=== PATIENT | male | born 1960 | race Caucasian/White ===

== ENCOUNTER → 2018-02-27 11:18 | Outpatient (CLI) | payer OTHER, MEDICAID, SELFPAY ==
--- NOTE | 2018-02-27 | DI.MRI.S_ITS ---
PROCEDURE: MR HEAD/BRAIN WO CON INDICATIONS: MEMORY LOSS/WEAKNESS TECHNIQUE: Noncontrast axial T1 spin echo, axial T2 fast spin echo, sagittal and axial FLAIR, coronal T2 fast spin echo, axial gradient echo, axial diffusion and ADC through the brain. COMPARISON: None. FINDINGS: Image quality: Excellent. CSF Spaces: Basal cisterns are patent. No extra-axial fluid collections. Ventricles are normal in size and shape. Brain: No intracranial masses or hemorrhage. Fernandez/white matter interface is normal. Brainstem appears normal. Diffusion-weighted images demonstrate no acute ischemic insult. No chronic ischemic insults. Normal intravascular flow voids are present. Skull and face: Calvarium has normal marrow signal. Orbits appear normal. Sinuses: Sinuses and mastoids are clear. IMPRESSION: Normal for age, source of current symptoms is not seen. Dictated by: Pepe Espana M.D. on 02/27/2018 at 12:36 Approved by: Pepe Espana M.D. on 02/27/2018 at 12:37
== END ==
PROVIDERS: Family Provider Family Medicine; Visit Provider Specialist
DX: R41.3 Other amnesia (principal); R53.1 Weakness
CPT/HCPCS: 70551

== ENCOUNTER → 2018-08-24 10:35 | Outpatient (CLI) | payer OTHER, MEDICAID, SELFPAY ==
--- NOTE | 2018-08-24 | DI.RAD.S_ITS ---
PROCEDURE: XR LUMBAR SPINE MIN 4V INDICATIONS: BACK PAIN TECHNIQUE: 5 views of the lumbar spine acquired. COMPARISON: None. FINDINGS: Bones: 5 nonrib-bearing vertebrae are present. Trace multilevel retrolisthesis. Trace spondylolisthesis L4-L5. Multilevel disc degeneration, severe L5-S1. Moderate L4-L5 and L5-S1 facet joint arthropathy. No vertebral body compression fractures. No suspicious bony lesions. Soft tissues: Overlying bowel gas pattern is normal. No suspicious soft tissue calcifications. Flexion/extension: There is limited range of motion, with preserved normal alignment. IMPRESSION: 1. Limited range of motion and multilevel degenerative changes. Dictated by: Hi Penaloza [facility] Interpreted: Jennifer Stahl MD on 08/24/2018 at 11:18 Approved by: Jennifer Stahl M.D. on 08/24/2018 at 12:22
== END ==
PROVIDERS: Family Provider Family Medicine; Visit Provider Family Medicine
DX: M51.37 Other intervertebral disc degeneration, lumbosacral region (principal); M47.26 Other spondylosis with radiculopathy, lumbar region; M47.27 Other spondylosis with radiculopathy, lumbosacral region
CPT/HCPCS: 72110

== ENCOUNTER → 2021-07-30 08:22 | Outpatient (CLI) | payer MEDICARE, OTHER, MEDICAID, SELFPAY ==
[2021-07-30 19:39] LABS: Add Manual Diff / Slide Review NO; Basophils Absolute Auto 100 /uL (0-100); Basophils Percent Auto 0.6 % (0-2); Eosinophils Absolute Auto 100 /uL (0-450); Eosinophils Percent Auto 1.4 % (2-4); Hematocrit 51.4 % (41-53); Hemoglobin 17.6 g/dL (13.5-17.5); Lymphocytes Absolute Auto 3400 /uL (1100-4500); Lymphocytes Percent Auto 34.5 % (25-40); Mean Corpuscular HGB Conc 34.2 % (30-36); Mean Corpuscular Hemoglobin 32.5 PG (26-34); Mean Corpuscular Volume 94.9 fL (80-100); Monocytes Absolute Auto 1000 /uL (0-900); Monocytes Percent Auto 10.2 % (3-14); Neutrophils Absolute Auto 5300 /uL (1500-7000); Neutrophils Percent Auto 53.3 % (50-75); Platelet Count 247 X10^3/uL (150-400); Red Blood Cell Count 5.41 X10^6/uL (4.5-5.9); Red Cell Distribution Width 13.5 % (11.6-14.8)
[2021-07-30 20:00] LABS: Alanine Aminotransferase 60 IU/L (<50); Albumin Globulin Ratio 1.5 (1.0-2.8); Alkaline Phosphatase 97 U/L (38-126); Aspartate Aminotransferase 34 IU/L (17-59); BUN Creatinine Ratio 13.8 (6-22); Bilirubin Total 1.4 mg/dL (0.2-1.3); Blood Urea Nitrogen 15 mg/dL (9-20); Calcium 9.5 mg/dL (8.4-10.2); Carbon Dioxide 29 mmol/L (22-32); Chloride 103 mmol/L (98-107); Cholesterol 148 mg/dL (140-199); Estimated Glomerular Filt Rate > 60.0 mL/min (>60); Globulin 2.7 g/dL (1.7-4.1); Glucose 114 mg/dL (80-110); HDL Cholesterol 27 mg/dL (40-60); HEMOLYSIS < 15 (0-50); LDL Cholesterol Calculated 76 mg/dL (<100); Potassium 4.6 mmol/L (3.4-5.1); Sodium 138 mmol/L (137-145); Total Protein 6.7 g/dL (6.3-8.2); Triglycerides 223 mg/dL (35-150)
== END ==
PROVIDERS: Family Provider Family Medicine; PCP Physician Assistant; Visit Provider Physician Assistant
DX: R06.83 Snoring (principal); E78.5 Hyperlipidemia, unspecified; I10 Essential (primary) hypertension
CPT/HCPCS: 80053; 80061; 85025

== ENCOUNTER → 2021-10-16 09:57 | Outpatient (CLI) | payer MEDICARE, MEDICAID, SELFPAY ==
--- NOTE | 2021-10-16 09:58 | DI.MRI.S_ITS ---
PROCEDURE: MR LUMBAR SPINE WO CON INDICATIONS: Chronic progressive low back pain TECHNIQUE: Noncontrast sagittal T1 spin echo and T2 fast echo, sagittal STIR, axial T1 and T2 fast spin echo through the lumbar spine. In cases with scoliosis, additional coronal T2 fast spin echo may be performed. COMPARISON: None. FINDINGS: Image quality: Excellent. Alignment and Curvature: There is normal bony alignment. Bone Marrow: Marrow is of normal overall signal. No acute vertebral body compression fractures. Spinal Cord: Conus medullaris terminates at the L1 level. Visualized cord demonstrates normal signal and size. Paraspinous Soft Tissues: No paravertebral masses. T12-L1: Normal appearance. L1-L2: Normal appearance. L2-L3: Disc space narrowing with circumferential disc bulge present. There is a superimposed left subarticular protrusion extrusion and subligamentous inferior migration disc fragment to the level of the mid L3. There is effacement of the left lateral recess well as moderate left foraminal stenosis present. Minimal central and no right foraminal stenosis. L3-L4: Disc space narrowing and vacuum disc phenomena present. There is a circumferential disc bulge with mild central stenosis present. Arthropathy results in moderate right and left foraminal stenosis. L4-L5: Disc height is preserved. Moderate facet arthropathy present. No central stenosis. Moderate bilateral foraminal stenosis noted. L5-S1: Normal appearance. IMPRESSION: 1. Focal left subarticular disc protrusion at L2-3 fills the left lateral recess and results in moderate left foraminal stenosis. 2. Multilevel degenerative disc disease and arthropathy also results in varying degrees central and foraminal stenosis including moderate foraminal stenosis L3-4 and L4-5 Approved by: Hesham Murray M.D. on 10/17/2021 at 9:51
== END ==
PROVIDERS: Family Provider Family Medicine; PCP Physician Assistant; Referring Provider Physical Medicine & Rehabilitation; Visit Provider Physical Medicine & Rehabilitation
DX: M51.26 Other intervertebral disc displacement, lumbar region (principal); M51.36 Other intervertebral disc degeneration, lumbar region; M47.816 Spondylosis without myelopathy or radiculopathy, lumbar region; M48.061 Spinal stenosis, lumbar region without neurogenic claudication; G89.29 Other chronic pain
CPT/HCPCS: 72148

== ENCOUNTER → 2021-11-16 08:57 | Outpatient (CLI) | payer MEDICARE, MEDICAID, SELFPAY ==
[2021-11-16 20:51] LABS: Alanine Aminotransferase 37 IU/L (<50); Albumin 4.2 g/dL (3.5-5.0); Albumin Globulin Ratio 1.5 (1.0-2.8); Alkaline Phosphatase 88 U/L (38-126); Aspartate Aminotransferase 31 IU/L (17-59); BUN Creatinine Ratio 14.1 (6-22); Bilirubin Total 1.3 mg/dL (0.2-1.3); Blood Urea Nitrogen 14 mg/dL (9-20); Calcium 9.2 mg/dL (8.4-10.2); Carbon Dioxide 31 mmol/L (22-32); Chloride 104 mmol/L (98-107); Cholesterol 132 mg/dL (140-199); Estimated Glomerular Filt Rate > 60.0 mL/min (>60); Globulin 2.8 g/dL (1.7-4.1); Glucose 98 mg/dL (80-110); HDL Cholesterol 29 mg/dL (40-60); HEMOLYSIS 15 (0-50); LDL Cholesterol Calculated 64 mg/dL (<100); Potassium 4.4 mmol/L (3.4-5.1); Sodium 138 mmol/L (137-145); Triglycerides 193 mg/dL (35-150)
== END ==
PROVIDERS: Family Provider Family Medicine; PCP Physician Assistant; Visit Provider Physician Assistant
DX: E78.5 Hyperlipidemia, unspecified (principal); R73.9 Hyperglycemia, unspecified; R74.8 Abnormal levels of other serum enzymes
CPT/HCPCS: 80053; 80061

== ENCOUNTER → 2022-01-31 07:04 | Outpatient (CLI) | payer MEDICARE, MEDICAID, SELFPAY ==
[2022-01-31 20:57] LABS: COVID19 - ORCAS (NP or Nasal) Negative (Negative)
== END ==
PROVIDERS: Family Provider Family Medicine; PCP Physician Assistant; Visit Provider Family Medicine
DX: Z20.822 Contact with and (suspected) exposure to COVID-19 (principal); Z01.812 Encounter for preprocedural laboratory examination
CPT/HCPCS: C9803; U0003

== ENCOUNTER 2022-02-01 15:19 | Outpatient (CLI) | payer MEDICARE, MEDICAID, SELFPAY ==
[2022-02-01] VITALS (8 sets, daily range): BP systolic 125–160; BP diastolic 74–101; PULSE 76–83; RESP 12–20; O2SAT 94–98
--- NOTE | 2022-02-01 15:21 | DI.RAD.S_ITS ---
PROCEDURE: PAIN L/S TRANSFORAMINAL INJECT INDICATIONS: SPONDYLOSIS COMPARISON: None. FINDINGS: Fluoroscopic spot filming was performed to verify placement of spinal needles at the left L2-L3 neural foraminal level(s), as labeled on the films. Appropriate location(s) of the needle tip(s) was confirmed by injection of iodinated contrast. IMPRESSION: Access needle at the left L2-L3 neural foramen for transforaminal epidural steroid injection. Dictated by: Anusha Hensley MD, PhD on 02/01/2022 at 16:47 Approved by: Anusha Hensley MD, PhD on 02/01/2022 at 16:47
[2022-02-01] MEDS: MIDAZOLAM 2 MG/2 ML VIAL IV (15:58)
[2022-02-01] MEDS: BUPIVACAINE 0.25% (PF) VIAL 2 ML INJ (16:02)
[2022-02-01] MEDS: IOPAMIDOL 15 ML VIAL 3 ML INJ (16:02)
[2022-02-01] MEDS: DEXAMETHASONE 10 MG/ML VIAL 20 MG INJ (16:03)
[2022-02-01] MEDS: MIDAZOLAM 2 MG/2 ML VIAL (16:04)
[2022-02-01] MEDS: BETAMETHASONE 30 MG/5 ML MDV 6 MG INJ (16:05)
--- NOTE | 2022-02-01 16:15 | PM.PROC.IR.1 ---
Date/Time/Diagnoses Date of procedure: 02/01/22 Time of procedure: 16:15 Pre-procedure diagnosis: 1. FORAMINAL STENOSIS WITH LE SYMPTOMS Post-procedure diagnosis: same Procedure Notes Procedure: 1. FLUOROSCOPICALLY GUIDED CONTRAST CONTROLLED TRANSFORAMINAL EPIDURAL STEROID INJECTION - LEFT L2/3 TFESI Indications: Leroy is referred by PAC Ruperto for treatment of Foraminal Stenosis with left LE Symptoms Physician: Tod Samuels Total Fluoroscopy time (seconds): 8 Total sedation minutes: 12 Complications: none Procedure in detail & Post-procedure care: FINDINGS Foraminal Nerve Root Compression secondary to disc disease and facet hypertrophy DESCRIPTION OF PROCEDURE Following review of allergy and review of potential side effects and complications, including, but not necessarily limited to, infection, allergic reaction, local tissue breakdown, stroke, temporary or permanent nerve injury, paralysis, and possible , the patient indicated that the patient understood and agreed to proceed. An informed consent document was signed by the patient, witnessed by a nurse, and placed in the patient's chart. Additionally, other treatment options including medications, modalities, and physical therapy were reviewed with the patient. After review of previous anaesthesic history and IV conscious sedation the patient was deemed safe to proceed with today?s procedure with IV conscious sedation as ASA class II designation. Safety time-out was performed to confirm patient ID, procedure to be performed and site of procedure. IV sedation was accomplished with a combination of 4mg of Versed was administered by the RN after DO order, titrated to patient comfort during the course of the procedure while the patient remained responsive to all verbal commands In the prone position following sterile prep and drape of the lumbar region, the left L2/3 posterior neuroforamen was identified fluoroscopically. The skin was anesthetized via a 25-gauge 1.5-inch needle with 1% lidocaine solution. At this point, a 22-gauge 5-inch spinal needle was atraumatically introduced and advanced under fluoroscopic guidance through the posterior left L2/3 neuroforamen to approximately the anterior aspect of the canal. Depth was confirmed on lateral view. Following negative aspiration, injection of approximately 1.5 cc of Isovue 200 under live fluoroscopy in the AP view confirmed excellent flow along the nerve root, into the epidural space without vascular or intrathecal uptake observed Radiological data, including multiple fluoroscopic views of the lumbosacral spine, reveal a spinal needle at the left L2/3 posterior neuroforamen. Subsequent views show flow of contrast material flowing superiorly and inferiorly along the nerve root confirming epidural flow. Subsequently, a test dose of 1.5cc of 1% lidocaine solution was administered and patient was observed for two minutes for signs or symptoms of complications, including abdominal pain, shortness of breath, bilateral upper or lower extremity weakness, nausea and vomiting, prior to steroid injection. At this point, a total of 3cc or 20mg of dexamethasone and 6mg betamethasone was injected without incident. The patient tolerated the procedure well without signs or symptoms of complications prior to transfer to the recovery area continued monitoring without incident. The patient was then transferred to the recovery area where they were observed for an appropriate time after the injection. The patient reported a VAS score of 7 prior to the procedure and a post-procedure VAS of 0. POST OP INSTRUCTIONS The patient was provided a Pain Log to continue to record their response to the target-specific procedure prior to follow-up visit with their referring physician. Additionally, specific post-injection care instructions and a contact number to our office were provided if concerns arise regarding possible complications associated with the procedure are suspected.
== END 2022-02-01 16:40 | disposition home or self-care (01) ==
LOC: RAD 15:19
PROVIDERS: Family Provider Family Medicine; PCP Physician Assistant; Referring Provider Physical Medicine & Rehabilitation; Visit Provider Physical Medicine & Rehabilitation
DX: M48.061 Spinal stenosis, lumbar region without neurogenic claudication (principal); M51.16 Intervertebral disc disorders with radiculopathy, lumbar region
CPT/HCPCS: 64483; 99152; J0702; J1100; J2250

== ENCOUNTER → 2022-06-09 09:13 | Outpatient (CLI) | payer MEDICARE, MEDICAID, SELFPAY ==
[2022-06-10 03:00] LABS: Add Manual Diff / Slide Review NO; Basophils Absolute Auto 100 /uL (0-100); Basophils Percent Auto 0.7 % (0-2); Eosinophils Absolute Auto 100 /uL (0-450); Hematocrit 50.8 % (41-53); Hemoglobin 17.5 g/dL (13.5-17.5); Lymphocytes Absolute Auto 3200 /uL (1100-4500); Lymphocytes Percent Auto 35.8 % (25-40); Mean Corpuscular HGB Conc 34.5 % (30-36); Mean Corpuscular Hemoglobin 32.2 PG (26-34); Mean Corpuscular Volume 93.1 fL (80-100); Monocytes Absolute Auto 900 /uL (0-900); Monocytes Percent Auto 10.5 % (3-14); Neutrophils Absolute Auto 4600 /uL (1500-7000); Platelet Count 247 X10^3/uL (150-400); Red Blood Cell Count 5.46 X10^6/uL (4.5-5.9); Red Cell Distribution Width 13.1 % (11.6-14.8); White Blood Cell Count 8.9 X10^3/uL (4.5-11.0)
[2022-06-10 04:34] LABS: Alanine Aminotransferase 34 IU/L (<50); Albumin 4.1 g/dL (3.5-5.0); Albumin Globulin Ratio 1.5 (1.0-2.8); Alkaline Phosphatase 108 U/L (38-126); Aspartate Aminotransferase 26 IU/L (17-59); BUN Creatinine Ratio 13.7 (6-22); Bilirubin Total 1.4 mg/dL (0.2-1.3); Blood Urea Nitrogen 14 mg/dL (9-20); Calcium 9.1 mg/dL (8.4-10.2); Carbon Dioxide 29 mmol/L (22-32); Chloride 98 mmol/L (98-107); Cholesterol 142 mg/dL (140-199); Estimated Glomerular Filt Rate > 60 mL/min (>60); Globulin 2.8 g/dL (1.7-4.1); Glucose 109 mg/dL (80-110); HDL Cholesterol 30 mg/dL (40-60); HEMOLYSIS < 15 (0-50); LDL Cholesterol Calculated 68 mg/dL (<100); Potassium 4.7 mmol/L (3.4-5.1); Sodium 138 mmol/L (137-145); Total Protein 6.9 g/dL (6.3-8.2); Triglycerides 221 mg/dL (35-150)
[2022-06-10 05:07] LABS: Prostate Specific Antigen Scrn 0.249 ng/mL (0.1-4.0)
[2022-06-10 05:31] LABS: Hep C Virus Ab w/Reflex Quant NEGATIVE s/c (NEGATIVE)
== END ==
PROVIDERS: Family Provider Family Medicine; PCP Physician Assistant; Visit Provider Physician Assistant Medical
DX: E78.5 Hyperlipidemia, unspecified (principal); I10 Essential (primary) hypertension; Z11.59 Encounter for screening for other viral diseases; Z12.11 Encounter for screening for malignant neoplasm of colon; Z12.5 Encounter for screening for malignant neoplasm of prostate; Z79.899 Other long term (current) drug therapy
CPT/HCPCS: 80053; 80061; 85025; 86803; G0103

== ENCOUNTER → 2022-09-05 09:30 | Outpatient (CLI) | payer MEDICARE, MEDICAID, SELFPAY ==
[2022-09-05 20:25] LABS: Alanine Aminotransferase 45 IU/L (<50); Albumin 4.2 g/dL (3.5-5.0); Albumin Globulin Ratio 1.4 (1.0-2.8); Alkaline Phosphatase 112 U/L (38-126); Aspartate Aminotransferase 35 IU/L (17-59); BUN Creatinine Ratio 15.4 (6-22); Bilirubin Total 1.7 mg/dL (0.2-1.3); Blood Urea Nitrogen 14 mg/dL (9-20); Calcium 9.2 mg/dL (8.4-10.2); Carbon Dioxide 24 mmol/L (22-32); Chloride 101 mmol/L (98-107); Cholesterol 150 mg/dL (140-199); Estimated Glomerular Filt Rate > 60 mL/min (>60); Globulin 2.9 g/dL (1.7-4.1); Glucose 106 mg/dL (80-110); HDL Cholesterol 33 mg/dL (40-60); HEMOLYSIS 47 (0-50); LDL Cholesterol Calculated 70 mg/dL (<100); Potassium 4.7 mmol/L (3.4-5.1); Sodium 136 mmol/L (137-145); Total Protein 7.1 g/dL (6.3-8.2); Triglycerides 233 mg/dL (35-150)
== END ==
PROVIDERS: Family Provider Family Medicine; PCP Physician Assistant; Visit Provider Physician Assistant
DX: E78.1 Pure hyperglyceridemia (principal)
CPT/HCPCS: 80053; 80061

== ENCOUNTER → 2022-10-18 11:43 | Outpatient (CLI) | payer MEDICARE, MEDICAID, SELFPAY ==
[2022-10-18 19:00] LABS: Add Manual Diff / Slide Review NO; Basophils Absolute Auto 100 /uL (0-100); Basophils Percent Auto 0.9 % (0-2); Eosinophils Absolute Auto 100 /uL (0-450); Eosinophils Percent Auto 0.6 % (2-4); Hematocrit 48.3 % (41-53); Lymphocytes Absolute Auto 2900 /uL (1100-4500); Mean Corpuscular HGB Conc 35.1 % (30-36); Mean Corpuscular Hemoglobin 32.2 PG (26-34); Mean Corpuscular Volume 91.7 fL (80-100); Monocytes Absolute Auto 800 /uL (0-900); Monocytes Percent Auto 8.3 % (3-14); Neutrophils Absolute Auto 5600 /uL (1500-7000); Neutrophils Percent Auto 59.2 % (50-75); Platelet Count 203 X10^3/uL (150-400); Red Blood Cell Count 5.27 X10^6/uL (4.5-5.9); Red Cell Distribution Width 12.8 % (11.6-14.8); White Blood Cell Count 9.4 X10^3/uL (4.5-11.0)
[2022-10-18 19:16] LABS: Alanine Aminotransferase 61 IU/L (<50); Albumin 4.3 g/dL (3.5-5.0); Albumin Globulin Ratio 1.5 (1.0-2.8); Alkaline Phosphatase 101 U/L (38-126); Aspartate Aminotransferase 35 IU/L (17-59); BUN Creatinine Ratio 16.8 (6-22); Bilirubin Total 0.8 mg/dL (0.2-1.3); Blood Urea Nitrogen 17 mg/dL (9-20); Calcium 9.3 mg/dL (8.4-10.2); Carbon Dioxide 24 mmol/L (22-32); Chloride 101 mmol/L (98-107); Estimated Glomerular Filt Rate > 60 mL/min (>60); Globulin 2.9 g/dL (1.7-4.1); Glucose 109 mg/dL (80-110); HEMOLYSIS < 15 (0-50); Potassium 4.5 mmol/L (3.4-5.1); Sodium 138 mmol/L (137-145); Total Protein 7.2 g/dL (6.3-8.2)
[2022-10-18 19:19] LABS: NT-proBNP (BNP-Adult 18+) 31 pg/mL (<125)
[2022-10-18 19:54] LABS: TSH w/ Reflex to FT4 2.14 uIU/mL (0.47-4.68)
== END ==
PROVIDERS: Family Provider Family Medicine; PCP Physician Assistant; Visit Provider Family Medicine
DX: I10 Essential (primary) hypertension (principal); R53.83 Other fatigue; R60.9 Edema, unspecified; R42 Dizziness and giddiness
CPT/HCPCS: 80053; 83880; 84443; 85025

== ENCOUNTER → 2022-11-30 14:27 | Outpatient (CLI) | payer MEDICARE, MEDICAID, SELFPAY ==
[2022-11-30 19:07] LABS: Add Manual Diff / Slide Review NO; Basophils Absolute Auto 100 /uL (0-100); Basophils Percent Auto 0.6 % (0-2); Eosinophils Absolute Auto 100 /uL (0-450); Eosinophils Percent Auto 0.7 % (2-4); Hematocrit 48.8 % (41-53); Lymphocytes Absolute Auto 3300 /uL (1100-4500); Lymphocytes Percent Auto 36.6 % (25-40); Mean Corpuscular HGB Conc 34.8 % (30-36); Mean Corpuscular Hemoglobin 32.1 PG (26-34); Mean Corpuscular Volume 92.2 fL (80-100); Monocytes Absolute Auto 800 /uL (0-900); Monocytes Percent Auto 9.2 % (3-14); Neutrophils Absolute Auto 4800 /uL (1500-7000); Neutrophils Percent Auto 52.9 % (50-75); Platelet Count 246 X10^3/uL (150-400); Red Blood Cell Count 5.29 X10^6/uL (4.5-5.9); Red Cell Distribution Width 13.6 % (11.6-14.8); White Blood Cell Count 9.1 X10^3/uL (4.5-11.0)
[2022-11-30 19:29] LABS: Alanine Aminotransferase 53 IU/L (<50); Albumin 4.1 g/dL (3.5-5.0); Albumin Globulin Ratio 1.3 (1.0-2.8); Alkaline Phosphatase 102 U/L (38-126); Aspartate Aminotransferase 41 IU/L (17-59); BUN Creatinine Ratio 19.4 (6-22); Bilirubin Total 1.2 mg/dL (0.2-1.3); Blood Urea Nitrogen 18 mg/dL (9-20); Calcium 8.9 mg/dL (8.4-10.2); Carbon Dioxide 25 mmol/L (22-32); Chloride 102 mmol/L (98-107); Estimated Glomerular Filt Rate > 60 mL/min (>60); Globulin 3.1 g/dL (1.7-4.1); Glucose 111 mg/dL (80-110); HEMOLYSIS < 15 (0-50); Potassium 4.7 mmol/L (3.4-5.1); Sodium 136 mmol/L (137-145); Total Protein 7.2 g/dL (6.3-8.2)
[2022-12-02 02:29] LABS: HBsAg Screen Negative (Negative); Hepatitis A Antibody IgM Negative (Negative); Hepatitis B Core Antibody IgM Negative (Negative); Hepatitis C Antibody Non Reactive (Non Reactive)
== END ==
PROVIDERS: Family Provider Family Medicine; PCP Physician Assistant; Visit Provider Family Medicine
DX: I10 Essential (primary) hypertension (principal); R10.9 Unspecified abdominal pain; R74.01 Elevation of levels of liver transaminase levels
CPT/HCPCS: 80053; 80074; 85025

== ENCOUNTER → 2022-12-02 08:44 | Outpatient (CLI) | payer MEDICARE, MEDICAID, SELFPAY ==
--- NOTE | 2022-12-02 08:49 | DI.CT.S_ITS ---
PROCEDURE: CT ABDOMEN PELVIS W CON INDICATIONS: LLQ pain, and epigastric pain TECHNIQUE: After the administration of oral and intravenous contrast, axial sections were acquired from the lung bases to the pubic symphysis. Coronal and sagittal reformats were performed. For radiation dose reduction, the following was used: automated exposure control, adjustment of mA and/or kV according to patient size. COMPARISON:None. FINDINGS: Image quality: Excellent. Lung bases: Unremarkable. Heart: No significant findings. ABDOMEN: Liver: Low-attenuation, presumably steatosis. Gallbladder: Absent. Biliary ducts: Unremarkable. Pancreas: Unremarkable. Spleen: Unremarkable. Adrenal Glands: Unremarkable. Kidneys and Ureters: Unremarkable. Stomach and Bowel: Small segment of sigmoid wall thickening in the presence of diverticula. No adjacent abscess or free air. Peritoneum: No abnormal intraperitoneal fluid. No free air. Ventral Wall: No hernia. Abdominal Nodes: No retroperitoneal or mesenteric adenopathy by size criteria. Vessels: Aorta and inferior vena cava are normal in size. PELVIS: Pelvic Organs: Unremarkable. Bladder: Unremarkable. Pelvic Nodes: No enlarged lymph nodes. Miscellaneous: No inguinal hernias are seen. Bones: Unremarkable. IMPRESSION: Uncomplicated sigmoid diverticulitis. No abscess or perforation. Dictated by: Suraj Dean M.D. on 12/02/2022 at 10:59 Approved by: Suraj Dean M.D. on 12/02/2022 at 11:01
== END ==
PROVIDERS: Family Provider Family Medicine; PCP Physician Assistant; Referring Provider Family Medicine; Visit Provider Family Medicine
DX: R10.9 Unspecified abdominal pain (principal); R74.01 Elevation of levels of liver transaminase levels; K57.92 Diverticulitis of intestine, part unspecified, without perforation or abscess without bleeding
CPT/HCPCS: 74177

== ENCOUNTER 2022-12-26 19:05 | Emergency (ER) | payer MEDICARE, SELFPAY ==
[2022-12-26 19:15] VITALS: BP 135/100; PULSE 89; RESP 18; TEMP 36.9; O2SAT 94; BMI 41.8
[2022-12-26 20:22] VITALS: BP 146/76; PULSE 81; O2SAT 92
--- NOTE | 2022-12-26 20:36 | ED_ITS ---
HPI - Back Pain/Injury General Chief Complaint: Back Pain/Injury Stated Complaint: Back Pain Time Seen by Provider: 12/26/22 20:01 Source: patient and EMS Mode of arrival: EMS Limitations: no limitations History of Present Illness HPI Narrative: Patient is a 62-year-old male who arrives the emergency department for left- sided back discomfort. Symptoms started approximately 3 days ago after waking up. There was not 1 specific incident where he had the symptoms. He is not having any urinary symptoms nor change in bowel habits. No radiation down into his legs. He did receive pain medication by EMS prior to arrival. States that it is not significantly worse by touching the area. No fevers. Skin changes over the area. Related Data Previous Rx's Medication Instructions Recorded celecoxib 200 mg capsule (Celebrex) 200 mg PO DAILY #90 caps 01/10/22 omeprazole 20 mg capsule,delayed See Rx Instructions .Route 08/22/22 release .COMPLEX #90 caps fenofibrate nanocrystallized 48 mg See Rx Instructions .Route 10/20/22 tablet .COMPLEX #30 tabs spironolactone 25 mg tablet 25 mg PO QAM #30 tabs 10/21/22 atorvastatin 10 mg tablet See Rx Instructions .Route 10/24/22 .COMPLEX #100 tabs amoxicillin 875 mg-potassium 1 tab PO BID #42 tabs 12/19/22 clavulanate 125 mg tablet cyclobenzaprine 10 mg tablet 10 mg PO TID PRN muscle spasm #21 12/26/22 tabs hydrocodone 5 mg-acetaminophen 325 1 tab PO Q8H PRN pain #10 tabs 12/26/22 mg tablet prednisone 20 mg tablet 20 mg PO DAILY 7 days #7 tabs 12/26/22 Allergies Allergy/AdvReac Type Severity Reaction Status Date / Time tree and shrub pollen Allergy Mild Verified 12/26/22 19:28 duloxetine [From Cymbalta] Allergy Unknown Verified 12/26/22 19:28 hydrochlorothiazide Allergy Unknown Verified 12/26/22 19:28 MOLDS Allergy Unknown Uncoded 12/26/22 19:28 Review of Systems Constitutional Constitutional: Reports system reviewed and no additional complaints, except as documented Gastrointestinal Gastrointestinal: Reports system reviewed and no additional complaints, except as documented Genitourinary Genitourinary: Reports system reviewed and no additional complaints, except as documented Musculoskeletal Musculoskeletal: Reports system reviewed and no additional complaints, except as documented Integumentary/Breasts Skin/Breast: Reports system reviewed and no additional complaints, except as documented Neurologic Neurologic: Reports system reviewed and no additional complaints, except as documented Patient History Medical History Elevated liver enzymes Encounter for removal of sutures Encounter for screening for other viral diseases Encounter for screening for respiratory tuberculosis Facet arthropathy, lumbar Herniated nucleus pulposus, L2-3 left HTN (hypertension), benign Lumbar foraminal stenosis Morbid obesity Nocturnal hypoxemia Obstructive sleep apnea of adult Primary insomnia Snoring Surgical History History of cholecystectomy History of testicular surgery Family History Father Diabetes mellitus Social History Smoking Status: Former smoker Smoking Status: Former smoker alcohol intake frequency: holidays/special occasions only Substance Use Type: marijuana Exam Initial Vital Signs Initial Vital Signs: Vital Signs Temperature 98.5 F 12/26/22 19:15 Pulse Rate 89 12/26/22 19:15 Respiratory Rate 18 12/26/22 19:15 Blood Pressure 135/100 H 12/26/22 19:15 Pulse Oximetry 94 12/26/22 19:15 Oxygen Delivery Method Room Air 12/26/22 19:15 HENMT Head: normal to inspection and normocephalic Back/Spine/Pelvis Back: No CVA tenderness Thoracic/Lumbar Spine: paraspinal tenderness, No thoracic spinal tenderness and No lumbar spinal tenderness Skin General: no rashes or lesions noted Neuro General: patient alert, patient awake and moves all extremities Extrem General: normal to inspection Course Orders Ordered: Discontinued Medications Hydrocodone Bitart/Acetaminophen (Hydrocodone/Acet 5/325 Prepack) 1 bottle MISC SEEINSTR ONE Stop: 12/26/22 20:38 Last Admin: 12/26/22 20:51 Dose: 1 bottle Documented By: LACIE Cyclobenzaprine HCl (Cyclobenzaprine 10 Mg Tablet) 10 mg PO NOW ONE Stop: 12/26/22 20:38 Last Admin: 12/26/22 20:51 Dose: 10 mg Documented By: LACIE Cyclobenzaprine HCl (Cyclobenzaprine 10 Mg Prepack) 1 bottle MISC SEEINSTR ONE Stop: 12/26/22 20:38 Last Admin: 12/26/22 20:51 Dose: 1 bottle Documented By: LACIE Prednisone (Prednisone 20 Mg Tablet) 20 mg PO NOW ONE Stop: 12/26/22 20:38 Last Admin: 12/26/22 20:51 Dose: 20 mg Documented By: LACIE Vital Signs Vital signs: Vital Signs - 8 hr 12/26/22 19:15 12/26/22 20:22 Temperature 98.5 F Pulse Rate 89 81 Respiratory Rate 18 Blood Pressure 135/100 H 146/76 H Pulse Oximetry 94 92 Oxygen Delivery Method Room Air Room Air MDM - Back Pain/Injury MDM Narrative Medical decision making narrative: Patient has history and physical exam that is consistent with a muscular etiology. He is no radicular symptoms. I have low suspicion for cauda equina, fracture, hematoma, abscess. No skin changes over the area. No indication for radiologic studies today. Was sent home with medications to try to control the symptoms however he will need to follow-up with his primary doctor to discuss potential further workup were advanced imaging. Patient was given return precautions. Discharge Plan Departure Patient Disposition: Home Clinical Impression: Lower back pain Instructions: DI for Low Back Pain, DI for Back Spasm Activity Restrictions/Additional Instructions: I recommend that you use the muscle relaxers in the pain medication as needed however take the steroids as directed. You can also use heat/ice and massage. Tried to stay as active as possible. Contact your primary doctor for follow-up. Prescriptions: New cyclobenzaprine 10 mg tablet 10 mg PO TID PRN (Reason: muscle spasm) Qty: 21 0RF hydrocodone-acetaminophen 5-325 mg tablet 1 tab PO Q8H PRN (Reason: pain) Qty: 10 0RF prednisone 20 mg tablet 20 mg PO DAILY 7 Days Qty: 7 0RF No Action omeprazole 20 mg capsule,delayed release(DR/EC) See Rx Instructions .ROUTE .COMPLEX Qty: 90 1RF Dose Instruction: TAKE ONE CAPSULE BY MOUTH EVERY DAY Rx Instructions: TAKE ONE CAPSULE BY MOUTH EVERY DAY fenofibrate nanocrystallized 48 mg tablet See Rx Instructions .ROUTE .COMPLEX Qty: 30 3RF Dose Instruction: TAKE ONE TABLET BY MOUTH EVERY DAY Rx Instructions: TAKE ONE TABLET BY MOUTH EVERY DAY atorvastatin 10 mg tablet See Rx Instructions .ROUTE .COMPLEX Qty: 100 2RF Dose Instruction: TAKE ONE TABLET BY MOUTH EVERY DAY AT BEDTIME Rx Instructions: TAKE ONE TABLET BY MOUTH EVERY DAY AT BEDTIME amoxicillin-pot clavulanate 875-125 mg tablet 1 tab PO BID Qty: 42 0RF spironolactone 25 mg tablet 25 mg PO QAM Qty: 30 5RF celecoxib [Celebrex] 200 mg capsule 200 mg PO DAILY Qty: 90 3RF Referrals: Sunshine Saravia MD [Primary Care Provider] - Stand Alone Forms: Patient Portal/API
[2022-12-26] MEDS: CYCLOBENZAPRINE 10 MG TABLET PO (20:51)
[2022-12-26] MEDS: predniSONE 20 MG TABLET PO (20:51)
[2022-12-26] MEDS: HYDROCODONE/ACET 5/325 PREPACK 1 BOTTLE MISC (20:51)
[2022-12-26] MEDS: CYCLOBENZAPRINE 10 MG PREPACK 1 BOTTLE MISC (20:51)
== END 2022-12-26 21:30 | disposition home or self-care (01) ==
PROVIDERS: Emergency Provider Emergency Medicine; Family Provider Family Medicine; PCP Family Medicine
DX: M54.50 Low back pain, unspecified (principal)
CPT/HCPCS: 99283

== ENCOUNTER 2022-12-27 16:11 | Observation (INO) | payer MEDICARE, MEDICAID, SELFPAY ==
[2022-12-27] VITALS (10 sets, daily range): BP systolic 124–138; BP diastolic 71–86; PULSE 66–76; RESP 12–18; TEMP 36.2–36.6; O2SAT 92–100; BMI 41.8
--- NOTE | 2022-12-27 16:18 | DI.CT.S_ITS ---
PROCEDURE: CT ABDOMEN PELVIS W CON INDICATIONS: severe abdominal pain, guarding TECHNIQUE: After the administration of intravenous contrast, axial sections acquired from the lung bases to the pubic symphysis. Coronal and sagittal reformats were performed. For radiation dose reduction, the following was used: automated exposure control, adjustment of mA and/or kV according to patient size. COMPARISON: [facility], CT, CT ABDOMEN PELVIS W CON, 12/02/2022, 10:25. FINDINGS: Image quality: Excellent. Lung bases: Unremarkable. Heart: No significant findings. ABDOMEN: Liver: There is diffuse hypoattenuation of the liver parenchyma relative to the spleen compatible with hepatic steatosis. Gallbladder: Status post cholecystectomy. Biliary ducts: Unremarkable. Pancreas: Unremarkable. Spleen: Unremarkable. Adrenal Glands: Unremarkable. Kidneys and Ureters: Kidneys are symmetric in size and enhancement, and there is no obstructive uropathy. No perinephric inflammatory changes. Ureters are normal in course and caliber. Stomach and Bowel: Stomach and small bowel loops appear unremarkable. Normal appearance of the appendix. Scattered colonic diverticulosis with persistent acute inflammatory changes involving the sigmoid colon. Degree of inflammatory changes appear to have progressed compared to the prior study. Findings appear to be most pronounced in the mid sigmoid colon. No evidence for perforation or abscess formation. Peritoneum: No abnormal intraperitoneal fluid. No free air. Ventral Wall: There is a fat-containing umbilical hernia without acute inflammation. Abdominal Nodes: No retroperitoneal or mesenteric adenopathy by size criteria. Vessels: Scattered atherosclerotic calcifications of the abdominal aorta and iliac vessels without aneurysmal dilatation. The inferior vena cava appears patent. PELVIS: Pelvic Organs: Unremarkable. Bladder: Unremarkable. Pelvic Nodes: No enlarged lymph nodes. Miscellaneous: No inguinal hernias are seen. Bones: No acute vertebral body compression fractures. Multilevel spondylitic changes throughout the imaged spine. No suspicious osseous lesions. IMPRESSION: 1. Persistent acute sigmoid diverticulitis which appears to have progressed compared to the prior study. No evidence for perforation or abscess formation. 2. Hepatic steatosis. 3. Status post cholecystectomy. 4. Normal appearance of the appendix. 5. Atherosclerosis. Other chronic findings as above. Dictated by: Regan Rocha M.D. on 12/27/2022 at 17:11 Approved by: Regan Rocha M.D. on 12/27/2022 at 17:17
[2022-12-27] MEDS: ONDANSETRON 4 MG/2 ML INJ IV (16:31)
[2022-12-27 16:36] LABS: Add Manual Diff / Slide Review NO; Basophils Absolute Auto 200 /uL (0-100); Basophils Percent Auto 1.1 % (0-2); Eosinophils Absolute Auto 0 /uL (0-450); Eosinophils Percent Auto 0.3 % (2-4); Hematocrit 48.3 % (41-53); Hemoglobin 16.8 g/dL (13.5-17.5); Lymphocytes Absolute Auto 5100 /uL (1100-4500); Lymphocytes Percent Auto 35.6 % (25-40); Mean Corpuscular HGB Conc 34.8 % (30-36); Mean Corpuscular Hemoglobin 31.6 PG (26-34); Mean Corpuscular Volume 90.9 fL (80-100); Monocytes Absolute Auto 1700 /uL (0-900); Monocytes Percent Auto 11.7 % (3-14); Neutrophils Absolute Auto 7300 /uL (1500-7000); Neutrophils Percent Auto 51.3 % (50-75); Platelet Count 369 X10^3/uL (150-400); Red Blood Cell Count 5.31 X10^6/uL (4.5-5.9); Red Cell Distribution Width 13.2 % (11.6-14.8); White Blood Cell Count 14.2 X10^3/uL (4.5-11.0)
[2022-12-27] MEDS: HYDROMORPHONE 0.5 MG INJ IV ×2 (16:38→19:31)
[2022-12-27 16:48] LABS: COVID19 -Nasal RAPID Negative (Negative)
[2022-12-27 16:51] LABS: Alanine Aminotransferase 43 IU/L (<50); Albumin 4.2 g/dL (3.5-5.0); Albumin Globulin Ratio 1.1 (1.0-2.8); Alkaline Phosphatase 96 U/L (38-126); Aspartate Aminotransferase 26 IU/L (17-59); BUN Creatinine Ratio 15.9 (6-22); Bilirubin Total 0.8 mg/dL (0.2-1.3); Blood Urea Nitrogen 17 mg/dL (9-20); Calcium 9.4 mg/dL (8.4-10.2); Carbon Dioxide 27 mmol/L (22-32); Chloride 99 mmol/L (98-107); Estimated Glomerular Filt Rate > 60 mL/min (>60); Glucose 76 mg/dL (80-110); HEMOLYSIS < 15 (0-50); Lipase 125 U/L (23-300); Potassium 3.9 mmol/L (3.4-5.1); Sodium 135 mmol/L (137-145); Total Protein 8.2 g/dL (6.3-8.2)
[2022-12-27 16:52] LABS: Lactate (Lactic Acid) 1.4 mmol/L (0.7-2.1)
--- NOTE | 2022-12-27 17:00 | ED_ITS ---
HPI - Back Pain/Injury General Chief Complaint: Back Pain/Injury Stated Complaint: abd/back pain Time Seen by Provider: 12/27/22 16:17 Source: patient and EMS History of Present Illness HPI Narrative: 62-year-old male former smoker with history complex diverticulitis, recently on Augmentin, back problems, hypertension presents by air medical transport for the 2nd time in his many days for evaluation of severe abdominal pain with radiation to his back. He denies dizziness, weakness or lightheadedness but does admit to nausea. He has no chest pain or shortness of breath but does admit to significant abdominal pain that seems to be worse in both the right and left lower quadrants. He denies any urinary complaints or change in bowel habits. He had been seen and evaluated last night in clinical picture was more consistent with back pain, however over the course of the day his belly pain has become more present and he was sent back for further evaluation. He states his pain is significantly worse when he moves and improves with rest. He denies any radiation of the pain other than to his back as noted. Related Data Previous Rx's Medication Instructions Recorded celecoxib 200 mg capsule (Celebrex) 200 mg PO DAILY #90 caps 01/10/22 omeprazole 20 mg capsule,delayed See Rx Instructions .Route 08/22/22 release .COMPLEX #90 caps fenofibrate nanocrystallized 48 mg See Rx Instructions .Route 10/20/22 tablet .COMPLEX #30 tabs spironolactone 25 mg tablet 25 mg PO QAM #30 tabs 10/21/22 atorvastatin 10 mg tablet See Rx Instructions .Route 10/24/22 .COMPLEX #100 tabs amoxicillin 875 mg-potassium 1 tab PO BID #42 tabs 12/19/22 clavulanate 125 mg tablet cyclobenzaprine 10 mg tablet 10 mg PO TID PRN muscle spasm #21 12/26/22 tabs hydrocodone 5 mg-acetaminophen 325 1 tab PO Q8H PRN pain #10 tabs 12/26/22 mg tablet prednisone 20 mg tablet 20 mg PO DAILY 7 days #7 tabs 12/26/22 Allergies Allergy/AdvReac Type Severity Reaction Status Date / Time tree and shrub pollen Allergy Mild Verified 12/27/22 13:53 duloxetine [From Cymbalta] Allergy Unknown Verified 12/27/22 13:53 hydrochlorothiazide Allergy Unknown Verified 12/27/22 13:53 Review of Systems Review of Systems Narrative: GENERAL: Denies chills, fatigue, malaise, fever, sweats. HEENT: Denies sinus pain, ear pain, sore throat, difficulty swallowing, dizzine ss. RESPIRATORY: Denies dyspnea, cough, wheezing, hemoptysis, sputum. CARDIOVASCULAR: Denies chest pain, palpitations, orthopnea, edema, GASTROINTESTINAL: See HPI : Denies dysuria, frequency, incontinence, hematuria, urinary retention. MUSCULOSKELETAL: denies weakness, joint pain, or bony pain SKIN: Denies rash, skin lesions, or other NEUROLOGIC: Denies weakness, headache, numbness, change in speech, confusion, seizures, incoordination. PSYCHIATRIC: No concerning psychosocial issues. 12 point review of systems is negative except for those stated above Patient History Medical History Elevated liver enzymes Encounter for removal of sutures Encounter for screening for other viral diseases Encounter for screening for respiratory tuberculosis Facet arthropathy, lumbar Herniated nucleus pulposus, L2-3 left HTN (hypertension), benign Lumbar foraminal stenosis Morbid obesity Nocturnal hypoxemia Obstructive sleep apnea of adult Primary insomnia Snoring Surgical History History of cholecystectomy History of testicular surgery Family History Father Diabetes mellitus Social History Smoking Status: Former smoker Smoking Status: Former smoker alcohol intake frequency: holidays/special occasions only Substance Use Type: marijuana Exam Narrative Exam Narrative: GENERAL: [62] year old patient appears stated age. Well-developed patient, in mild distress. HEAD: Atraumatic. Normocephalic. EYES: Pupils equal round and reactive. Extraocular motions intact. No scleral icterus. No injection or drainage. ENT: Nose without bleeding, purulent drainage. Throat without erythema, to nsillar hypertrophy or exudate. Airway patent. NECK: Trachea midline. Non tender CARDIOVASCULAR: Regular rate and rhythm without murmurs, gallops, or rubs. RESPIRATORY: Clear to auscultation. Breath sounds equal bilaterally. No wheezes, rales, or rhonchi. GASTROINTESTINAL: Abdomen soft, non-tender, nondistended. EXTREMITIES: No edema or joint tenderness. BACK: Nontender without deformity or crepitance. No flank tenderness. NEURO: AOx3. SKIN: No rash or erythema of visible areas Initial Vital Signs Initial Vital Signs: Vital Signs Temperature 97.8 F 12/27/22 16:17 Pulse Rate 74 12/27/22 16:17 Respiratory Rate 14 12/27/22 16:17 Blood Pressure 135/86 12/27/22 16:17 Pulse Oximetry 94 12/27/22 16:17 Oxygen Delivery Method Room Air 12/27/22 16:17 Course Orders Ordered: ED Orders 12/27/22 16:17 EKG-12 Lead Stat 12/27/22 16:18 CT abdomen pelvis w con Stat 12/27/22 16:20 Complete Blood Count AUTO DIFF Stat Comprehensive Metabolic Panel Stat Lactate (Lactic Acid) Stat Lipase Stat 12/27/22 16:23 COVID19 -Nasal RAPID Stat Metronidazole (Flagyl) 500 mg in 100 mls @ 100 mls/hr IV NOW ONE Stop: 12/27/22 18:43 Ciprofloxacin (Cipro) 400 mg in 200 mls @ 200 mls/hr IV NOW ONE Stop: 12/27/22 18:43 Ondansetron HCl (Ondansetron 4 Mg Odt) 4 mg PO NOW PRN PRN Reason: Nausea And Vomiting Ondansetron HCl (Ondansetron 4 Mg/2 Ml Inj) 4 mg IV NOW PRN PRN Reason: Nausea And Vomiting Discontinued Medications Hydromorphone HCl (Hydromorphone 0.5 Mg Inj) 0.5 mg IV NOW ONE Stop: 12/27/22 16:19 Last Admin: 12/27/22 16:38 Dose: 0.5 mg Documented By: ARON Ondansetron HCl (Ondansetron 4 Mg/2 Ml Inj) 4 mg IV NOW ONE Stop: 12/27/22 16:19 Last Admin: 12/27/22 16:31 Dose: 4 mg Documented By: SPF Vital Signs Vital signs: Vital Signs - 8 hr 12/27/22 16:17 12/27/22 16:20 12/27/22 16:30 Temperature 97.8 F Pulse Rate 74 76 Respiratory Rate 14 16 Blood Pressure 135/86 132/83 Pulse Oximetry 94 95 Oxygen Delivery Method Room Air 12/27/22 16:30 12/27/22 17:00 12/27/22 17:01 Temperature Pulse Rate 74 68 68 Respiratory Rate 12 12 Blood Pressure Pulse Oximetry 95 100 95 Oxygen Delivery Method Room Air Room Air 12/27/22 17:01 Temperature Pulse Rate Respiratory Rate Blood Pressure 127/71 Pulse Oximetry Oxygen Delivery Method MDM - Back Pain/Injury Lab Data 12/27/22 16:20 12/27/22 16:20 Labs: Lab Results 12/27/22 12/27/22 12/27/22 Range/Units 16:20 16:20 16:20 WBC 14.2 H (4.5-11.0) X10^3/uL RBC 5.31 (4.5-5.9) X10^6/uL Hgb 16.8 (13.5-17.5) g/dL Hct 48.3 (41-53) % MCV 90.9 (80-100) fL MCH 31.6 (26-34) PG MCHC 34.8 (30-36) % RDW 13.2 (11.6-14.8) % Plt Count 369 (150-400) X10^3/uL Neut % (Auto) 51.3 (50-75) % Lymph % (Auto) 35.6 (25-40) % [place] % (Auto) 11.7 (3-14) % Eos % (Auto) 0.3 L (2-4) % Baso % (Auto) 1.1 (0-2) % Neut # (Auto) 7300 H (9204-9494) /uL Lymph # (Auto) 5100 H (1131-7615) /uL [place] # (Auto) 1700 H (0-900) /uL Eos # (Auto) 0 (0-450) /uL Baso # (Auto) 200 H (0-100) /uL Sodium 135 L (137-145) mmol/L Potassium 3.9 (3.4-5.1) mmol/L Chloride 99 (98-107) mmol/L Carbon Dioxide 27 (22-32) mmol/L BUN 17 (9-20) mg/dL Creatinine 1.07 (0.66-1.25) mg/dL Estimated GFR > 60 (>60) mL/min BUN/Creatinine Ratio 15.9 (6-22) Glucose 76 L (80-110) mg/dL Lactate 1.4 (0.7-2.1) mmol/L Calcium 9.4 (8.4-10.2) mg/dL Total Bilirubin 0.8 (0.2-1.3) mg/dL AST 26 (17-59) IU/L ALT 43 (<50) IU/L Alkaline Phosphatase 96 (38-126) U/L Total Protein 8.2 (6.3-8.2) g/dL Albumin 4.2 (3.5-5.0) g/dL Globulin 4.0 (1.7-4.1) g/dL Albumin/Globulin Ratio 1.1 (1.0-2.8) Lipase 125 (23-300) U/L SARS-CoV-2 (PCR) (Negative) 12/27/22 Range/Units 16:23 WBC (4.5-11.0) X10^3/uL RBC (4.5-5.9) X10^6/uL Hgb (13.5-17.5) g/dL Hct (41-53) % MCV (80-100) fL MCH (26-34) PG MCHC (30-36) % RDW (11.6-14.8) % Plt Count (150-400) X10^3/uL Neut % (Auto) (50-75) % Lymph % (Auto) (25-40) % [place] % (Auto) (3-14) % Eos % (Auto) (2-4) % Baso % (Auto) (0-2) % Neut # (Auto) (4459-4758) /uL Lymph # (Auto) (5344-8644) /uL [place] # (Auto) (0-900) /uL Eos # (Auto) (0-450) /uL Baso # (Auto) (0-100) /uL Sodium (137-145) mmol/L Potassium (3.4-5.1) mmol/L Chloride (98-107) mmol/L Carbon Dioxide (22-32) mmol/L BUN (9-20) mg/dL Creatinine (0.66-1.25) mg/dL Estimated GFR (>60) mL/min BUN/Creatinine Ratio (6-22) Glucose (80-110) mg/dL Lactate (0.7-2.1) mmol/L Calcium (8.4-10.2) mg/dL Total Bilirubin (0.2-1.3) mg/dL AST (17-59) IU/L ALT (<50) IU/L Alkaline Phosphatase (38-126) U/L Total Protein (6.3-8.2) g/dL Albumin (3.5-5.0) g/dL Globulin (1.7-4.1) g/dL Albumin/Globulin Ratio (1.0-2.8) Lipase (23-300) U/L SARS-CoV-2 (PCR) Negative (Negative) MDM Narrative Medical decision making narrative: [62] year old patient presents with worsening abdominal pain Multiple etiologies for patient's symptoms considered including, but not limited to: [Perforation, abscess versus other] Prior Charts reviewed in our EMR Primary Historian: patient Labs reviewed and interpreted by myself: Leukocytosis with mild left shift, otherwise no significant abnormal findings Imaging reviewed: CT of abdomen and pelvis demonstrates interval worsening of diverticulitis but no evidence of perforation or abscess Consultations: Discussed with on-call surgery, Dr. Roach, no indication for surgery at this time, recommends hospitalization and changing over to Cipro and Flagyl, clear liquids okay. Discussed with hospitalist Dr. Brooks, happy to a ccept in inpatient status Discharge Plan Departure Patient Disposition: Admitted As Inpatient Clinical Impression: Diverticulitis, Failure of outpatient treatment Prescriptions: No Action omeprazole 20 mg capsule,delayed release(DR/EC) See Rx Instructions .ROUTE .COMPLEX Qty: 90 1RF Dose Instruction: TAKE ONE CAPSULE BY MOUTH EVERY DAY Rx Instructions: TAKE ONE CAPSULE BY MOUTH EVERY DAY fenofibrate nanocrystallized 48 mg tablet See Rx Instructions .ROUTE .COMPLEX Qty: 30 3RF Dose Instruction: TAKE ONE TABLET BY MOUTH EVERY DAY Rx Instructions: TAKE ONE TABLET BY MOUTH EVERY DAY atorvastatin 10 mg tablet See Rx Instructions .ROUTE .COMPLEX Qty: 100 2RF Dose Instruction: TAKE ONE TABLET BY MOUTH EVERY DAY AT BEDTIME Rx Instructions: TAKE ONE TABLET BY MOUTH EVERY DAY AT BEDTIME cyclobenzaprine 10 mg tablet 10 mg PO TID PRN (Reason: muscle spasm) Qty: 21 0RF hydrocodone-acetaminophen 5-325 mg tablet 1 tab PO Q8H PRN (Reason: pain) Qty: 10 0RF prednisone 20 mg tablet 20 mg PO DAILY 7 Days Qty: 7 0RF amoxicillin-pot clavulanate 875-125 mg tablet 1 tab PO BID Qty: 42 0RF spironolactone 25 mg tablet 25 mg PO QAM Qty: 30 5RF celecoxib [Celebrex] 200 mg capsule 200 mg PO DAILY Qty: 90 3RF Referrals: Sunshine Saravia MD [Primary Care Provider] -
--- NOTE | 2022-12-27 18:10 | PM.HP.1 ---
History of Present Illness History of Present Illness Date Patient Seen: 12/27/22 Time Patient Seen: 19:04 Chief complaint: abd/back pain Narrative: This is a 62 year old male with PMH of HTN, obesity, FRANCOIS, HLD who presents to the emergency room today with worsening abdominal pain. He was diagnosed with diverticulitis, managed as an outpatient with augmentin from 11/24-12/05. He presented back to primary care on 12/19 with recurrence of symptoms and was started on augmentin again. He did feel improved in between. He initially did improve with augmentin and clear liquid diet, but diarrhea returned along with worsening abdominal pain when he advanced his diet. He came to the ER with back pain yesterday evening, and was sent home for presumed musculoskeletal cause but returned today with worsening abdominal pain that radiates to his back. He denies fever, chills. He has very little appetite recently. He lost 13 lbs initially with his first episode, and more this episode but unclear how much. He denies melena or hematochezia, nausea, vomiting. He has had intermittent diarrhea, primarily present when symptoms are worse. He has felt feverish but has not checked his temp at home. He denies chest pain or shortness of breath. No LE edema or rash. In the emergency room, patient was afebrile, with remainder of vitals being unremarkable. CT scan showed worsened diverticulitis compared to prior study done on 12/02 (1st episode) without perforation or abscess. General surgery was consulted, requested admission to hospitalist service. [facility] Medical History Elevated liver enzymes Encounter for removal of sutures Encounter for screening for other viral diseases Encounter for screening for respiratory tuberculosis Facet arthropathy, lumbar Herniated nucleus pulposus, L2-3 left HTN (hypertension), benign Lumbar foraminal stenosis Morbid obesity Nocturnal hypoxemia Obstructive sleep apnea of adult Primary insomnia Snoring Surgical History History of cholecystectomy History of testicular surgery Family History (Updated 12/27/22 @ 19:00 by Bao Brooks DO) Father Diabetes mellitus Cancer Mother No pertinent past surgical history Social History Smoking Status: Former smoker Meds Home Medications and Allergies Home Medications Medication Instructions Recorded Confirmed Type celecoxib 200 mg capsule (Celebrex) 200 mg PO DAILY #90 caps 01/10/22 12/27/22 Rx omeprazole 20 mg capsule,delayed See Rx Instructions .Route 08/22/22 12/27/22 Rx release .COMPLEX #90 caps fenofibrate nanocrystallized 48 mg See Rx Instructions .Route 10/20/22 12/27/22 Rx tablet .COMPLEX #30 tabs spironolactone 25 mg tablet 25 mg PO QAM #30 tabs 10/21/22 12/27/22 Rx atorvastatin 10 mg tablet See Rx Instructions .Route 10/24/22 12/27/22 Rx .COMPLEX #100 tabs amoxicillin 875 mg-potassium 1 tab PO BID #42 tabs 12/19/22 12/27/22 Rx clavulanate 125 mg tablet cyclobenzaprine 10 mg tablet 10 mg PO TID PRN muscle spasm #21 12/26/22 12/27/22 Rx tabs hydrocodone 5 mg-acetaminophen 325 1 tab PO Q8H PRN pain #10 tabs 12/26/22 12/27/22 Rx mg tablet prednisone 20 mg tablet 20 mg PO DAILY 7 days #7 tabs 12/26/22 12/27/22 Rx Allergies Allergy/AdvReac Type Severity Reaction Status Date / Time tree and shrub pollen Allergy Mild Verified 12/27/22 13:53 duloxetine [From Cymbalta] Allergy Unknown Verified 12/27/22 13:53 hydrochlorothiazide Allergy Unknown Verified 12/27/22 13:53 Review of Systems Review of Systems Narrative: All other systems reviewed with the patient and are negative unless otherwise stated. Exam Vital Signs (past 8 hours): - 12/27/22 16:17 12/27/22 16:20 12/27/22 16:30 Temperature 97.8 F Pulse Rate 74 76 Respiratory Rate 14 16 Blood Pressure 135/86 132/83 Pulse Oximetry 94 95 Oxygen Delivery Method Room Air 12/27/22 16:30 12/27/22 17:00 12/27/22 17:01 Temperature Pulse Rate 74 68 68 Respiratory Rate 12 12 Blood Pressure Pulse Oximetry 95 100 95 Oxygen Delivery Method Room Air Room Air 12/27/22 17:01 Temperature Pulse Rate Respiratory Rate Blood Pressure 127/71 Pulse Oximetry Oxygen Delivery Method Oxygen Delivery Method Room Air Narrative Exam Narrative: General:? Patient is well developed and well nourished, in no distress at this time. Obese with BMI 41.8 HEENT:? Normocephalic, atraumatic, extraocular muscles intact, oral pharynx is clear and mucous membranes are moist. Neck: supple and symmetric, trachea is midline, no cervical adenopathy. Chest:? Normal AP diameter and contour without kyphoscoliosis, no tachypnea, equal chest rise bilaterally. Lungs:? CTA b/l no wheezing rhonchi or rales. Cardio:?RRR no m/r/g. Abdomen: soft, non-tender, non-distended (after diluadid) Musculoskeletal:? Muscle strength and tone are equal within normal limits, no deformity. Extremities: No edema or joint effusions. No cyanosis or clubbing. Skin:? Pale,? Warm to touch,dry and intact without rashes, ulcerations or petechiae.? Neuro:? Alert and orientated x3,? sensation to touch intact in all extremities, no gross deficits noted of cranial nerves. Psych:? Patient has a well-kept appearance, appropriate affect, mental status attitude thought context and judgment are appropriate for age. Objective Labs 12/27/22 16:20 12/27/22 16:20 Labs: Laboratory Results - last 24 hr 12/27/22 12/27/22 12/27/22 16:20 16:20 16:20 WBC 14.2 H RBC 5.31 Hgb 16.8 Hct 48.3 MCV 90.9 MCH 31.6 MCHC 34.8 RDW 13.2 Plt Count 369 Neut % (Auto) 51.3 Lymph % (Auto) 35.6 [place] % (Auto) 11.7 Eos % (Auto) 0.3 L Baso % (Auto) 1.1 Neut # (Auto) 7300 H Lymph # (Auto) 5100 H [place] # (Auto) 1700 H Eos # (Auto) 0 Baso # (Auto) 200 H Sodium 135 L Potassium 3.9 Chloride 99 Carbon Dioxide 27 BUN 17 Creatinine 1.07 Estimated GFR > 60 BUN/Creatinine Ratio 15.9 Glucose 76 L Lactate 1.4 Calcium 9.4 Total Bilirubin 0.8 AST 26 ALT 43 Alkaline Phosphatase 96 Total Protein 8.2 Albumin 4.2 Globulin 4.0 Albumin/Globulin Ratio 1.1 Lipase 125 SARS-CoV-2 (PCR) 12/27/22 16:23 WBC RBC Hgb Hct MCV MCH MCHC RDW Plt Count Neut % (Auto) Lymph % (Auto) [place] % (Auto) Eos % (Auto) Baso % (Auto) Neut # (Auto) Lymph # (Auto) [place] # (Auto) Eos # (Auto) Baso # (Auto) Sodium Potassium Chloride Carbon Dioxide BUN Creatinine Estimated GFR BUN/Creatinine Ratio Glucose Lactate Calcium Total Bilirubin AST ALT Alkaline Phosphatase Total Protein Albumin Globulin Albumin/Globulin Ratio Lipase SARS-CoV-2 (PCR) Negative Assessment & Plan Assessment & Plan narrative: 1. Recurrent diverticulitis - continue cipro/flagyl IV after failure of outpatient therapy with augmentin. Has been dealing with symptoms since 11/24 according to review of outpatient records. This is his 3rd episode of diverticulitis. His first episode was approx 4 years ago. He thinks prior C- scope was a bit longer than 5 years ago but cannot recall, he thinks it was unremarkable. - general surgery consultation. - rule out C. diff 2. HTN - hold antihypertensives for now, in setting of possible sepsis and low BP noted at [facility]. 3. Obesity - BMI 42 - The patient is at much higher risk for medical and surgical complications because of his obesity. This increases the difficulty and complexity of medical and surgical interventions and increases the chances of poor outcomes such as morbidity and mortality 4. HLD - continue fenofibrate Code: Full, surrogate: Friend Thelma (see contacts) Dispo: admit inpatient, stay is expected to exceed two midnights. DVT: Lovenox daily I have utilized all available immediate resources to obtain, update, or review the patient's current medications. Discussed care with patient, bedside nurse and additional history obtained via ER provider and extensive review of outpatient documentation from primary care clinics.
[2022-12-27] MEDS: CIPROFLOXACIN 400 MG/200 ML PIGGYBACK 200 MG IV (18:34)
[2022-12-27] MEDS: metroNIDAZOLE 500 MG/100 ML PIGGYBACK 100 MG IV (20:21)
[2022-12-27] MEDS: ATORVASTATIN 20 MG TABLET 10 MG PO (20:22)
[2022-12-28] VITALS (7 sets, daily range): BP systolic 99–128; BP diastolic 62–79; PULSE 72–85; RESP 16–19; TEMP 35.9–36.6; O2SAT 95–96
[2022-12-28] MEDS: OXYCODONE IR 5 MG TABLET PO ×2 (02:51→18:53)
[2022-12-28] MEDS: HYDROMORPHONE 0.5 MG INJ IV (03:38)
[2022-12-28] MEDS: metroNIDAZOLE 500 MG/100 ML PIGGYBACK 100 MG IV ×3 (03:42→20:27)
[2022-12-28 04:45] LABS: Add Manual Diff / Slide Review NO; Basophils Absolute Auto 100 /uL (0-100); Basophils Percent Auto 1.1 % (0-2); Eosinophils Absolute Auto 0 /uL (0-450); Eosinophils Percent Auto 0.4 % (2-4); Hematocrit 47.1 % (41-53); Hemoglobin 16.2 g/dL (13.5-17.5); Lymphocytes Absolute Auto 3700 /uL (1100-4500); Lymphocytes Percent Auto 31.3 % (25-40); Mean Corpuscular HGB Conc 34.4 % (30-36); Mean Corpuscular Hemoglobin 31.1 PG (26-34); Mean Corpuscular Volume 90.2 fL (80-100); Monocytes Absolute Auto 1000 /uL (0-900); Monocytes Percent Auto 8.4 % (3-14); Neutrophils Absolute Auto 7100 /uL (1500-7000); Neutrophils Percent Auto 58.8 % (50-75); Platelet Count 343 X10^3/uL (150-400); Red Blood Cell Count 5.22 X10^6/uL (4.5-5.9); Red Cell Distribution Width 13.5 % (11.6-14.8)
[2022-12-28 05:05] LABS: BUN Creatinine Ratio 16.8 (6-22); Blood Urea Nitrogen 16 mg/dL (9-20); Calcium 8.6 mg/dL (8.4-10.2); Carbon Dioxide 22 mmol/L (22-32); Chloride 101 mmol/L (98-107); Estimated Glomerular Filt Rate > 60 mL/min (>60); Glucose 120 mg/dL (80-110); HEMOLYSIS < 15 (0-50); Potassium 3.5 mmol/L (3.4-5.1); Sodium 136 mmol/L (137-145)
[2022-12-28] MEDS: CIPROFLOXACIN 400 MG/200 ML PIGGYBACK 200 MG IV ×2 (05:25→18:41)
[2022-12-28] MEDS: ENOXAPARIN 40 MG/0.4 ML SYRINGE SUBCUT ×2 (09:09→20:30)
[2022-12-28] MEDS: POTASSIUM CHLORIDE 20 MEQ TAB 40 MEQ PO (11:49)
--- NOTE | 2022-12-28 12:58 | P.PN_ITS ---
Subjective Subjective Interval history: 62 M admitted with recurrent diverticulitis. He is improved today with less abdominal pain, diarrhea has improved and C. diff testing was not able to be run. He tolerated his breakfast this morning as well. Exam Vital Signs (past 8 hours): - 12/28/22 08:00 12/28/22 07:00 12/28/22 08:00 Temperature 97.8 F Pulse Rate 85 Respiratory Rate 17 Blood Pressure 125/62 Pulse Oximetry 95 95 Oxygen Delivery Method Room Air Room Air Oxygen Flow Rate 0 12/28/22 12:00 Temperature 97.7 F Pulse Rate 72 Respiratory Rate 16 Blood Pressure 114/71 Pulse Oximetry 95 Oxygen Delivery Method Oxygen Flow Rate 0 Oxygen Delivery Method Room Air Oxygen Flow Rate 0 Narrative Exam Narrative: General:? Patient is well developed and well nourished, in no distress at this time. Obese with BMI 41.8 HEENT:? Normocephalic, atraumatic, extraocular muscles intact, oral pharynx is clear and mucous membranes are moist. Neck: supple and symmetric, trachea is midline, no cervical adenopathy. Chest:? Normal AP diameter and contour without kyphoscoliosis, no tachypnea, equal chest rise bilaterally. Lungs:? CTA b/l no wheezing rhonchi or rales. Cardio:?RRR no m/r/g. Abdomen: soft, non-tender, non-distended (after diluadid) Musculoskeletal:? Muscle strength and tone are equal within normal limits, no deformity. Extremities: No edema or joint effusions. No cyanosis or clubbing. Skin:? Pale,? Warm to touch,dry and intact without rashes, ulcerations or petechiae.? Neuro:? Alert and orientated x3,? sensation to touch intact in all extremities, no gross deficits noted of cranial nerves. Psych:? Patient has a well-kept appearance, appropriate affect, mental status attitude thought context and judgment are appropriate for age. Objective Labs 12/28/22 04:21 12/28/22 04:21 Labs: Laboratory Results - last 24 hr 12/27/22 12/27/22 12/27/22 16:20 16:20 16:20 WBC 14.2 H RBC 5.31 Hgb 16.8 Hct 48.3 MCV 90.9 MCH 31.6 MCHC 34.8 RDW 13.2 Plt Count 369 Neut % (Auto) 51.3 Lymph % (Auto) 35.6 [place] % (Auto) 11.7 Eos % (Auto) 0.3 L Baso % (Auto) 1.1 Neut # (Auto) 7300 H Lymph # (Auto) 5100 H [place] # (Auto) 1700 H Eos # (Auto) 0 Baso # (Auto) 200 H Sodium 135 L Potassium 3.9 Chloride 99 Carbon Dioxide 27 BUN 17 Creatinine 1.07 Estimated GFR > 60 BUN/Creatinine Ratio 15.9 Glucose 76 L Lactate 1.4 Calcium 9.4 Magnesium Total Bilirubin 0.8 AST 26 ALT 43 Alkaline Phosphatase 96 Total Protein 8.2 Albumin 4.2 Globulin 4.0 Albumin/Globulin Ratio 1.1 Lipase 125 SARS-CoV-2 (PCR) 12/27/22 12/28/22 12/28/22 16:23 04:21 04:21 WBC 12.0 H RBC 5.22 Hgb 16.2 Hct 47.1 MCV 90.2 MCH 31.1 MCHC 34.4 RDW 13.5 Plt Count 343 Neut % (Auto) 58.8 Lymph % (Auto) 31.3 [place] % (Auto) 8.4 Eos % (Auto) 0.4 L Baso % (Auto) 1.1 Neut # (Auto) 7100 H Lymph # (Auto) 3700 [place] # (Auto) 1000 H Eos # (Auto) 0 Baso # (Auto) 100 Sodium 136 L Potassium 3.5 Chloride 101 Carbon Dioxide 22 BUN 16 Creatinine 0.95 Estimated GFR > 60 BUN/Creatinine Ratio 16.8 Glucose 120 H Lactate Calcium 8.6 Magnesium 2.0 Total Bilirubin AST ALT Alkaline Phosphatase Total Protein Albumin Globulin Albumin/Globulin Ratio Lipase SARS-CoV-2 (PCR) Negative [facility] Medical History Elevated liver enzymes Encounter for removal of sutures Encounter for screening for other viral diseases Encounter for screening for respiratory tuberculosis Facet arthropathy, lumbar Herniated nucleus pulposus, L2-3 left HTN (hypertension), benign Lumbar foraminal stenosis Morbid obesity Nocturnal hypoxemia Obstructive sleep apnea of adult Primary insomnia Snoring Surgical History History of cholecystectomy History of testicular surgery Family History (Updated 12/27/22 @ 19:00 by Bao Brooks DO) Father Diabetes mellitus Cancer Mother No pertinent past surgical history Social History household members: other Smoking Status: Former smoker alcohol intake: current Assessment & Plan Assessment & Plan narrative: 1. Recurrent diverticulitis - continue cipro/flagyl IV after failure of outpatient therapy with augmentin. Has been dealing with symptoms since 11/24 according to review of outpatient records. This is his 3rd episode of diverticulitis. His first episode was approx 4 years ago. He thinks prior C- scope was a bit longer than 5 years ago but cannot recall, he thinks it was unremarkable. - general surgery consultation not necessary at this time with improvement - C. diff testing if diarrhea recurs, however normal stool this AM. - Will continue to monitor on diet, if he continues to tolerate regular diet without recurrence of abdominal pain (which has happened twice) he can discharge home possibly as soon as tomorrow. 2. HTN - hold antihypertensives for now, in setting of possible sepsis and low BP noted [facility]. 3. Obesity - BMI 42 - The patient is at much higher risk for medical and surgical complications because of his obesity. This increases the difficulty and complexity of medical and surgical interventions and increases the chances of poor outcomes such as morbidity and mortality 4. HLD - continue fenofibrate Code: Full, surrogate: Friend Thelma (see contacts) Dispo: inpatient, possible discharge home as soon as tomorrow. DVT: Lovenox daily I have utilized all available immediate resources to obtain, update, or review the patient's current medications. Discussed plan of care with patient's care team and patient today. Additional history obtained from beside staff as well. Quality VTE Deep Vein Thrombosis/Pulmonary Embolism Present on Admission: No
--- NOTE | 2022-12-28 14:09 | CM.DANOTE ---
Initial DCP Assessment Note Pt is a 62 yo male, resident of [facility], presents with abd/back pain and admitted for management of recurrent diverticulitis- IV abx, monitor diet PCP: Sunshine Saravia Payer: [facility] Reviewed chart, pt discussed in multidisciplinary rounds this morning. Anticipate discharge home tomorrow if patient continues to feel better Met w/patient, introduced role. Patient lives with 4 house mates and explains there are two in particular that could assist with shopping, meal prep transport etc if patient ever needed this. Patient denies needs from this CM team No barriers identified at this time to patient's safe discharge home w/friends to assist as needed; close outpatient f/u recommended. NAVEEN Waters Discharge Planning/Care Management CM Discharge Assessment Start: 12/28/22 14:08 Freq: Status: Active Protocol: Document 12/28/22 14:08 VALDEZ (Rec: 12/28/22 14:09 VALDEZ [id number]) Discharge Planning Assessment Assigned Veterinary Surgeon NAVEEN Gallegos DPOA/Assigned Designee Name Thelma Leyva, friend Contact Information [phone] Advance Directives? No History Provided By Patient Prior Living Arrangements House Household Members other Type of transporation used prior to Drives own vehicle admit Independent with ADL's Yes Is patient alert and oriented? Yes Barriers to Discharge No Discharge Plan Home Transportation Arrangement Friend Referrals Initiated None needed
[2022-12-28] MEDS: OXYCODONE IR 10 MG TABLET PO (15:15)
[2022-12-28] MEDS: ATORVASTATIN 20 MG TABLET 10 MG PO (20:28)
[2022-12-29] VITALS: BP 130/77; PULSE 63; RESP 18; TEMP 36.2; O2SAT 98
[2022-12-29] MEDS: OXYCODONE IR 10 MG TABLET PO (01:05)
[2022-12-29 04:00] VITALS: BP 124/73; PULSE 68; RESP 17; TEMP 37.1; O2SAT 93; O2SAT 97
[2022-12-29] MEDS: metroNIDAZOLE 500 MG/100 ML PIGGYBACK 100 MG IV ×2 (04:29→12:30)
[2022-12-29 05:11] LABS: Add Manual Diff / Slide Review NO; Basophils Absolute Auto 100 /uL (0-100); Basophils Percent Auto 0.8 % (0-2); Eosinophils Absolute Auto 100 /uL (0-450); Eosinophils Percent Auto 0.7 % (2-4); Hematocrit 43.6 % (41-53); Hemoglobin 15.1 g/dL (13.5-17.5); Lymphocytes Absolute Auto 3700 /uL (1100-4500); Lymphocytes Percent Auto 47.4 % (25-40); Mean Corpuscular HGB Conc 34.7 % (30-36); Mean Corpuscular Hemoglobin 31.3 PG (26-34); Mean Corpuscular Volume 90.3 fL (80-100); Monocytes Absolute Auto 700 /uL (0-900); Monocytes Percent Auto 9.1 % (3-14); Neutrophils Absolute Auto 3200 /uL (1500-7000); Platelet Count 313 X10^3/uL (150-400); Red Blood Cell Count 4.83 X10^6/uL (4.5-5.9); Red Cell Distribution Width 13.1 % (11.6-14.8); White Blood Cell Count 7.7 X10^3/uL (4.5-11.0)
[2022-12-29 05:14] LABS: BUN Creatinine Ratio 13.5 (6-22); Blood Urea Nitrogen 12 mg/dL (9-20); Calcium 8.4 mg/dL (8.4-10.2); Carbon Dioxide 26 mmol/L (22-32); Chloride 100 mmol/L (98-107); Estimated Glomerular Filt Rate > 60 mL/min (>60); Glucose 103 mg/dL (80-110); HEMOLYSIS < 15 (0-50); Magnesium 1.9 mg/dL (1.6-2.3); Potassium 3.9 mmol/L (3.4-5.1); Sodium 134 mmol/L (137-145)
[2022-12-29] MEDS: CIPROFLOXACIN 400 MG/200 ML PIGGYBACK 200 MG IV (06:05)
[2022-12-29 08:00] VITALS: BP 120/77; PULSE 65; RESP 17; TEMP 36.1; O2SAT 98
[2022-12-29] MEDS: FENOFIBRATE, MICRONIZED 67 MG CAPSULE PO (09:51)
[2022-12-29] MEDS: ENOXAPARIN 40 MG/0.4 ML SYRINGE SUBCUT (09:51)
--- NOTE | 2022-12-29 10:59 | PC.NURSE ---
Assessing- Patient is comfortable in his room and denies pain. Bt are postive x4 but hypoactive.
[2022-12-29] MEDS: OXYCODONE IR 5 MG TABLET PO ×2 (13:37→17:11)
--- NOTE | 2022-12-29 14:23 | PM.PN.1 ---
Exam Vital Signs (past 8 hours): - 12/29/22 08:00 12/29/22 08:00 12/29/22 12:00 Temperature 96.9 F L Pulse Rate 65 Respiratory Rate 17 Blood Pressure 120/77 Pulse Oximetry 98 Oxygen Delivery Method Room Air Room Air Oxygen Flow Rate 0 Oxygen Delivery Method Room Air Oxygen Flow Rate 0 Narrative Exam Narrative: General:? Patient is well developed and well nourished, in no distress at this time. Obese with BMI 41.8 HEENT:? Normocephalic, atraumatic, extraocular muscles intact, oral pharynx is clear and mucous membranes are moist. Neck: supple and symmetric, trachea is midline, no cervical adenopathy. Chest:? Normal AP diameter and contour without kyphoscoliosis, no tachypnea, equal chest rise bilaterally. Lungs:? CTA b/l no wheezing rhonchi or rales. Cardio:?RRR no m/r/g. Abdomen: soft, non-tender, non-distended (after diluadid) Musculoskeletal:? Muscle strength and tone are equal within normal limits, no deformity. Extremities: No edema or joint effusions. No cyanosis or clubbing. Skin:? Pale,? Warm to touch,dry and intact without rashes, ulcerations or petechiae.? Neuro:? Alert and orientated x3,? sensation to touch intact in all extremities, no gross deficits noted of cranial nerves. Psych:? Patient has a well-kept appearance, appropriate affect, mental status attitude thought context and judgment are appropriate for age. Objective Labs 12/29/22 04:32 12/29/22 04:32 Labs: Laboratory Results - last 24 hr 12/29/22 12/29/22 04:32 04:32 WBC 7.7 RBC 4.83 Hgb 15.1 Hct 43.6 MCV 90.3 MCH 31.3 MCHC 34.7 RDW 13.1 Plt Count 313 Neut % (Auto) 42.0 L Lymph % (Auto) 47.4 H [place] % (Auto) 9.1 Eos % (Auto) 0.7 L Baso % (Auto) 0.8 Neut # (Auto) 3200 Lymph # (Auto) 3700 [place] # (Auto) 700 Eos # (Auto) 100 Baso # (Auto) 100 Sodium 134 L Potassium 3.9 Chloride 100 Carbon Dioxide 26 BUN 12 Creatinine 0.89 Estimated GFR > 60 BUN/Creatinine Ratio 13.5 Glucose 103 Calcium 8.4 Magnesium 1.9 PFSH Medical History Elevated liver enzymes Encounter for removal of sutures Encounter for screening for other viral diseases Encounter for screening for respiratory tuberculosis Facet arthropathy, lumbar Herniated nucleus pulposus, L2-3 left HTN (hypertension), benign Lumbar foraminal stenosis Morbid obesity Nocturnal hypoxemia Obstructive sleep apnea of adult Primary insomnia Snoring Surgical History History of cholecystectomy History of testicular surgery Family History (Updated 12/27/22 @ 19:00 by Bao Brooks DO) Father Diabetes mellitus Cancer Mother No pertinent past surgical history Social History household members: other Smoking Status: Former smoker alcohol intake: current Assessment & Plan Assessment & Plan narrative: 1. Recurrent diverticulitis - continue cipro/flagyl IV after failure of outpatient therapy with augmentin. Has been dealing with symptoms since 11/24 according to review of outpatient records. This is his 3rd episode of diverticulitis. His first episode was approx 4 years ago. He thinks prior C- scope was a bit longer than 5 years ago but cannot recall, he thinks it was unremarkable. - general surgery consultation not necessary at this time with improvement, but may warrant future outpatient referral if continues to have episodes - C. diff testing if diarrhea recurs, however normal stool this AM. - Will continue to monitor on diet, if he continues to tolerate regular diet without recurrence of abdominal pain (which has happened twice) he can discharge home possibly as soon as tomorrow. 2. HTN - hold antihypertensives for now, in setting of possible sepsis and low BP noted at [facility]. 3. Obesity - BMI 42 - The patient is at much higher risk for medical and surgical complications because of his obesity. This increases the difficulty and complexity of medical and surgical interventions and increases the chances of poor outcomes such as morbidity and mortality 4. HLD - continue fenofibrate Code: Full, surrogate: Friend Thelma (see contacts) DVT: Lovenox daily Dispo: Home on 12/30. Quality VTE Deep Vein Thrombosis/Pulmonary Embolism Present on Admission: No
[2022-12-29 15:00] VITALS: BP 122/70; PULSE 66; RESP 19; TEMP 36.1; O2SAT 97
== END 2022-12-29 17:15 | disposition home or self-care (01) ==
LOC: ED 17:56 → AC 18:11
PROVIDERS: Admitting Provider Internal Medicine; Emergency Provider Emergency Medicine; Family Provider Family Medicine; PCP Family Medicine; Referring Provider Emergency Medicine; Visit Provider Internal Medicine
DX: K57.92 Diverticulitis of intestine, part unspecified, without perforation or abscess without bleeding (principal); E66.9 Obesity, unspecified; Z68.41 Body mass index [BMI] 40.0-44.9, adult; I10 Essential (primary) hypertension; Z20.822 Contact with and (suspected) exposure to COVID-19; G47.33 Obstructive sleep apnea (adult) (pediatric); M54.50 Low back pain, unspecified
CPT/HCPCS: 36415; 74177; 80048; 80053; 83605; 83690; 83735; 85025; 87040; 87635; 93005; 96365; 96366; 96367; 96372; 96375; 96376; 99283; 99284; C9803; G0378; J0744; J1170; J1650; J2405; Q9967

== ENCOUNTER → 2023-01-16 11:35 | Outpatient (CLI) | payer MEDICARE, MEDICAID, SELFPAY ==
[2022-12-27 19:16] VITALS: BMI 41.8
--- NOTE | 2023-01-16 11:35 | DI.MRI.S_ITS ---
PROCEDURE: MR LUMBAR SPINE WO CON INDICATIONS: worsening pain, severe, interferring with ADLs, foot drop TECHNIQUE: Noncontrast sagittal T1 spin echo and T2 fast echo, sagittal STIR, and T2 fast spin echo through the lumbar spine. In cases with scoliosis, additional coronal T2 fast spin echo may be performed. COMPARISON: [facility], MR, MR LUMBAR SPINE WO CON, 10/16/2021, 10:14. FINDINGS: Image quality: Excellent. Alignment and Curvature: There is normal bony alignment. Bone Marrow: Marrow is of normal overall signal. No acute vertebral body compression fractures. Spinal Cord: Conus medullaris terminates at the L1 level. Visualized cord demonstrates normal signal and size. Paraspinous Soft Tissues: No paravertebral masses. T12-L1: Mild disc desiccation and height loss. No canal stenosis. No foraminal stenosis. L1-L2: Severe disc desiccation and height loss. Broad-based disc bulge. Mild facet ligamentum flavum hypertrophy. No canal stenosis. Mild bilateral neural foraminal stenosis. Findings are unchanged from the study dated October 16, 2021. L2-L3: Moderate disc desiccation and height loss. There is a left paracentral 1.1 x 1.0 x 2.3 cm disc protrusion or disc extrusion which is increased in size when compared with the study dated October 16, 2021. There is narrowing of the left lateral recess. Mild canal stenosis. Unchanged bilateral mild foraminal stenosis. L3-L4: Moderate disc desiccation and height loss. Moderate facet ligamentum flavum hypertrophy. No canal stenosis. Moderate bilateral foraminal stenosis. Findings are unchanged. L4-L5: Mild disc desiccation and height loss. Broad-based disc bulge. Moderate facet ligamentum flavum hypertrophy. No canal stenosis. Mild bilateral foraminal stenosis. Findings are unchanged. L5-S1: Severe disc desiccation and height loss. Broad-based disc bulge. No canal stenosis. No foraminal stenosis. Findings are unchanged. IMPRESSION: 1. Increased size of a left paracentral L2-3 disc protrusion or extrusion when compared with the CT dated October 16, 2021. There is resultant narrowing of the left lateral recess and mild canal stenosis. 3. Otherwise unchanged disc desiccation height loss throughout the lumbar spine and mild to moderate foraminal stenosis. Dictated by: Alexandrea Lopez M.D. on 01/16/2023 at 13:44 Approved by: Alexandrea Lopez M.D. on 01/16/2023 at 13:50
== END ==
PROVIDERS: Family Provider Family Medicine; PCP Family Medicine; Referring Provider Family Medicine; Visit Provider Family Medicine
DX: M51.17 Intervertebral disc disorders with radiculopathy, lumbosacral region (principal); M48.061 Spinal stenosis, lumbar region without neurogenic claudication; M51.16 Intervertebral disc disorders with radiculopathy, lumbar region; M47.26 Other spondylosis with radiculopathy, lumbar region; M21.372 Foot drop, left foot; G89.29 Other chronic pain
CPT/HCPCS: 72148; 99214

== ENCOUNTER 2023-01-25 09:31 | Outpatient (CLI) | payer MEDICARE, MEDICAID, SELFPAY ==
[2022-12-27 19:16] VITALS: BMI 41.8
[2023-01-25] VITALS (8 sets, daily range): BP systolic 171–186; BP diastolic 94–112; PULSE 71–78; RESP 12–20; TEMP 36.5; O2SAT 95–99
--- NOTE | 2023-01-25 09:33 | DI.RAD.S_ITS ---
PROCEDURE: PAIN L/S TRANSFORAMINAL INJECT INDICATIONS: SPONDYLOSIS COMPARISON: [facility], , PAIN L/S TRANSFORAMINAL INJECT, 02/01/2022, 16:05. FINDINGS: Fluoroscopic spot filming was performed to verify placement of spinal needles at the L2-L3, L3-L4 level(s), as labeled on the films. Appropriate location(s) of the needle tip(s) was confirmed by injection of iodinated contrast. IMPRESSION: Intraprocedural fluoroscopy was provided for guidance and anatomical localization. Please see the procedure report for further details. Dictated by: Davonte Acevedo M.D. on 01/25/2023 at 10:55 Approved by: Davonte Acevedo M.D. on 01/25/2023 at 10:56
[2023-01-25] MEDS: IOPAMIDOL 15 ML VIAL 3 ML INJ (10:12)
[2023-01-25] MEDS: DEXAMETHASONE 10 MG/ML VIAL 20 MG INJ (10:12)
--- NOTE | 2023-01-25 13:17 | P.PCN_ITS ---
Date/Time/Diagnoses Date of procedure: 01/25/23 Time of procedure: 10:00 Procedure Notes Physician: Ruben Mendoza Total Fluoroscopy time (seconds): 42 Total sedation minutes: 0 Procedure in detail & Post-procedure care: Left L3-4 Transforaminal Epidural Steroid Injection Indications: Jerry is presenting for treatment of lumbar radiculopathy with low back and leg pain. Preoperative diagnosis: Left lumbar radiculopathy Postoperative diagnosis: Same Focused Examination: Ax3 Mood and affect are normal Vital Signs: VSS Consent: Following review of allergies and potential side effects/complications, including, but not necessarily limited to, infection, allergic reaction, local tissue breakdown, stroke, temporary or permanent nerve injury, paralysis, and possible , the patient indicated that they understood and agreed to pr oceed.? An informed consent document was signed by the patient, witnessed by a nurse and placed in the patient's chart.? Additionally, other treatment options including medications and physical therapy were reviewed with the patient. All questions were answered. Site was then marked. Anesthesia: Local Position: Prone Monitoring: NIBP, Pulse oximetry, 3 lead EKG Needle used: 22G 5 inch spinal needle Contrast: Isovue 300M Injectate: 10 mg Dexamethasone mixed with 1% lidocaine 1 ml and Normal Saline 1 ml per site Technique: The skin was prepped with chloraprep and draped in a sterile fashion. Time out was performed as per protocol. Oxygen applied via NC. Skin and subcutaneous structures of the needle entry site were infiltrated with 3mL of lidocaine 1%. Under fluoroscopic guidance, using an ipsilateral oblique view,?a 22 gauge 5 inch needle was advanced to the base of the L3?pedicle.? The needle was advanced to the superio-posterior aspect of the neural foramen under lateral view.? Oblique and AP views were rechecked. No paresthesias noted by the patient during needle placement. In AP view and utilizing real-time digital subtraction fluoroscopy, 2 ml contrast was slowly injected. Epidural spread was observed without evidence for intravascular nor intrathecal uptake. Contrast spread was seen craniocaudally. The above injectate was then administered, and the needle was subsequently withdrawn. Band-Aids applied to injection sites. The same procedure was carried out for the left L2-3 level. Jerry complained of paresthesias with injection of contrast. Despite multiple attempts at repositioning, he continued to have paresthesias. Injection at this level was aborted. EBL: less than 1 ml Complications: None Post Procedure: Patient was taken to the recovery and monitored. The patient was provided a Pain Log to continue to record the patient's response to the target- specific procedure prior to the patient's follow-up visit with the referring physician. Patient was stable upon discharge. Detailed post procedure instructions were provided. Patient was asked to call in the event of worsening pain, fever, weakness, numbness or bladder or bowel incontinence.
== END 2023-01-25 10:38 | disposition home or self-care (01) ==
LOC: RAD 09:32
PROVIDERS: Family Provider Family Medicine; PCP Family Medicine; Referring Provider Anesthesiology; Visit Provider Anesthesiology
DX: M54.16 Radiculopathy, lumbar region (principal)
CPT/HCPCS: 64483; J1100

== ENCOUNTER 2023-02-09 09:52 | Day surgery (SDC) | payer MEDICARE, MEDICAID, SELFPAY ==
[2022-12-27 19:16] VITALS: BMI 41.8
[2023-02-09 10:20] VITALS: BP 141/99; PULSE 91; RESP 18; TEMP 37.3; O2SAT 95; BMI 41.5
[2023-02-09] MEDS: LACTATED RINGERS 1,000 ML 42 ML IV (10:37)
--- NOTE | 2023-02-09 12:05 | PM.HP.1 ---
History of Present Illness History of Present Illness Date Patient Seen: 02/09/23 Time Patient Seen: 12:06 Chief complaint: Colonoscopy Narrative: Jerry is a 62-year-old man who was recently diagnosed with diverticulitis. His symptoms have improved but still feels what he describes as a rock in his lower abdomen. [facility] Medical History Elevated liver enzymes Encounter for removal of sutures Encounter for screening for other viral diseases Encounter for screening for respiratory tuberculosis Facet arthropathy, lumbar Herniated nucleus pulposus, L2-3 left HTN (hypertension), benign Lumbar foraminal stenosis Morbid obesity Nocturnal hypoxemia Obstructive sleep apnea of adult Primary insomnia Snoring Surgical History History of cholecystectomy History of testicular surgery Family History Father Diabetes mellitus Cancer Mother No pertinent past surgical history Social History household members: friend(s) Smoking Status: Former smoker alcohol intake: current Meds Home Medications and Allergies Home Medications Medication Instructions Recorded Confirmed Type celecoxib 200 mg capsule (Celebrex) 200 mg PO DAILY #90 caps 01/10/22 02/09/23 Rx omeprazole 20 mg capsule,delayed See Rx Instructions .Route 08/22/22 02/09/23 Rx release .COMPLEX #90 caps fenofibrate nanocrystallized 48 mg See Rx Instructions .Route 10/20/22 02/09/23 Rx tablet .COMPLEX #30 tabs spironolactone 25 mg tablet 25 mg PO QAM #30 tabs 10/21/22 02/09/23 Rx atorvastatin 10 mg tablet See Rx Instructions .Route 10/24/22 02/09/23 Rx .COMPLEX #100 tabs cyclobenzaprine 10 mg tablet 10 mg PO TID PRN muscle spasm #21 12/26/22 02/09/23 Rx tabs gabapentin 100 mg capsule 100 mg PO TID #90 caps 01/06/23 02/09/23 Rx gabapentin 800 mg tablet 800 mg PO TID PRN pain #90 tabs 01/24/23 02/09/23 Rx Allergies Allergy/AdvReac Type Severity Reaction Status Date / Time tree and shrub pollen Allergy Mild Verified 02/09/23 10:11 duloxetine [From Cymbalta] Allergy Unknown Verified 02/09/23 10:11 hydrochlorothiazide Allergy Unknown Verified 02/09/23 10:11 Exam Vital Signs (past 8 hours): - 02/09/23 10:20 Temperature 99.2 F Pulse Rate 91 H Respiratory Rate 18 Blood Pressure 141/99 H Pulse Oximetry 95 Oxygen Delivery Method Room Air Oxygen Delivery Method Room Air Const General: No acute distress Assessment & Plan Assessment and plan (1) Diverticulitis: Status: Acute Plan Proceed with colonoscopy
[2023-02-09 12:43] VITALS: BP 119/84; PULSE 84; RESP 12; TEMP 36.2; O2SAT 96
--- NOTE | 2023-02-09 12:43 | PM.OP.COLON ---
Operative Date/Time/Diagnoses Date of procedure: 02/09/23 Time of procedure: 12:43 Pre-op diagnosis: Diverticulitis Post-op diagnosis: same Procedure & Clinicians Study performed: Colonoscopy Same procedure as scheduled: Yes Surgeon: Jered Gill Procedure Notes Procedure in detail: Surgeon: Jered Gill MD Anesthesia: Regan Clay MD Procedure: The patient was brought to the endoscopy suite, placed in left lateral decubitus position. The patient was connected to monitoring devices. A time-out was performed. Sedation was administered. Once the patient was adequately sedated, a digital rectal exam was performed and was normal. The scope was then inserted and advanced to the cecum where the appendiceal orifice was identified and photographed. The scope was then slowly withdrawn over greater than 6 minutes. The mucosa was thoroughly inspected. No polyps were seen. There was a segment of sigmoid colon where the mucosa was quite inflamed and boggy and the lumen was quite narrowed suggestive of a chronic diverticular stricture. The scope was retroflexed in the rectum. No other abnormalities were seen. The scope was straightened and removed. The patient was awakened and brought to recovery. Scope withdrawal time: 12 minutes Sedation time: 19 minutes EBL: 0 Findings: Chronic diverticular stricture Post-procedure Disposition: PACU
[2023-02-09 12:48] VITALS: BP 131/87; PULSE 85; RESP 14; O2SAT 97
[2023-02-09 12:54] VITALS: BP 134/79; PULSE 80; RESP 18; O2SAT 95
[2023-02-09 12:58] VITALS: BP 143/103; PULSE 80; RESP 16; O2SAT 98
== END 2023-02-09 13:08 | disposition home or self-care (01) ==
PROVIDERS: Family Provider Family Medicine; PCP Family Medicine; Referring Provider Surgery; Visit Provider Surgery
PROC: 0DJD8ZZ Inspection of Lower Intestinal Tract, Via Natural or Artificial Opening Endoscopic (ICD-10-PCS; CPT 45378; principal; 2023-02-09 10:45)
DX: K56.699 Other intestinal obstruction unspecified as to partial versus complete obstruction (principal); K57.30 Diverticulosis of large intestine without perforation or abscess without bleeding
CPT/HCPCS: 45378; J2704; J3010

== ENCOUNTER 2023-04-23 10:32 | Inpatient (IN) | payer MEDICARE, MEDICAID, SELFPAY ==
[2022-12-27 19:16] VITALS: BMI 41.8
--- NOTE | 2023-04-23 | DI.RAD.S_ITS ---
PROCEDURE: XR ABDOMEN MIN 2V INDICATIONS: abdominal pain. TECHNIQUE: 2 views of the abdomen were acquired. COMPARISON: None. FINDINGS: Surgical changes and devices: Cholecystectomy clips. Bowel: No pneumoperitoneum. The bowel gas pattern is normal. Soft tissues: No masses; visualized solid organ contours appear normal in size. No suspicious abdominal calcifications. Bones: No suspicious bony abnormalities. IMPRESSION: No acute process. Dictated by: Venita Kam M.D. on 04/23/2023 at 15:02 Approved by: Venita Kam M.D. on 04/23/2023 at 15:02
[2023-04-23 14:05] VITALS: BP 139/92; PULSE 92; RESP 18; TEMP 35.6; O2SAT 93
[2023-04-23 14:21] VITALS: BMI 41.3
[2023-04-23] MEDS: SODIUM CHLORIDE 0.9% 1,000 ML 100 ML IV (14:41)
--- NOTE | 2023-04-23 14:43 | PM.HP.1 ---
History of Present Illness History of Present Illness Date Patient Seen: 04/23/23 Time Patient Seen: 17:04 Chief complaint: acute abdominal pain, diverticulitis Narrative: 62-year-old male known to Dr. Gill and is scheduled for a lap assisted sigmoidectomy for diverticular stricture on Monday of this week. He called today from [facility] with increasing, pretty severe abdominal pain. he states that he has been on antibiotics for the last 3 weeks because of diverticulitis and he has been having pain since a few days ago that reminded him of the same pain he was having before he was treated for diverticulitis. Dr. Gill did a colonoscopy recently and has booked him for a sigmoid resection. Describes the pain as gradually worsening over the last few days and in the last day or so it was very severe. He started to have a decrease in the amount of bowel movements that he was having in the last day or so. He has experienced subjective fevers and chills he has had some new urinary symptoms for the last 4-5 days as well he is complaining of frequent urination with a decreased amount of urine. The stream is less and decreased as well and he is complaining of suprapubic bladder pain that seems to be moving lower and lower down his bladder and for this reason her surmise is that he may have a kidney stone but he is never had a kidney stone before. He is passing gas it with his urine or any foul or smell or change in color of the urine. Currently he is hungry and he is supposed to start a clear liquid diet to prepare for his surgery on Monday. Tomorrow he will be starting his bowel prep and antibiotic oral preparation. previous abdominal surgery includes a pyloric stenosis as a child and laparoscopic cholecystectomy. He otherwise has high blood pressure hypercholesterolemia some chronic pain that he takes Celebrex for, peripheral edema that he takes a diuretic for; he does not have diabetes. [facility] Medical History (Updated 04/20/23 @ 14:31 by Sunshine Saravia MD) DDD (degenerative disc disease) Elevated liver enzymes Encounter for removal of sutures Encounter for screening for other viral diseases Encounter for screening for respiratory tuberculosis Facet arthropathy, lumbar Herniated nucleus pulposus, L2-3 left History of COVID-19 (10/2022) HTN (hypertension), benign Lumbar foraminal stenosis Lumbar radiculopathy Morbid obesity Nocturnal hypoxemia Obstructive sleep apnea of adult Primary insomnia Snoring TIA (transient ischemic attack) (~2008) Surgical History (Updated 04/17/23 @ 09:19 by Iman Vora RN) History of cardiac cath (~2017) History of cholecystectomy History of testicular surgery Hx of abdominal surgery Hx of colonoscopy (02/09/23) Family History Father Diabetes mellitus Cancer Mother No pertinent past surgical history Social History household members: friend(s) Smoking Status: Former smoker alcohol intake: current Meds Home Medications and Allergies Home Medications Medication Instructions Recorded Confirmed Type cyclobenzaprine 10 mg tablet 10 mg PO TID PRN muscle spasm #21 12/26/22 04/23/23 Rx tabs amlodipine 2.5 mg tablet 2.5 mg PO DAILY #30 tabs 04/07/23 04/23/23 Rx ciprofloxacin HCl 500 mg tablet 500 mg PO BID #34 tabs 04/07/23 04/23/23 Rx (Cipro) metronidazole 500 mg tablet 500 mg PO TID #52 tabs 04/07/23 04/23/23 Rx neomycin 500 mg tablet 1 g PO TID 3 doses #6 tabs 04/11/23 04/23/23 Rx gabapentin 800 mg tablet 400 mg PO QAM 04/18/23 04/23/23 History spironolactone 25 mg tablet 25 mg PO QAM #30 tabs 04/21/23 04/23/23 Rx atorvastatin 10 mg tablet 10 mg PO QPM 04/23/23 04/23/23 History fenofibrate nanocrystallized 48 mg 48 mg PO QAM 04/23/23 04/23/23 History tablet omeprazole 20 mg capsule,delayed 20 mg PO QAM 04/23/23 04/23/23 History release Allergies Allergy/AdvReac Type Severity Reaction Status Date / Time tree and shrub pollen Allergy Mild Verified 04/20/23 13:02 duloxetine [From Cymbalta] AdvReac Unknown Disoriented Verified 04/20/23 13:02 hydrochlorothiazide AdvReac Unknown Patient Verified 04/20/23 13:02 unsure, possibly affected gallbladder Exam Vital Signs (past 8 hours): - 04/23/23 14:05 Temperature 96.1 F L Pulse Rate 92 H Respiratory Rate 18 Blood Pressure 139/92 H Pulse Oximetry 93 Oxygen Flow Rate 0 Oxygen Flow Rate 0 Const General: cooperative, healthy appearing, comfortable and No acute distress Nutritional Appearance: obese ( BMI 41) Orientation: alert, awake and oriented x3 HENMT Head: normal to inspection Mouth: moist mucous membranes Eyes General: appearance normal, both eyes and all related structures Resp Effort & Inspection: normal respiratory effort and able to speak in complete sentences Cardio Pulses: radial pulses present GI Palpation: soft and tender ( left lower quadrant tenderness) Other: there is a right upper quadrant incision and some laparoscopic cholecystectomy port site incisions. No hernia is appreciated Objective Labs 04/23/23 15:12 04/23/23 15:12 Assessment & Plan Assessment and plan (1) Hypertension: Qualifiers: Hypertension type: primary hypertension Qualified Code(s): I10 - Essential (primary) hypertension Status: Acute (2) Peripheral edema: Status: Acute (3) Hypertriglyceridemia: Status: Acute (4) Diverticulitis: Status: Acute Assessment & Plan narrative: direct admit from [facility] in preparation for sigmoid resection with increased abdominal pain that I think should be worked up with a CT scan. Currently I have switched his antibiotics to IV Zosyn under the presumption that perhaps this is diverticulitis type of picture. The other differential would be colonic strictures causing partial colonic obstruction and distention abdominal pain associated. Plain films were ordered and personally reviewed and interpreted by me they are pretty unremarkable, though obscured due to body habitus. is abdominal exam is benign and otherwise he is hemodynamically stable with some mild leukocytosis hyponatremia hyperglycemia but otherwise not terribly concerning laboratory values. Therefore I will start him on a clear liquid diet and on Monday tomorrow he will be seen by Dr. Gill and be placed on the pre colon surgery prep and oral antibiotics which are preferred. now he can continue most of his home meds. IV pain medicine as needed for pain control. DVT prophylaxis: dosing for obesity. Activity as tolerated encouraged to ambulate. Will decrease IV fluid rate when he starts to drink.
[2023-04-23] MEDS: ACETAMINOPHEN 325 MG TABLET 975 MG PO (14:45)
[2023-04-23 15:27] LABS: Add Manual Diff / Slide Review NO; Basophils Absolute Auto 100 /uL (0-100); Basophils Percent Auto 0.7 % (0-2); Eosinophils Absolute Auto 0 /uL (0-450); Eosinophils Percent Auto 0.2 % (2-4); Hematocrit 44.9 % (41-53); Hemoglobin 15.4 g/dL (13.5-17.5); Lymphocytes Absolute Auto 3200 /uL (1100-4500); Lymphocytes Percent Auto 23.1 % (25-40); Mean Corpuscular HGB Conc 34.2 % (30-36); Mean Corpuscular Hemoglobin 30.9 PG (26-34); Mean Corpuscular Volume 90.3 fL (80-100); Monocytes Absolute Auto 1400 /uL (0-900); Monocytes Percent Auto 10.4 % (3-14); Neutrophils Absolute Auto 9100 /uL (1500-7000); Neutrophils Percent Auto 65.6 % (50-75); Platelet Count 315 X10^3/uL (150-400); Red Blood Cell Count 4.97 X10^6/uL (4.5-5.9); Red Cell Distribution Width 13.9 % (11.6-14.8); White Blood Cell Count 13.8 X10^3/uL (4.5-11.0)
[2023-04-23 15:30] LABS: BUN Creatinine Ratio 13.8 (6-22); Blood Urea Nitrogen 13 mg/dL (9-20); Calcium 8.8 mg/dL (8.4-10.2); Carbon Dioxide 22 mmol/L (22-32); Chloride 101 mmol/L (98-107); Estimated Glomerular Filt Rate > 60 mL/min (>60); Glucose 118 mg/dL (80-110); HEMOLYSIS < 15 (0-50); Potassium 4.2 mmol/L (3.4-5.1); Sodium 132 mmol/L (137-145)
--- NOTE | 2023-04-23 17:00 | DI.CT.S_ITS ---
PROCEDURE: CT ABDOMEN PELVIS W CON INDICATIONS: abdominal pain and distension. TECHNIQUE: After the administration of oral and IV contrast, axial sections were acquired from the lung bases to the pubic symphysis. Coronal and sagittal reformats were performed. For radiation dose reduction, the following was used: automated exposure control, adjustment of mA and/or kV according to patient size. COMPARISON: [facility], CT, CT ABDOMEN PELVIS W CON, 12/27/2022, 16:50. [facility], CR, XR ABDOMEN MIN 2V, 04/23/2023, 14:42. [facility], CT, CT ABDOMEN PELVIS W CON, 12/02/2022, 10:25. [facility], MR, MR LUMBAR SPINE WO CON, 01/16/2023, 11:45. FINDINGS: Image quality: Excellent. Lung bases: Unremarkable. Heart: No significant findings. ABDOMEN: Liver: Diffuse fatty liver infiltration is noted. Gallbladder: Removed. Biliary ducts: Unremarkable. Pancreas: Unremarkable. Spleen: Unremarkable. Adrenal Glands: Unremarkable. Kidneys and Ureters: Unremarkable. Stomach and Bowel: There is moderate wall thickening seen within the sigmoid colon, with moderate surrounding inflammatory change. The more proximal colon is unremarkable. No dilated loops of small bowel are seen. A normal appendix is noted. No significant gastric abnormality is seen. Peritoneum: No jean claude peritoneal abscess can be seen. No abnormal intraperitoneal fluid. No free air. Ventral Wall: No hernia. Abdominal Nodes: No retroperitoneal or mesenteric adenopathy by size criteria. Vessels: Aorta and inferior vena cava are normal in size. Atherosclerotic calcification is noted. PELVIS: Pelvic Organs: Unremarkable. Bladder: Unremarkable. Pelvic Nodes: No enlarged lymph nodes. Miscellaneous: No inguinal hernias are seen. Bones: Remote, healed right lateral rib fractures are seen. Focal L5-S1 degenerative change can be seen. Milder degenerative changes are seen elsewhere. IMPRESSION: Moderate to prominent diverticulitis. These findings appear minimally worse than on the episode dated 12/27/2022. No jean claude findings of perforation or abscess can be seen. When clinically appropriate (following adequate treatment of the patient's current clinical episode) a colonoscopy is recommended for further evaluation for a potential underlying mass (if not already recently done). Additional findings: Remote, healed right lateral rib fractures Fatty liver infiltration Cholecystectomy Focal L5-S1 degenerative change Dictated by: Owen Love M.D. on 04/23/2023 at 17:50 Approved by: Owen Love M.D. on 04/23/2023 at 17:53
[2023-04-23] MEDS: PIPERACILLIN/TAZO 4.5 GM in SODIUM CHLORIDE 0.9% 100 ML IV (18:39)
[2023-04-23] MEDS: KETOROLAC 30 MG/ML VIAL 15 MG IV ×2 (18:41→23:32)
[2023-04-23 19:30] VITALS: BP 140/89; PULSE 68; RESP 18; TEMP 35.9; O2SAT 94
[2023-04-23 19:47] VITALS: O2SAT 94
[2023-04-23] MEDS: ATORVASTATIN 20 MG TABLET 10 MG PO (20:59)
[2023-04-24] MEDS: PIPERACILLIN/TAZO 4.5 GM in SODIUM CHLORIDE 0.9% 100 ML IV ×2 (01:17→09:09)
[2023-04-24] MEDS: SODIUM CHLORIDE 0.9% 1,000 ML 100 ML IV ×3 (01:34→21:45)
[2023-04-24] MEDS: PANTOPRAZOLE DR 20 MG TABLET PO (05:17)
[2023-04-24] MEDS: KETOROLAC 30 MG/ML VIAL 15 MG IV ×4 (05:17→22:18)
[2023-04-24 07:00] VITALS: BP 126/80; PULSE 69; RESP 16; TEMP 36.3; O2SAT 97
[2023-04-24] MEDS: FENOFIBRATE, MICRONIZED 67 MG CAPSULE PO (08:07)
[2023-04-24] MEDS: SPIRONOLACTONE 25 MG TABLET PO (08:07)
[2023-04-24] MEDS: AMLODIPINE 5 MG TABLET 2.5 MG PO (08:07)
[2023-04-24] MEDS: GABAPENTIN 400 MG CAPSULE PO (08:08)
[2023-04-24 08:13] VITALS: O2SAT 97
--- NOTE | 2023-04-24 09:17 | CM.DANOTE ---
Patient is a 62 yo male who was admitted on 04/23/23 for abd/back pain and admitted for management of recurrent diverticulitis- IV abx, NPO. PCP: Sunshine Saravia Payer: [facility] Per Surgeon, pt had recent colonoscopy and recommendation was sigmoid resection which was scheduled for tomorrow 04/25/23 and was on home oral abx and prep but failed outpt prep and now admitted for medical tx and surgery tomorrow 04/25 still. SW met bedside with pt and explained role and he confirms he still lives on [address] with 4 house mates and explains there are two in particular that could assist with shopping, meal prep transport etc if patient ever needed this. Patient denies needs from this CM team pending progress post surg. Pt confirms that his roommates can still assist him at d/c and plan to provide transport home when medically stable. Pt does not use DME for ambulation at baseline and is active and independent with ADLs. No barriers identified at this time to patient's safe discharge home w/friends to assist as needed; close outpatient f/u recommended. Plan: SW to follow after surgical intervention tomorrow and pt likely here a few days before safe d/c home with roommates support. SW to follow closely for any further identified discharge planning needs. NAVEEN Tomas Discharge Planning/Care Management CM Discharge Assessment Start: 04/24/23 09:14 Freq: Status: Active Protocol: Document 04/24/23 09:14 BF (Rec: 04/24/23 09:16 BF [id number]) Discharge Planning Assessment Assigned Garment Manufacturer NAVEEN White DPOA/Assigned Designee Name none Advance Directives? No Advance Directives on File No History Provided By Patient,Medical Record Has Patient been admitted in last 30 No days? Comment last admission in December 2022 this year and discharged home Prior Living Arrangements House Household Members friend(s) Comment Pt has 3-4 rommates Type of transporation used prior to Drives own vehicle admit Independent with ADL's Yes Is patient alert and oriented? Yes Caregiver for Another No Barriers to Discharge No Comment Pending progress after surgery Discharge Plan Home Transportation Arrangement Friend Referrals Initiated None needed Additional Comment Pending progress post surg Whiteboard Updated in Patient Room with Yes name and ext. # of Garment Manufacturer Review Status In Process Please Provide Date Initial DC 04/24/23 Assessment Was Performed Next Review Type Continued Stay Review
--- NOTE | 2023-04-24 11:57 | PC.NURSE ---
meds sent to pharmacy. Called providers office and left a message to assistant director of nursing regarding putting the orders for his prep (flagyl, neomycin, subtap).
--- NOTE | 2023-04-24 12:19 | P.PN_ITS ---
Subjective Subjective Date Patient Seen: 04/24/23 Time Patient Seen: 12:20 Interval history: Don feels somewhat better today after having been on IV antibiotics. Exam Vital Signs (past 8 hours): - 04/24/23 07:00 04/24/23 08:13 Temperature 97.3 F L Pulse Rate 69 Respiratory Rate 16 Blood Pressure 126/80 Pulse Oximetry 97 97 Oxygen Delivery Method Room Air Oxygen Flow Rate 0 Oxygen Delivery Method Room Air Oxygen Flow Rate 0 Narrative Exam Narrative: Abdomen soft, distended No peritoneal findings Objective Labs 04/23/23 15:12 04/23/23 15:12 Labs: Laboratory Results - last 24 hr 04/23/23 04/23/23 15:12 15:12 WBC 13.8 H RBC 4.97 Hgb 15.4 Hct 44.9 MCV 90.3 MCH 30.9 MCHC 34.2 RDW 13.9 Plt Count 315 Neut % (Auto) 65.6 Lymph % (Auto) 23.1 L [place] % (Auto) 10.4 Eos % (Auto) 0.2 L Baso % (Auto) 0.7 Neut # (Auto) 9100 H Lymph # (Auto) 3200 [place] # (Auto) 1400 H Eos # (Auto) 0 Baso # (Auto) 100 Sodium 132 L Potassium 4.2 Chloride 101 Carbon Dioxide 22 BUN 13 Creatinine 0.94 Estimated GFR > 60 BUN/Creatinine Ratio 13.8 Glucose 118 H Calcium 8.8 PFSH Medical History (Updated 04/20/23 @ 14:31 by Sunshine Saravia MD) DDD (degenerative disc disease) Elevated liver enzymes Encounter for removal of sutures Encounter for screening for other viral diseases Encounter for screening for respiratory tuberculosis Facet arthropathy, lumbar Herniated nucleus pulposus, L2-3 left History of COVID-19 (10/2022) HTN (hypertension), benign Lumbar foraminal stenosis Lumbar radiculopathy Morbid obesity Nocturnal hypoxemia Obstructive sleep apnea of adult Primary insomnia Snoring TIA (transient ischemic attack) (~2008) Surgical History (Updated 04/17/23 @ 09:19 by Iman Vora RN) History of cardiac cath (~2017) History of cholecystectomy History of testicular surgery Hx of abdominal surgery Hx of colonoscopy (02/09/23) Family History Father Diabetes mellitus Cancer Mother No pertinent past surgical history Social History household members: friend(s) Smoking Status: Former smoker alcohol intake: current Assessment & Plan Assessment and plan (1) Diverticulitis: Status: Acute Plan We will continue to plan for sigmoid colectomy tomorrow. I explained to done that given that his diverticulitis seems to be more acute he may end up with either an end colostomy or diverting loop ileostomy. We will start his prep and oral antibiotics here.
[2023-04-24] MEDS: [UNRECOGNIZED DRUG - OTHER] 12 EACH PO ×2 (12:54→20:11)
[2023-04-24] MEDS: NEOMYCIN 500MG TABLET 2 EACH PO ×3 (13:16→22:18)
[2023-04-24] MEDS: metroNIDAZOLE 500 MG TABLET PO ×2 (15:51→20:10)
[2023-04-24] MEDS: PIPERACILLIN/TAZO 3.375 GM in SODIUM CHLORIDE 0.9% 100 ML IV (17:22)
[2023-04-24 19:35] VITALS: BP 139/84; PULSE 65; RESP 18; TEMP 36.4; O2SAT 97
[2023-04-24] MEDS: ATORVASTATIN 20 MG TABLET 10 MG PO (20:10)
[2023-04-24] MEDS: ONDANSETRON 4 MG/2 ML INJ IV (21:06)
[2023-04-25] VITALS (22 sets, daily range): BP systolic 114–153; BP diastolic 67–92; PULSE 66–78; RESP 10–18; TEMP 35.5–37; O2SAT 90–99; BMI 41.3
--- NOTE | 2023-04-25 | PATH_ITS ---
[facility] Accession Number: [id number] No. of containers..01 Tissue . 01 Material submitted: . sigmoid colon - SIGMOID COLON . 01 Diagnosis: Sigmoid Colon, Segmental Resection: Diverticulosis. Pericolorectal abscess with chronic, active inflammation and features of regeneration/repair extending to serosa. Multiple reactive lymph nodes. Negative for active, chronic and microscopic colitis. Negative for granulomas, dysplasia and malignancy. [facility] 05/05/2023 1302 Local . 01 Electronically signed: . Sunshine Mcgregor MD, Pathologist NPI- [id number] . 01 Gross description: . The specimen is received in formalin labeled with the patient's name, , and sigmoid colon consists of a single segment of large bowel measuring 11.3 cm in length and up to 4.3 cm in greatest external diameter. The serosal surface is pink-ramos and ragged with diffuse areas of gee fibrinous exudate and serosal adhesions noted. An abundant amount of attached pericolonic fat is noted. The serosal surface is inked black. Each margin is stapled. The bowel is opened to reveal an area of stricture measuring 2.5 cm in length, 4.5 cm from the closest surgical edge. The mucosal surface shows the usual ramos plicated folds with a definitive lesion or other abnormalities not seen. Multiple brown fecaliths are noted measuring up to 0.4 cm in greatest dimension. The bowel wall measures up to 1.1 cm in thickness. The tissue is sectioned to reveals multiple diverticula measuring up to 2.2 cm in depth. A possible perforation site is noted, 5.7 cm from the closest surgical edge. Eight readily apparent white lymph node candidates are noted, measuring up to 0.7 cm in greatest dimension. Financial Institution Manager sections are submitted as follows: A1: Each margin, perpendicular. A2-A3: One full thickness composite section of mucosa in relation to serosal surface/fat. A4: One full thickness composite section of possible perforation site. A5: Six intact possible lymph nodes. A6 : Two possible lymph nodes, inked blue and black, each bisected. ([id number]) /MRV 04/26/2023 1247 Local . 01 Pathologist provided ICD-10: K57.30 . 01 CPT . 652133 Specimen Comment: A courtesy copy of this report has been sent to [phone] Performed at: 01 [facility] [address] [place] [address], [place], [place] [id number] MD Jerrod Jin MD Phone: [phone]
[2023-04-25] MEDS: PIPERACILLIN/TAZO 3.375 GM in SODIUM CHLORIDE 0.9% 100 ML IV (00:15)
[2023-04-25] MEDS: KETOROLAC 30 MG/ML VIAL 15 MG IV (05:12)
--- NOTE | 2023-04-25 06:43 | PC.NURSE ---
Pt left the floor at 0640 for his schedule surgery.
[2023-04-25] MEDS: LACTATED RINGERS 1,000 ML 100 ML IV ×2 (07:15→11:49)
--- NOTE | 2023-04-25 07:45 | PM.HP.1 ---
History of Present Illness History of Present Illness Date Patient Seen: 04/25/23 Time Patient Seen: 07:45 Chief complaint: acute abdominal pain, diverticulitis Narrative: Jerry was admitted to the hospital 2 days ago because of worsening abdominal pain. He received IV antibiotics with improvement in his symptoms. Please see the office visit notes from December and March for details. He did his prep yesterday and last night while he was in the hospital. [facility] Medical History (Updated 04/20/23 @ 14:31 by Sunshine Saravia MD) DDD (degenerative disc disease) Elevated liver enzymes Encounter for removal of sutures Encounter for screening for other viral diseases Encounter for screening for respiratory tuberculosis Facet arthropathy, lumbar Herniated nucleus pulposus, L2-3 left History of COVID-19 (10/2022) HTN (hypertension), benign Lumbar foraminal stenosis Lumbar radiculopathy Morbid obesity Nocturnal hypoxemia Obstructive sleep apnea of adult Primary insomnia Snoring TIA (transient ischemic attack) (~2008) Surgical History (Updated 04/17/23 @ 09:19 by Iman Vora RN) History of cardiac cath (~2017) History of cholecystectomy History of testicular surgery Hx of abdominal surgery Hx of colonoscopy (02/09/23) Family History Father Diabetes mellitus Cancer Mother No pertinent past surgical history Social History household members: friend(s) Smoking Status: Former smoker alcohol intake: current Meds Home Medications and Allergies Home Medications Medication Instructions Recorded Confirmed Type cyclobenzaprine 10 mg tablet 10 mg PO TID PRN muscle spasm #21 12/26/22 04/23/23 Rx tabs amlodipine 2.5 mg tablet 2.5 mg PO DAILY #30 tabs 04/07/23 04/23/23 Rx ciprofloxacin HCl 500 mg tablet 500 mg PO BID #34 tabs 04/07/23 04/23/23 Rx (Cipro) metronidazole 500 mg tablet 500 mg PO TID #52 tabs 04/07/23 04/23/23 Rx neomycin 500 mg tablet 1 g PO TID 3 doses #6 tabs 04/11/23 04/23/23 Rx gabapentin 800 mg tablet 400 mg PO QAM 04/18/23 04/23/23 History spironolactone 25 mg tablet 25 mg PO QAM #30 tabs 04/21/23 04/23/23 Rx atorvastatin 10 mg tablet 10 mg PO QPM 04/23/23 04/23/23 History fenofibrate nanocrystallized 48 mg 48 mg PO QAM 04/23/23 04/23/23 History tablet omeprazole 20 mg capsule,delayed 20 mg PO QAM 04/23/23 04/23/23 History release Allergies Allergy/AdvReac Type Severity Reaction Status Date / Time tree and shrub pollen Allergy Mild Verified 04/25/23 07:17 duloxetine [From Cymbalta] AdvReac Unknown Disoriented Verified 04/25/23 07:17 hydrochlorothiazide AdvReac Unknown Patient Verified 04/25/23 07:17 unsure, possibly affected gallbladder Exam Vital Signs (past 8 hours): - 04/25/23 06:55 Temperature 98.6 F Pulse Rate 66 Respiratory Rate 18 Blood Pressure 153/90 H Pulse Oximetry 96 Oxygen Delivery Method Room Air Oxygen Delivery Method Room Air Oxygen Flow Rate 0 Const General: No acute distress Resp Effort & Inspection: normal respiratory effort Objective Labs 04/23/23 15:12 04/23/23 15:12 Assessment & Plan Assessment and plan (1) Diverticulitis: Status: Acute Plan We reviewed the risks and benefits of laparoscopic-assisted sigmoid colectomy for diverticulitis. I emphasized that given that this diverticulitis has recently flared there is a higher chance that we will need to do a colostomy or diverting loop ileostomy. He understands and wishes to proceed.
[2023-04-25] MEDS: AMPICILLIN/SULBACTAM 3 GM 3 GM in SODIUM CHLORIDE 0.9% 100 ML IV ×2 (08:12→16:45)
--- NOTE | 2023-04-25 08:32 | SUR.OPER ---
Lithotomy on padded OR bed. [place] Pad Positioner under torso. Head on pillow, right arm padded and tucked at side, left arm on padded armboard, <90* abduction. Legs secured in padded yellow fins stirrups.
[2023-04-25] MEDS: BUPIVACAINE 0.5% W/ EPI (PF) 30 ML VIAL INJ (08:45)
--- NOTE | 2023-04-25 09:14 | PC.NURSE ---
0730: assumed care of patient, who is currently off the floor having surgery. awaiting report from PACU/OR.
[2023-04-25] MEDS: BUPIVACAINE LIPOSOME 266 MG/20 ML VIAL INJ (09:32)
--- NOTE | 2023-04-25 12:26 | P.OP_ITS ---
Operative Date/Time/Diagnoses Date of procedure: 04/25/23 Time of procedure: 12:26 Pre-op diagnosis: Acute on chronic sigmoid diverticulitis Post-op diagnosis: same Procedure & Clinicians Procedure: Laparoscopic-assisted sigmoid colectomy with splenic flexure mobilization Diverting loop ileostomy Same procedure as scheduled: Yes Surgeon: Jered Gill Hem Inspector: Brendan Hickman Anesthesia Type: General Operative Notes Procedure in detail: The patient was given Unasyn. The patient was brought to the operating room, placed on the table in the supine position and general endotracheal anesthesia was induced. A Romero catheter was inserted and the legs were placed in stirrups. The abdomen was prepped and draped in the usual fashion and a time- out was performed. We made a 1 cm infraumbilical incision and a Lilly port was placed. The abdomen was insufflated in the usual manner. The camera was inserted no evidence of an injury was seen. Next we placed 5 mm ports in the left lower quadrant, right upper quadrant left mid abdomen and subxiphoid position. We inspected the abdomen and found the thickened, inflamed sigmoid colon. We then started to reflect the sigmoid colon along the white line of Toldt. The ureter was seen and protected. We then continued the dissection to the splenic flexure and performed a splenic flexure takedown. We continued the dissection down into the pelvis. Once we had adequate mobilization we created a low midline incision. The sigmoid colon was quite thickened and indurated and was resected using 2 firings of the contour stapler. The mesentery was divided using the LigaSure staying relatively close to bowel. The specimen demonstrated thickening and induration of the distal sigmoid consistent with the diagnosis. We then created a colorectal anastomosis using the 29 mm EEA stapler. The leak test was positive. We then used proximally 7 2-0 silk Lembert type sutures to reinforce the area of the anastomosis where the greg could be seen. This close the leak and the leak test was now negative. We then traced the terminal ileum back about 20 cm where there was relatively significant degree of mobility. We created a diverting loop ileostomy in the right upper quadrant because the lower abdominal wall was too thick. Finally, Exparel was injected into the pre and post fascial planes. The fascia was then closed using a running 0 PDS suture supported by multiple interrupted 0 Vicryl internal retention sutures. We then matured the loop ileostomy with multiple 4-0 Monocryl sutures in a Cindy fashion. The patient was awakened and brought to recovery room. Brendan ARAGON provided assistance with exposure, retraction and closure of incisions. EBL: 90 mL Post-operative Condition: stable Disposition: PACU
[2023-04-25] MEDS: HYDROMORPHONE 2 MG INJ IV ×2 (13:05→13:14)
[2023-04-25] MEDS: fentaNYL 100 MCG/2 ML INJ IV (13:29)
[2023-04-25] MEDS: HYDROCODONE/ACET 5/325 TABLET 1 TAB PO (13:48)
[2023-04-25] MEDS: HYDROMORPHONE 0.5 MG INJ IV ×2 (15:35→18:09)
[2023-04-25] MEDS: ONDANSETRON 4 MG/2 ML INJ IV (15:39)
--- NOTE | 2023-04-25 17:39 | PC.NURSE ---
1530: returned from surgery, VS obtained, pain is 6/10. o2 sats low 90's, on 2lpm via NC. IV fluids started, NS at 100/hour. intermittent IV abx. midline incision and RUQ ostomy. ice packs are placed on ABD. PRN dilauded given for 6/10 pain. diaphoretic, and ostomy is leaking jean claude blood onto his gown. call to PACU to follow up. PACU nurse arrived to change the wafer and bag. stoma w/ beefy red tissue. blood drainage cleansed from skin, and patient dressed in fresh nightgown. 1800: patient reports pain 7/10, has not shifted position since arriving to floor. too early for pain meds, no oxycodone noted to be on med list. call to PACU to request PO pain med. 2pa change in position, patient splinting w/ pillow and ice packs. tolerated well. HOB up 30 degrees, o2 sats mid-higher 90s. continues w/ 2lpm via NC. ostomy now has small amount of brown liquid stool. no further blood drainage. or leaking out of wafer/adhesive.
[2023-04-25] MEDS: HYDROCODONE/ACET 5/325 TABLET 2 TAB PO (19:22)
[2023-04-25] MEDS: ACETAMINOPHEN 325 MG TABLET 975 MG PO (20:37)
[2023-04-25] MEDS: ATORVASTATIN 20 MG TABLET 10 MG PO (20:38)
[2023-04-25] MEDS: SODIUM CHLORIDE 0.9% FLUSH 10 ML IV (20:39)
[2023-04-26] VITALS: BP 108/59; PULSE 64; RESP 18; TEMP 36.2; O2SAT 97
--- NOTE | 2023-04-26 01:32 | PC.NURSE ---
Patient is alert and oriented. Breath sounds CTA with RA sat of 97%. HRR. Denies nausea and is taking sips of water and gingerale; is otherwise NPO. BT present but has not yet passed flatus. Does have an ileostomy that has dark brown liquid in bag. Aquacel dressing to midline intact with small spots of drainage noted. 2 bandaid dressings to left abdomen intact; lower bandaid has small spots of drainage. Indwelling catheter is patent. Is needing assistance to reposition q2h as having difficulty moving related to abdominal discomfort. Was medicated with vicodin and scheduled tylenol and states pain is tolerable at 5/10; ice packs being used for comfort. Abdomen is distended and tender but soft to touch. Has not yet been out of bed so gait is not assessed at this time. Wearing bilateral calf SCD's. Puffiness noted in bilateral feet. Fall risk score is moderate and bed alarm is activated.
[2023-04-26] MEDS: HYDROCODONE/ACET 5/325 TABLET 2 TAB PO (02:11)
[2023-04-26] MEDS: ACETAMINOPHEN 325 MG TABLET 975 MG PO ×3 (02:12→14:57)
[2023-04-26] MEDS: SODIUM CHLORIDE 0.9% 1,000 ML 100 ML IV ×2 (04:42→14:59)
[2023-04-26 06:00] VITALS: BP 111/59; PULSE 63; RESP 18; TEMP 36.6; O2SAT 98
[2023-04-26] MEDS: PANTOPRAZOLE DR 20 MG TABLET PO (06:00)
[2023-04-26 07:00] VITALS: O2SAT 97
[2023-04-26] MEDS: AMPICILLIN/SULBACTAM 3 GM 3 GM in SODIUM CHLORIDE 0.9% 100 ML IV ×2 (08:19)
[2023-04-26] MEDS: SPIRONOLACTONE 25 MG TABLET PO (08:20)
[2023-04-26] MEDS: AMLODIPINE 5 MG TABLET 2.5 MG PO (08:20)
[2023-04-26] MEDS: GABAPENTIN 400 MG CAPSULE PO (08:20)
[2023-04-26] MEDS: SODIUM CHLORIDE 0.9% FLUSH 10 ML IV ×2 (08:21→20:47)
[2023-04-26] MEDS: HYDROMORPHONE 0.5 MG INJ IV ×2 (08:21→17:11)
[2023-04-26 08:55] VITALS: BP 119/67; PULSE 64; RESP 16; TEMP 36.3; O2SAT 97
--- NOTE | 2023-04-26 09:54 | PM.PN.1 ---
Subjective Subjective Date Patient Seen: 04/26/23 Time Patient Seen: 09:54 Interval history: Don reports no problems. Sipping on clears. The ileostomy has had some liquid stool output already. Exam Vital Signs (past 8 hours): - 04/26/23 06:00 04/26/23 08:55 Temperature 97.9 F 97.4 F L Pulse Rate 63 64 Respiratory Rate 18 16 Blood Pressure 111/59 L 119/67 Pulse Oximetry 98 97 Oxygen Flow Rate 0 Oxygen Delivery Method Room Air Oxygen Flow Rate 0 Narrative Exam Narrative: Midline dressing is intact Ileostomy is somewhat dusky but viable Objective Labs 04/23/23 15:12 04/23/23 15:12 PFS Medical History (Updated 04/26/23 @ 09:55 by Jered Gill MD) DDD (degenerative disc disease) Elevated liver enzymes Encounter for removal of sutures Encounter for screening for other viral diseases Encounter for screening for respiratory tuberculosis Facet arthropathy, lumbar Herniated nucleus pulposus, L2-3 left History of COVID-19 (10/2022) HTN (hypertension), benign Lumbar foraminal stenosis Lumbar radiculopathy Morbid obesity Nocturnal hypoxemia Obstructive sleep apnea of adult Primary insomnia Snoring TIA (transient ischemic attack) (~2008) Surgical History (Updated 04/17/23 @ 09:19 by Iman Vora RN) History of cardiac cath (~2017) History of cholecystectomy History of testicular surgery Hx of abdominal surgery Hx of colonoscopy (02/09/23) Family History Father Diabetes mellitus Cancer Mother No pertinent past surgical history Social History household members: friend(s) Smoking Status: Former smoker alcohol intake: current Assessment & Plan Assessment and plan (1) Postoperative examination: Status: Acute Plan Doing well postoperative day 1 following sigmoid colectomy with diverting loop ileostomy We will start working on ileostomy teaching Stay on clear liquids today as he has minimal appetite Start Lovenox
[2023-04-26] MEDS: HYDROCODONE/ACET 5/325 TABLET 1 TAB PO ×2 (11:34→20:46)
[2023-04-26 15:34] LABS: Add Manual Diff / Slide Review NO; Basophils Absolute Auto 0 /uL (0-100); Basophils Percent Auto 0.3 % (0-2); Eosinophils Absolute Auto 0 /uL (0-450); Eosinophils Percent Auto 0.2 % (2-4); Hematocrit 35.6 % (41-53); Lymphocytes Absolute Auto 2100 /uL (1100-4500); Mean Corpuscular HGB Conc 33.6 % (30-36); Mean Corpuscular Hemoglobin 30.6 PG (26-34); Mean Corpuscular Volume 91.1 fL (80-100); Monocytes Absolute Auto 1400 /uL (0-900); Monocytes Percent Auto 10.2 % (3-14); Neutrophils Absolute Auto 9800 /uL (1500-7000); Neutrophils Percent Auto 73.3 % (50-75); Platelet Count 269 X10^3/uL (150-400); Red Blood Cell Count 3.91 X10^6/uL (4.5-5.9); White Blood Cell Count 13.3 X10^3/uL (4.5-11.0)
[2023-04-26 15:44] LABS: BUN Creatinine Ratio 5.3 (6-22); Blood Urea Nitrogen 4 mg/dL (9-20); Calcium 7.5 mg/dL (8.4-10.2); Carbon Dioxide 25 mmol/L (22-32); Chloride 104 mmol/L (98-107); Estimated Glomerular Filt Rate > 60 mL/min (>60); Glucose 108 mg/dL (80-110); HEMOLYSIS < 15 (0-50); Sodium 135 mmol/L (137-145)
[2023-04-26] MEDS: PIPERACILLIN/TAZO 3.375 GM in SODIUM CHLORIDE 0.9% 100 ML IV (17:11)
--- NOTE | 2023-04-26 18:09 | PC.NURSE ---
Ostomy teaching started this evening while assessing and draining output. Pt participated in teaching and was able to empty the pouch with minimal assistance. Pt was attentive to cleaning the pouch after emptying and wore gloves throughout the procedure.
[2023-04-26 19:00] VITALS: BP 112/57; PULSE 66; RESP 18; TEMP 36.2; O2SAT 98
[2023-04-26] MEDS: ATORVASTATIN 20 MG TABLET 10 MG PO (20:46)
[2023-04-26] MEDS: ENOXAPARIN 40 MG/0.4 ML SYRINGE SUBCUT (20:47)
--- NOTE | 2023-04-26 23:53 | PC.NURSE ---
Patient is alert and oriented. Breath sounds CTA with RA sat of 98%. HRR. Denies nausea. BT present and is passing flatus. Ostomy with pale stoma and draining dark brown liquid. Aquacel and bandaid dressings intact with no new drainage. Abdomen is large and round, but soft. Still having 4-6/10 abdominal pain exacerbated by any movement; being controlled with use of Vicodin. Is reluctant to move and refused to attempt to get out of bed tonight. Instructed on importance of moving in order to prevent post-op complications and patient verbalized understanding but still refusing to get out of bed tonight. Is being assisted in repositioning q2h. Continues to having puffy feet which is his normal per patient. Is wearing bilateral calf SCD's. Fall risk score is moderate and bed alarm is activated.
[2023-04-27] MEDS: HYDROCODONE/ACET 5/325 TABLET 2 TAB PO ×4 (00:31→22:29)
[2023-04-27] MEDS: PIPERACILLIN/TAZO 3.375 GM in SODIUM CHLORIDE 0.9% 100 ML IV ×2 (00:37→08:09)
[2023-04-27] MEDS: SODIUM CHLORIDE 0.9% 1,000 ML 100 ML IV (00:41)
[2023-04-27] MEDS: PANTOPRAZOLE DR 20 MG TABLET PO (05:34)
[2023-04-27 06:56] LABS: Add Manual Diff / Slide Review NO; Basophils Absolute Auto 100 /uL (0-100); Basophils Percent Auto 0.6 % (0-2); Eosinophils Absolute Auto 100 /uL (0-450); Eosinophils Percent Auto 0.7 % (2-4); Hematocrit 36.8 % (41-53); Hemoglobin 12.4 g/dL (13.5-17.5); Lymphocytes Absolute Auto 3000 /uL (1100-4500); Lymphocytes Percent Auto 21.2 % (25-40); Mean Corpuscular HGB Conc 33.8 % (30-36); Mean Corpuscular Hemoglobin 30.6 PG (26-34); Mean Corpuscular Volume 90.6 fL (80-100); Monocytes Absolute Auto 1400 /uL (0-900); Neutrophils Absolute Auto 9500 /uL (1500-7000); Neutrophils Percent Auto 67.5 % (50-75); Platelet Count 293 X10^3/uL (150-400); Red Blood Cell Count 4.06 X10^6/uL (4.5-5.9); Red Cell Distribution Width 14.1 % (11.6-14.8); White Blood Cell Count 14.1 X10^3/uL (4.5-11.0)
[2023-04-27 07:00] VITALS: BP 163/75; PULSE 63; RESP 17; TEMP 36.7; O2SAT 97
[2023-04-27 08:00] VITALS: O2SAT 97
[2023-04-27] MEDS: SPIRONOLACTONE 25 MG TABLET PO (08:08)
[2023-04-27] MEDS: GABAPENTIN 400 MG CAPSULE PO (08:08)
[2023-04-27] MEDS: AMLODIPINE 5 MG TABLET 2.5 MG PO (08:08)
[2023-04-27] MEDS: HYDROCODONE/ACET 5/325 TABLET 1 TAB PO ×2 (08:08→20:50)
[2023-04-27] MEDS: SODIUM CHLORIDE 0.9% FLUSH 10 ML IV ×2 (08:09→20:52)
[2023-04-27] MEDS: ENOXAPARIN 40 MG/0.4 ML SYRINGE SUBCUT ×2 (08:09→20:49)
--- NOTE | 2023-04-27 10:57 | PM.PNPO.1 ---
Subjective Subjective Date Patient Seen: 04/27/23 Time Patient Seen: 10:57 Interval history: Tolerant of liquid diet. Ileostomy is productive. Pain is appropriately controlled. No acute events over the past 24 hours. Exam Vital Signs (past 8 hours): - 04/27/23 08:00 04/27/23 07:00 Temperature 98.1 F Pulse Rate 63 Respiratory Rate 17 Blood Pressure 163/75 H Pulse Oximetry 97 97 Oxygen Delivery Method Room Air Oxygen Flow Rate 0 0 Oxygen Delivery Method Room Air Oxygen Flow Rate 0 Narrative Exam Narrative: General adult man alert oriented no acute distress Chest nonlabored respiration Abdomen productive ileostomy. Abdomen is appropriately tender to palpation. Midline dressing is clean and intact. Objective Labs 04/27/23 06:45 04/26/23 15:28 Labs: Laboratory Results - last 24 hr 04/26/23 04/26/23 04/27/23 15:28 15:28 06:45 WBC 13.3 H 14.1 H RBC 3.91 L 4.06 L Hgb 12.0 L 12.4 L Hct 35.6 L 36.8 L MCV 91.1 90.6 MCH 30.6 30.6 MCHC 33.6 33.8 RDW 14.0 14.1 Plt Count 269 293 Neut % (Auto) 73.3 67.5 Lymph % (Auto) 16.0 L 21.2 L Coleman % (Auto) 10.2 10.0 Eos % (Auto) 0.2 L 0.7 L Baso % (Auto) 0.3 0.6 Neut # (Auto) 9800 H 9500 H Lymph # (Auto) 2100 3000 Coleman # (Auto) 1400 H 1400 H Eos # (Auto) 0 100 Baso # (Auto) 0 100 Sodium 135 L Potassium 4.0 Chloride 104 Carbon Dioxide 25 BUN 4 L Creatinine 0.75 Estimated GFR > 60 BUN/Creatinine Ratio 5.3 L Glucose 108 Calcium 7.5 L PFSH Medical History (Updated 04/26/23 @ 09:55 by Jered Gill MD) DDD (degenerative disc disease) Elevated liver enzymes Encounter for removal of sutures Encounter for screening for other viral diseases Encounter for screening for respiratory tuberculosis Facet arthropathy, lumbar Herniated nucleus pulposus, L2-3 left History of COVID-19 (10/2022) HTN (hypertension), benign Lumbar foraminal stenosis Lumbar radiculopathy Morbid obesity Nocturnal hypoxemia Obstructive sleep apnea of adult Primary insomnia Snoring TIA (transient ischemic attack) (~2008) Surgical History (Updated 04/17/23 @ 09:19 by Iman Vora RN) History of cardiac cath (~2017) History of cholecystectomy History of testicular surgery Hx of abdominal surgery Hx of colonoscopy (02/09/23) Family History Father Diabetes mellitus Cancer Mother No pertinent past surgical history Social History household members: friend(s) Smoking Status: Former smoker alcohol intake: current Assessment & Plan Post-op Postoperative Procedures: Procedures Operation Date: 04/25/23 07:45 Actual Procedure Side Surgeon p Laparoscopic Assisted Sigmoid Colectomy with diverting loop ileostomy Jered Gill MD Postoperative status narrative: 62-year-old man postoperative day 2 status post sigmoid colectomy with diverting loop ileostomy for diverticulitis. He is recovering appropriately from the operation ileostomy is functional. -advance to regular diet -DC IV fluids -ostomy teaching -PT consult
--- NOTE | 2023-04-27 15:11 | PT.IIE ---
Current Diagnoses Pure hyperglyceridemia (04/23/23) Essential (primary) hypertension (04/23/23) Diverticulitis of intestine, part unspecified, without perforation or abscess without bleeding (04/23/23) Edema, unspecified (04/23/23) Encounter for follow-up examination after completed treatment for conditions other than malignant neoplasm (04/23/23) Surgery Performed Operation Date: 04/25/23 07:45 Actual Procedures p Laparoscopic Assisted Sigmoid Colectomy with diverting loop ileostomy - Jered Gill MD Surgical History (Last Updated 04/17/23 @ 09:19 by Iman Vora RN) History of cardiac cath (~2017) History of cholecystectomy History of testicular surgery Hx of abdominal surgery Hx of colonoscopy (02/09/23) Medical History (Last Updated 04/17/23 @ 09:30 by Iman Vora RN) DDD (degenerative disc disease) Elevated liver enzymes Encounter for removal of sutures Encounter for screening for other viral diseases Encounter for screening for respiratory tuberculosis Facet arthropathy, lumbar Herniated nucleus pulposus, L2-3 left History of COVID-19 (10/2022) HTN (hypertension), benign Lumbar foraminal stenosis Lumbar radiculopathy Morbid obesity Nocturnal hypoxemia Obstructive sleep apnea of adult Primary insomnia Snoring TIA (transient ischemic attack) (~2008) Physical Therapy Inpatient Evaluation/Re-Eval M1 PT/OT-IP Prior Functional Status Start: 04/27/23 16:08 Freq: NEEDED Status: Active Protocol: Document 04/27/23 15:11 AB (Rec: 04/27/23 16:24 AB [id number]) Medical Review Prior Functional Status Medical History Reviewed Yes Communication able to make needs known Mobility and Gait pt stated that he is independent with all mobilities and ambulation without AD Social History Household Members friend(s) Living Arrangements House Number of Floors (Floors) One Floor Number of Stairs To Enter/Railing? ramp + 5 steps without rails from the parking lot to the house and has another 1 step to enter the house Home Environment High Toilet,Tub/Shower Home Equipment Straight Cane,Hand Held Shower ,Grab Bars In Shower Additional Social History Comment pt has 3 roommates at home that may assist him if needed M2 PT-IP Current Condition Start: 04/27/23 16:08 Freq: NEEDED Status: Active Protocol: Document 04/27/23 15:11 AB (Rec: 04/27/23 16:24 [id number]) Physical Therapy Current Condition Current Condition Evaluation Date 04/27/23 Treatment Diagnosis diverticulitis s/p colectomy; difficulty in walking Onset Date 04/23/23 M3 PT-IP Subjective Start: 04/27/23 16:08 Freq: NEEDED Status: Active Protocol: Document 04/27/23 15:11 AB (Rec: 04/27/23 16:24 [id number]) Subjective Physical Therapy Visit Type Type Initial Evaluation Visit Start Time 15:11 Visit Stop Time 15:53 Total Visit Minutes 42 Notes checked on pt ~ 1420 and refused PT. stated that he has a lot of abdominal pain . nurse was about to give pt pain meds and pt agreed for PT to check back. checked back on pt after ~ 1 hour and pt agreed to do PT. Number of APPLICATION SUPPORT Visits 0 Therapy Pain Assessment Pain When Pain Assessed At Rest Pain Present Pain Present Pain Reported Location Abdomen Intensity 6 Scale Used increases to 8/10 after mobility Pain Behaviors Facial Grimacing,Guarding, Wincing Pain Management Techniques Distraction,Modification of Treatment,Re-positioning, Timing of Activity with Medications M4 PT-IP Mobility and Gait Start: 04/27/23 16:08 Freq: NEEDED Status: Active Protocol: Document 04/27/23 15:11 AB (Rec: 04/27/23 16:24 [id number]) PT-Bed Mobility Assessment Rolling Type of Rolling Log Rolling Level of Assist Maximal Assistance Sit to Supine Sit to Supine Maximum Assistance PT-Transfer Assessment Sit to and From Stand Sit to and from Stand Moderate Assistance,Maximum Assistance,1 Person Assistance ,Use of Upper Extremities Equipment Transfer Assistive Device Gait Belt,Front Wheeled Walker Orthotic/Prosthetic Devices or Brace: No Transfers Transfer Destination Bed Transfer Technique ambulated Transfer Ability Level of Assist Moderate Assistance,1 Person Assistance,Use of Upper Extremities Comments Mobility Comments pt sitting on the chair. initially refused PT due to pain. pt received pain meds and PT checked back for ~ 1 hour and agreed to do PT. educated pt on abdominal precautions. pt completed sit to stand mod to max A from the chair. ambulated in room using FWW ~ 20 ft mod A. presents with slow pace and wide KATHERINE; increase forward trunk flexion with heavy UE use on FWW and with slight increase of L knee flexion during standing and ambulation. pt stated that he has sciatica and LLE is usually the affected side. pt sat on EOB. completed log roll sit to supine max A and max cues. positioned pt in bed. call light and table placed within reach. pt then stated that everybody is pushing him to be up and moving and that he is not too happy about it. stated that he knows what he needs to do and importance of moving but that he knows his body and if he has alot of pain, then he cannot move. informed nurse. Gait Assessment Gait Gait Assistance Required: Moderate Assistance Distance (Feet) 20 Able to Maintain Weight Bearing Status Yes During Gait Assistive Devices Assistive Device Gait Belt,Front Wheeled Walker Orthotic/Prosthetic Devices or Brace: No Gait Deviations General Gait Pattern Decreased Stride Length, Decreased Feet Clearance,Wide Based Gait Factors Limiting Gait Function Factors Limiting Gait Function Decreased Activity Tolerance, Decreased Strength,Limited Range of Motion,Pain,Poor Balance,Poor Safety Awareness PT-Balance Assessment Sitting Balance and Reactions Static Sitting Balance Ability Good Dynamic Sitting Balance Ability Good Standing Balance and Reactions Static Standing Balance Ability Poor Dynamic Standing Balance Ability Poor Device Used FWW M5 PT-IP Objective Assessments Start: 04/27/23 16:08 Freq: NEEDED Status: Active Protocol: Document 04/27/23 15:11 AB (Rec: 04/27/23 16:24 AB [id number]) Orientation Orientation/Cognition Level of Alertness Alert Orientation Name,Place,Situation Language Function Ability No Deficits Noted Safety Awareness Decreased Safety Awareness Memory Description No Deficits Noted Gross Range of Motion Lower Extremity ROM Assessment Within Functional Limits Strength Lower Extremity Strength Assessment Within Functional Limits Muscle Tone Muscle Tone WNL Yes M6 PT-IP Treatment Start: 04/27/23 16:08 Freq: NEEDED Status: Active Protocol: Document 04/27/23 15:11 AB (Rec: 04/27/23 16:24 AB [id number]) Physical Therapy Treatment Education Education Provided Precautions,Weight Bearing Status,Post-Op Packet,Safety M7 PT-IP Assessment and Plan Start: 04/27/23 16:08 Freq: NEEDED Status: Active Protocol: Document 04/27/23 15:11 AB (Rec: 04/27/23 16:24 AB [email or web address]) PT Summary Assessment and Plan Potential Rehabilitation Potential Fair Status of Condition at Evaluation Evolving Summary Impairments Pain,ROM,Strength,Balance, Coordination,Sensation,Tone, Cognition,Bed Mobility, Transfers,Gait,Activity Tolerance Assessment Summary pt with diverticulities and underwent colectomy 04/25/23. pt with c/o increase abdominal pain affecting mobility. Currently, pt needing max A for bed mobility log roll, mod to max A for sit to stand and unable to tolerate much ambulation using FWW due to pain and only completed ~ 20 ft. informed pt regarding SNF rehab depending on progress and agreed. will continue to assess. Goals Bed Mobility Goal Standby Assistance Transfer Goal Standby Assistance,Front Wheeled Walker Gait Goal Standby Assistance,Front Wheel Walker Gait Distance 150 Other Goals improve ambulation using SPC 200 ft SBA up/down 5 steps without rail/ SPC SBA Days to Meet Goals 10 Frequency of Treatment Frequency Of Treatment Once a Day Treatment Plan Physical Therapy Treatment Plan Bed Mobility Training,Transfer Training,Gait Training, Therapeutic Exercise,Balance Retraining,Post Op Education, Discharge Planning,Hot or Cold Pack,Neuromuscular Re-ed, Coordination Retraining,Manual Therapy Precautions Abdominal Surgery Precautions Log Roll,Lifting Restrictions, Gait Belt above Incisional Area Recommendations To Nursing Amount of Assist Needed 1 Person Assist Discharge Recommendations PT Discharge Recommendations SNF Rehab,Home vs SNF Equipment Needed for Home Before FWW if pt goes home and not Discharge safe with SPC/without AD Transportation Needs at Discharge Private Vehicle,Wheelchair/ Cabulance
[2023-04-27] MEDS: HYDROMORPHONE 0.5 MG INJ IV (15:54)
[2023-04-27 19:00] VITALS: BP 148/70; PULSE 74; RESP 20; TEMP 36.3; O2SAT 98
[2023-04-27] MEDS: ATORVASTATIN 20 MG TABLET 10 MG PO (20:49)
[2023-04-28] MEDS: HYDROCODONE/ACET 5/325 TABLET 2 TAB PO ×3 (03:04→20:03)
[2023-04-28] MEDS: PANTOPRAZOLE DR 20 MG TABLET PO (06:03)
[2023-04-28 07:00] VITALS: BP 153/83; PULSE 66; RESP 14; TEMP 36.2; O2SAT 96
[2023-04-28 07:44] VITALS: O2SAT 97
[2023-04-28] MEDS: GABAPENTIN 400 MG CAPSULE PO (09:41)
[2023-04-28] MEDS: SPIRONOLACTONE 25 MG TABLET PO (09:41)
[2023-04-28] MEDS: AMLODIPINE 5 MG TABLET 2.5 MG PO (09:41)
[2023-04-28] MEDS: SODIUM CHLORIDE 0.9% FLUSH 10 ML IV ×2 (09:42→21:24)
[2023-04-28] MEDS: ENOXAPARIN 40 MG/0.4 ML SYRINGE SUBCUT ×2 (09:45→21:23)
[2023-04-28] MEDS: HYDROCODONE/ACET 5/325 TABLET 1 TAB PO ×2 (11:30→15:39)
--- NOTE | 2023-04-28 12:50 | PT.IPTN ---
Current Diagnoses Pure hyperglyceridemia (04/23/23) Essential (primary) hypertension (04/23/23) Diverticulitis of intestine, part unspecified, without perforation or abscess without bleeding (04/23/23) Edema, unspecified (04/23/23) Encounter for follow-up examination after completed treatment for conditions other than malignant neoplasm (04/23/23) Surgery Performed Operation Date: 04/25/23 07:45 Actual Procedures p Laparoscopic Assisted Sigmoid Colectomy with diverting loop ileostomy - Jered Gill MD Physical Therapy Treatment Note M2 PT-IP Current Condition Start: 04/27/23 16:08 Freq: NEEDED Status: Active Protocol: Document 04/27/23 15:11 AB (Rec: 04/27/23 16:24 AB [email or web address]) Physical Therapy Current Condition Current Condition Evaluation Date 04/27/23 Treatment Diagnosis diverticulitis s/p colectomy; difficulty in walking Onset Date 04/23/23 M3 PT-IP Subjective Start: 04/27/23 16:08 Freq: NEEDED Status: Active Protocol: Document 04/28/23 13:24 TS (Rec: 04/28/23 13:49 TS [id number]) Subjective Physical Therapy Visit Type Type Treatment Note Visit Start Time 12:50 Visit Stop Time 13:15 Total Visit Minutes 25 Number of FLASK CARRIER Visits 1 Physical Therapy Visit Comments Patient Comments Pt reports he is feeling better this afternoon, was up with nursing walking the halls . He states he is worried about d/c due to friend not being able to come until Monday from [facility] to pick him up. Pt was agreeable to PT. Therapy Pain Assessment Pain When Pain Assessed During Mobility Pain Present Pain Present Pain Reported Location Abdomen Intensity 3 Scale Used Numeric (0 - 10) Description Aching,With Movement Pain Behaviors Facial Grimacing,Guarding, Wincing Pain Management Techniques Distraction,Modification of Treatment,Re-positioning, Timing of Activity with Medications M4 PT-IP Mobility and Gait Start: 04/27/23 16:08 Freq: NEEDED Status: Active Protocol: Document 04/28/23 13:24 TS (Rec: 04/28/23 13:49 TS [id number]) PT-Bed Mobility Assessment Rolling Type of Rolling Log Rolling Level of Assist Standby Assistance Supine to Sit Supine to Sit Standby Assistance Sit to Supine Sit to Supine Standby Assistance Scooting Scooting Up and Down in Bed Standby Assistance PT-Transfer Assessment Sit to and From Stand Sit to and from Stand Standby Assistance,Use of Upper Extremities Equipment Transfer Assistive Device Gait Belt,Front Wheeled Walker Orthotic/Prosthetic Devices or Brace: No Comments Mobility Comments Pt found sitting in chair, agreeable to PT. Sit to stand SBA with BUE support pushing from arms of chair with FWW. Pt ambulated ~350'SBA with FWW with step thru gait, had no buckling or LOB, denied any dizziness or SOB. He performed stairs x3 with single rail CGA and x3 no rail close SBA, pt was slow/cautious to step due to pain. Sit to supine into bed SBA with use of bed rails, had some difficulty getting LEs into bed. Supine to sit SBA with BUE support and handrail assist, back to supine SBA with decreased difficulty. Pt was left back in bed with call light nearby, all needs met, RN notified. Gait Assessment Gait Gait Assistance Required: Standby Assistance Distance (Feet) 350 Able to Maintain Weight Bearing Status Yes During Gait Assistive Devices Assistive Device Gait Belt,Front Wheeled Walker Orthotic/Prosthetic Devices or Brace: No Gait Deviations General Gait Pattern Decreased Stride Length, Decreased Feet Clearance,Wide Based Gait Factors Limiting Gait Function Factors Limiting Gait Function Decreased Activity Tolerance, Decreased Strength,Limited Range of Motion,Pain,Poor Balance,Poor Safety Awareness Comments Gait Comments See mobility comments. Stair Climbing Assessment Evaluation Level of Assist On Stairs Standby Assistance,Contact Guard Assistance Devices Stair Climbing Assistive Devices Right Railing Technique/Endurance Stair Climbing Direction Ascend and Descend Stair Climbing Technique Step to Step Number of Steps Climbed 6 Comments Stair Climbing Comments See mobility comments. PT-Balance Assessment Sitting Balance and Reactions Static Sitting Balance Ability Good Dynamic Sitting Balance Ability Good Standing Balance and Reactions Static Standing Balance Ability Good Dynamic Standing Balance Ability Fair Device Used FWW M5 PT-IP Objective Assessments Start: 04/27/23 16:08 Freq: NEEDED Status: Active Protocol: Document 04/27/23 15:11 AB (Rec: 04/27/23 16:24 AB [id number]) Orientation Orientation/Cognition Level of Alertness Alert Orientation Name,Place,Situation Language Function Ability No Deficits Noted Safety Awareness Decreased Safety Awareness Memory Description No Deficits Noted Gross Range of Motion Lower Extremity ROM Assessment Within Functional Limits Strength Lower Extremity Strength Assessment Within Functional Limits Muscle Tone Muscle Tone WNL Yes M6 PT-IP Treatment Start: 04/27/23 16:08 Freq: NEEDED Status: Active Protocol: Document 04/28/23 13:24 TS (Rec: 04/28/23 13:49 TS [id number]) Physical Therapy Treatment Education Education Provided Precautions,Weight Bearing Status,Post-Op Packet,Safety M7 PT-IP Assessment and Plan Start: 04/27/23 16:08 Freq: NEEDED Status: Active Protocol: Document 04/28/23 13:24 TS (Rec: 04/28/23 13:49 TS [id number]) PT Summary Assessment and Plan Potential Rehabilitation Potential Good Summary Impairments Pain,ROM,Strength,Balance, Coordination,Sensation,Tone, Cognition,Bed Mobility, Transfers,Gait,Activity Tolerance Progress Towards Goals Progressing Toward Goals Assessment Summary Pt is progressing well with his mobility and his pain is being managed better this afternoon. He is SBA for sit to stand with FWW and SBA for gait ~350'. He performed stairs x3 with single R rail and CGA and x3 with no rail SBA/CGA, had no buckling or LOB. He performed all bed mobility SBA, 1st sit to supine was more difficult for getting LEs into bed but on 2nd attempt he did it with less of a struggle. PT continues to recommend SNF vs Home at this time. Pt would benefit from skilled rehab to progress to more independence before d/c home and pt is willing to go to rehab. Pt was discussing possible d/c tomorrow and reports his friend cannot pick him up and take him home to [place] until Monday. Goals Bed Mobility Goal Standby Assistance Transfer Goal Standby Assistance,Front Wheeled Walker Gait Goal Standby Assistance,Front Wheel Walker Gait Distance 150 Other Goals improve ambulation using SPC 200 ft SBA up/down 5 steps without rail/ SPC SBA Days to Meet Goals 10 Frequency of Treatment Frequency Of Treatment Once a Day Treatment Plan Physical Therapy Treatment Plan Bed Mobility Training,Transfer Training,Gait Training, Therapeutic Exercise,Balance Retraining,Post Op Education, Discharge Planning,Hot or Cold Pack,Neuromuscular Re-ed, Coordination Retraining,Manual Therapy Other Recommendations and Next Treatment Trial gait and steps with cane Focus . Precautions Abdominal Surgery Precautions Log Roll,Lifting Restrictions, Gait Belt above Incisional Area Recommendations To Nursing Amount of Assist Needed 1 Person Assist Discharge Recommendations PT Discharge Recommendations SNF Rehab,Home vs SNF Equipment Needed for Home Before FWW if pt goes home and not Discharge safe with SPC/without AD Transportation Needs at Discharge Private Vehicle,Wheelchair/ Cabulance
--- NOTE | 2023-04-28 13:18 | P.PN_ITS ---
Subjective Subjective Date Patient Seen: 04/28/23 Time Patient Seen: 13:18 Interval history: Tolerating regular diet. Significant incisional pain and difficulty mobilizing. Ostomy is functional Exam Vital Signs (past 8 hours): - 04/28/23 07:44 04/28/23 07:00 Temperature 97.2 F L Pulse Rate 66 Respiratory Rate 14 Blood Pressure 153/83 H Pulse Oximetry 97 96 Oxygen Delivery Method Room Air Oxygen Flow Rate 0 0 Oxygen Delivery Method Room Air Oxygen Flow Rate 0 Narrative Exam Narrative: General adult man alert oriented no distress Abdomen soft appropriately tender to palpation. Ostomy is functional Objective Labs 04/27/23 06:45 04/26/23 15:28 [facility] Medical History (Updated 04/26/23 @ 09:55 by Jered Gill MD) DDD (degenerative disc disease) Elevated liver enzymes Encounter for removal of sutures Encounter for screening for other viral diseases Encounter for screening for respiratory tuberculosis Facet arthropathy, lumbar Herniated nucleus pulposus, L2-3 left History of COVID-19 (10/2022) HTN (hypertension), benign Lumbar foraminal stenosis Lumbar radiculopathy Morbid obesity Nocturnal hypoxemia Obstructive sleep apnea of adult Primary insomnia Snoring TIA (transient ischemic attack) (~2008) Surgical History (Updated 04/17/23 @ 09:19 by Iman Vora RN) History of cardiac cath (~2017) History of cholecystectomy History of testicular surgery Hx of abdominal surgery Hx of colonoscopy (02/09/23) Family History Father Diabetes mellitus Cancer Mother No pertinent past surgical history Social History household members: friend(s) Smoking Status: Former smoker alcohol intake: current Assessment & Plan Post-op Postoperative Procedures: Procedures Operation Date: 04/25/23 07:45 Actual Procedure Side Surgeon p Laparoscopic Assisted Sigmoid Colectomy with diverting loop ileostomy Jered Gill MD Postoperative status narrative: 62-year-old man postoperative day 3 status post sigmoid colectomy with diverting ostomy for diverticulitis. He is slowly recovering ostomy is functioning but having difficulty mobilizing. PT ordered will follow up with their consult in regards to his disposition rehab versus home.
--- NOTE | 2023-04-28 14:38 | CM.DPNOTE ---
Addendum entered by Sunshine Barahona NAVEEN 04/28/23 14:53: add: Referral faxed to [facility] including demo sheet, F2F, HH order, H+P. Still need to confirm receipt and fax DC Summary when available Original Note: DCP Note According to PT and Dr Reveles, patient may benefit from SNF Met with patient to review DCP. Patient says I've been thinking about it and patient feels confident about return home, does not want to discharge to SNF. Patient plans to have a friend transport him home (just learned this friend not available until Monday) patient already has a priority board pass (for 30 days) and he feels confident about the care and management of his new ostomy Patient states his greatest concern is having his pain controlled enough to be able to get up and navigate his home. Explained questions about medication will need to be discussed with Dr Reveles and w/RN, patient states understanding Discussed services and patient agreeable, referral made to [facility] for HH RN/PT/OT (Only HH agency available on [facility]) Updated Dr Reveles Placed call to [facility] transport after learning patient's ride not available until Monday (?) [facility] transport [place]. ELENI Ramos unsure patient can tolerate walking [place] and [place] ride alone Plan: Discharge home w/[facility] services anticipated this weekend via friend to transport JW
[2023-04-28 20:01] VITALS: BP 153/86; PULSE 76; RESP 15; TEMP 36.2; O2SAT 96
[2023-04-28 20:30] VITALS: O2SAT 96
[2023-04-28] MEDS: ATORVASTATIN 20 MG TABLET 10 MG PO (21:23)
[2023-04-29] MEDS: HYDROCODONE/ACET 5/325 TABLET 2 TAB PO ×6 (00:03→20:50)
[2023-04-29] MEDS: PANTOPRAZOLE DR 20 MG TABLET PO (05:51)
[2023-04-29 07:00] VITALS: BP 133/79; PULSE 62; RESP 16; TEMP 36.2; O2SAT 97
[2023-04-29 08:31] VITALS: O2SAT 97
[2023-04-29] MEDS: ENOXAPARIN 40 MG/0.4 ML SYRINGE SUBCUT ×2 (08:31→20:51)
[2023-04-29] MEDS: SPIRONOLACTONE 25 MG TABLET PO (08:32)
[2023-04-29] MEDS: AMLODIPINE 5 MG TABLET 2.5 MG PO (08:32)
[2023-04-29] MEDS: GABAPENTIN 400 MG CAPSULE PO (08:32)
[2023-04-29] MEDS: SODIUM CHLORIDE 0.9% FLUSH 10 ML IV ×2 (08:34→20:51)
--- NOTE | 2023-04-29 10:05 | PT.IPTN ---
Current Diagnoses Pure hyperglyceridemia (04/23/23) Essential (primary) hypertension (04/23/23) Diverticulitis of intestine, part unspecified, without perforation or abscess without bleeding (04/23/23) Edema, unspecified (04/23/23) Encounter for follow-up examination after completed treatment for conditions other than malignant neoplasm (04/23/23) Surgery Performed Operation Date: 04/25/23 07:45 Actual Procedures p Laparoscopic Assisted Sigmoid Colectomy with diverting loop ileostomy - Jered Gill MD Physical Therapy Treatment Note M2 PT-IP Current Condition Start: 04/27/23 16:08 Freq: NEEDED Status: Active Protocol: Document 04/27/23 15:11 AB (Rec: 04/27/23 16:24 AB [email or web address]) Physical Therapy Current Condition Current Condition Evaluation Date 04/27/23 Treatment Diagnosis diverticulitis s/p colectomy; difficulty in walking Onset Date 04/23/23 M3 PT-IP Subjective Start: 04/27/23 16:08 Freq: NEEDED Status: Active Protocol: Document 04/29/23 10:05 AB (Rec: 04/29/23 12:18 AB [email or web address]) Subjective Physical Therapy Visit Type Type Treatment Note Visit Start Time 10:05 Visit Stop Time 10:30 Total Visit Minutes 25 Number of MIS MANAGER Visits 0 Physical Therapy Visit Comments Patient Comments agreeable to do PT Therapy Pain Assessment Pain When Pain Assessed At Rest Pain Present Pain Present Pain Reported Location Abdomen Intensity 4 Scale Used Numeric (0 - 10) M4 PT-IP Mobility and Gait Start: 04/27/23 16:08 Freq: NEEDED Status: Active Protocol: Document 04/29/23 10:05 AB (Rec: 04/29/23 12:18 AB [id number]) PT-Bed Mobility Assessment Rolling Level of Assist Standby Assistance Supine to Sit Supine to Sit Standby Assistance,Head of Bed Elevated,Bedrails Sit to Supine Sit to Supine Standby Assistance,Head of Bed Elevated,Bedrails PT-Transfer Assessment Sit to and From Stand Sit to and from Stand Independent Equipment Transfer Assistive Device Gait Belt,Straight Cane Orthotic/Prosthetic Devices or Brace: No Comments Mobility Comments pt in bed and agreeable to do PT. completed log roll bed mobility SBA with HOB elevated and pt used bed rail. pt completed sit to stand mod I and ambulated in the hallway ~ 200ft using SPC SBA towards the stairs. completed up/down steps using SPC SBA. no LOB. pt ambulated more in the hallway ~ 500ft using SPC SBA and then back in the room. Assessed ambulation without AD and completed SBA 30 ft. pt ambulated to the toilet without AD and completed without assistance. informed pt regarding mobility level and pt is cleared to be independent in his room but informed nursing staff if he wants to walk in the hallway and to use SPC for safety for long distance ambulation. pt understood. also informed pt regarding d/c from PT and pt agreed. informed nurse Gait Assessment Gait Gait Assistance Required: Standby Assistance Distance (Feet) 500 Able to Maintain Weight Bearing Status Yes During Gait Assistive Devices Assistive Device None,Gait Belt,Straight Cane Orthotic/Prosthetic Devices or Brace: No Factors Limiting Gait Function Factors Limiting Gait Function Decreased Activity Tolerance Stair Climbing Assessment Evaluation Level of Assist On Stairs Standby Assistance Devices Stair Climbing Assistive Devices Straight Cane Technique/Endurance Stair Climbing Direction Ascend and Descend Stair Climbing Technique Step to Step Number of Steps Climbed 3 Stair Climbing Set # Repetitions (reps) 1 M5 PT-IP Objective Assessments Start: 04/27/23 16:08 Freq: NEEDED Status: Active Protocol: Document 04/27/23 15:11 AB (Rec: 04/27/23 16:24 AB [id number]) Orientation Orientation/Cognition Level of Alertness Alert Orientation Name,Place,Situation Language Function Ability No Deficits Noted Safety Awareness Decreased Safety Awareness Memory Description No Deficits Noted Gross Range of Motion Lower Extremity ROM Assessment Within Functional Limits Strength Lower Extremity Strength Assessment Within Functional Limits Muscle Tone Muscle Tone WNL Yes M6 PT-IP Treatment Start: 04/27/23 16:08 Freq: NEEDED Status: Active Protocol: Document 04/29/23 10:05 AB (Rec: 04/29/23 12:18 AB [id number]) Physical Therapy Treatment Education Education Provided Safety M7 PT-IP Assessment and Plan Start: 04/27/23 16:08 Freq: NEEDED Status: Active Protocol: Document 04/29/23 10:05 AB (Rec: 04/29/23 12:18 AB [email or web address]) PT Summary Assessment and Plan Summary Impairments Pain,ROM,Strength,Balance, Coordination,Sensation,Tone, Cognition,Bed Mobility, Transfers,Gait,Activity Tolerance Progress Towards Goals Progressing Toward Goals Assessment Summary pt progressing with PT. pt cleared to be independent with ambulation in his room without AD and to use SPC for long distance ambulation. No further PT needs. pt agreed. nurse and doctor informed. Frequency of Treatment Frequency Of Treatment Discharge Recommendations To Nursing Amount of Assist Needed Standby Assistance Discharge Recommendations PT Discharge Recommendations Home Transportation Needs at Discharge Private Vehicle
--- NOTE | 2023-04-29 11:16 | PM.PNPO.1 ---
Subjective Subjective Date Patient Seen: 04/29/23 Time Patient Seen: 11:16 Interval history: Pain control is significantly improved over the past 24 hours. Ambulatory around the unit. Tolerating a diet. Ostomy is functional. Exam Vital Signs (past 8 hours): - 04/29/23 07:00 04/29/23 08:31 04/29/23 08:31 Temperature 97.2 F L Pulse Rate 62 Respiratory Rate 16 Blood Pressure 133/79 Pulse Oximetry 97 97 Oxygen Delivery Method Room Air Room Air Oxygen Flow Rate 0 Oxygen Delivery Method Room Air Oxygen Flow Rate 0 Narrative Exam Narrative: General adult man alert oriented no acute distress Abdomen ileostomy pouch was removed ileostomy is well perfused and productive. Objective Labs 04/27/23 06:45 04/26/23 15:28 [facility] Medical History (Updated 04/26/23 @ 09:55 by Jered Gill MD) DDD (degenerative disc disease) Elevated liver enzymes Encounter for removal of sutures Encounter for screening for other viral diseases Encounter for screening for respiratory tuberculosis Facet arthropathy, lumbar Herniated nucleus pulposus, L2-3 left History of COVID-19 (10/2022) HTN (hypertension), benign Lumbar foraminal stenosis Lumbar radiculopathy Morbid obesity Nocturnal hypoxemia Obstructive sleep apnea of adult Primary insomnia Snoring TIA (transient ischemic attack) (~2008) Surgical History (Updated 04/17/23 @ 09:19 by Iman Vora RN) History of cardiac cath (~2017) History of cholecystectomy History of testicular surgery Hx of abdominal surgery Hx of colonoscopy (02/09/23) Family History Father Diabetes mellitus Cancer Mother No pertinent past surgical history Social History household members: friend(s) Smoking Status: Former smoker alcohol intake: current Assessment & Plan Post-op Postoperative Procedures: Procedures Operation Date: 04/25/23 07:45 Actual Procedure Side Surgeon p Laparoscopic Assisted Sigmoid Colectomy with diverting loop ileostomy Jered iGll MD Postoperative plan narrative: 62-year-old man postoperative day 4 status post sigmoid colectomy with diverting loop ileostomy for complicated diverticulitis. He is recovering from the operation appropriately and should be ready for discharge tomorrow.. He is tolerant of a diet ostomy is functional and he is ambulatory without physical therapy needs. -ostomy teaching -regular diet
--- NOTE | 2023-04-29 12:10 | CM.DPC ---
DCP Cont: Met with patient, introduced self and role. Confirmed that his friend will be picking him up tomorrow, approximately 11:00-11:15, he did tell Dr. Reveles, he wants to discharge early if possible. Confirmed that [facility] is being ordered. Nurse, Tiffanie, indicated that patient will be discharged home with a couple of supplies for new ostomy. Called over at [facility], for referral has been sent. Spoke to Dhiraj, confirmed that nursing can be out to the home on Monday, let him know that the referral has already been sent. P: DCP to continue to follow. Plan is most likely home tomorrow with [facility], RN, and P.T, O.T. are being ordered. Magaly Hernandez RN/Legal Records Clerk
[2023-04-29 16:55] VITALS: BP 142/84; PULSE 65; RESP 16; TEMP 35.8; O2SAT 98
[2023-04-29 20:32] VITALS: BP 137/87; PULSE 71; RESP 17; TEMP 36.2; O2SAT 96
[2023-04-29 20:44] VITALS: O2SAT 98
[2023-04-29] MEDS: ATORVASTATIN 20 MG TABLET 10 MG PO (20:50)
[2023-04-30] MEDS: SODIUM CHLORIDE 0.9% FLUSH 10 ML IV ×2 (00:09→09:08)
[2023-04-30] MEDS: HYDROMORPHONE 0.5 MG INJ IV (00:09)
[2023-04-30] MEDS: PANTOPRAZOLE DR 20 MG TABLET PO (06:24)
[2023-04-30] MEDS: HYDROCODONE/ACET 5/325 TABLET 2 TAB PO (06:24)
[2023-04-30 07:00] VITALS: BP 131/81; PULSE 71; RESP 18; TEMP 35.8; O2SAT 96
--- NOTE | 2023-04-30 08:28 | PC.NURSE ---
Patient is awake and eating his breakfast. States that he has been taught how to change and clean his ostomy. Stoma is beefy red and patient has been changing and emptying out the bag himself. He is planning on discharging home around 1100 today. Denies discomfort at this time.
[2023-04-30] MEDS: GABAPENTIN 400 MG CAPSULE PO (09:07)
[2023-04-30] MEDS: AMLODIPINE 5 MG TABLET 2.5 MG PO (09:07)
[2023-04-30] MEDS: ENOXAPARIN 40 MG/0.4 ML SYRINGE SUBCUT (09:08)
[2023-04-30] MEDS: SPIRONOLACTONE 25 MG TABLET PO (09:08)
[2023-04-30] MEDS: HYDROCODONE/ACET 5/325 TABLET 1 TAB PO (10:51)
--- NOTE | 2023-04-30 10:58 | P.DS_ITS ---
History of Present Illness History of Present Illness Date Patient Seen: 04/30/23 Time Patient Seen: 12:08 Chief complaint: acute abdominal pain, diverticulitis Narrative: 62-year-old male with chronic diverticulitis who was scheduled for an elective sigmoid colectomy is directly admitted to the hospital for p.o. antibiotic treatment failure Discharge Providers Provider Date of admission: 04/23/23 10:32 Discharge Date: 04/30/23 Primary care physician: Sunshine Saravia MD Consults: 04/26/23 09:53 Consult to Home Health Routine Comment: Reason For Exam: ileostomy 04/27/23 10:13 Consult to Physical Therapy Evaluate & Treat Comment: Physician Instructions: Evaluate and Treat 04/28/23 14:51 Consult to Home Health Routine Comment: Reason For Exam: home health upon discharge Discharge provider: Chandler Reveles MD Summary Hospital Course Discharge Diagnosis: Diverticulitis Hospital Course: Patient underwent a laparoscopic-assisted sigmoid colectomy with diverting ileostomy April 25, 2023. He had a unremarkable postoperative course. He had return of bowel function was ambulatory tolerant of a regular diet and his pain was adequately controlled with oral medication by the time of discharge. Exam Vital Signs (past 8 hours): - 04/30/23 08:22 04/30/23 07:00 Temperature 96.5 F L Pulse Rate 71 Respiratory Rate 18 Blood Pressure 131/81 Pulse Oximetry 96 Oxygen Delivery Method Room Air Oxygen Flow Rate 0 Oxygen Delivery Method Room Air Oxygen Flow Rate 0 Narrative Exam Narrative: General adult man alert oriented no acute distress Abdomen functional ileostomy. Abdominal midline incision with dressing in place clean intact. Objective Labs 04/27/23 06:45 04/26/23 15:28 [facility] Medical History (Updated 04/26/23 @ 09:55 by Jered Gill MD) DDD (degenerative disc disease) Elevated liver enzymes Encounter for removal of sutures Encounter for screening for other viral diseases Encounter for screening for respiratory tuberculosis Facet arthropathy, lumbar Herniated nucleus pulposus, L2-3 left History of COVID-19 (10/2022) HTN (hypertension), benign Lumbar foraminal stenosis Lumbar radiculopathy Morbid obesity Nocturnal hypoxemia Obstructive sleep apnea of adult Primary insomnia Snoring TIA (transient ischemic attack) (~2008) Surgical History (Updated 04/17/23 @ 09:19 by Iman Vora RN) History of cardiac cath (~2018) History of cholecystectomy History of testicular surgery Hx of abdominal surgery Hx of colonoscopy (02/09/23) Family History Father Diabetes mellitus Cancer Mother No pertinent past surgical history Social History household members: friend(s) Smoking Status: Former smoker alcohol intake: current Discharge Plan Discharge Plan Patient Disposition: Home Provider Discharge Comment: No lifting >20 lbs x 4 weeks No driving while taking narcotics F/U with Dr. Gill 2 weeks for staple removal Discharge orders & Medications Prescriptions: New ibuprofen 200 mg tablet 400 mg PO Q6H Qty: 60 0RF oxycodone 5 mg tablet 5 mg PO Q6H PRN (Reason: pain) Qty: 30 0RF acetaminophen [Tylenol] 325 mg capsule 650 mg PO QID PRN (Reason: pain) Qty: 60 0RF Continued neomycin 500 mg tablet 1 g PO TID Qty: 6 0RF Patient Comments: patient has not started taking this medication, was due to take it starting on 04/24/23 Rx Instructions: administer at 1 PM, 2 PM, and 10 PM the day prior to surgery atorvastatin 10 mg tablet 10 mg PO QPM omeprazole 20 mg capsule,delayed release(DR/EC) 20 mg PO QAM fenofibrate nanocrystallized 48 mg tablet 48 mg PO QAM cyclobenzaprine 10 mg tablet 10 mg PO TID PRN (Reason: muscle spasm) Qty: 21 0RF Patient Comments: hasn't had RX filled yet gabapentin 800 mg tablet 400 mg PO QAM Rx Instructions: 400 mg once a day spironolactone 25 mg tablet 25 mg PO QAM Qty: 30 5RF amlodipine 2.5 mg tablet 2.5 mg PO DAILY Qty: 30 12RF Discontinued ciprofloxacin HCl [Cipro] 500 mg tablet 500 mg PO BID Qty: 34 0RF Rx Instructions: continue both antibiotics until surgery metronidazole 500 mg tablet 500 mg PO TID Qty: 52 0RF Rx Instructions: cont. both antibiotics until surgery Follow up/Referrals: Jered Gill MD [Physician] - Sunshine Saravia MD [Primary Care Provider] - Skin/Wound/Dressing Care Report to your healthcare provider any signs of infection, such as:: chills, fever, increased pain, unusual drainage and unusual redness Visit Report/Discharge Packet Instructions: How to Care for Your Colostomy or Ileostomy, DI for Colectomy, DI for Laparoscopy, DI for Prescription Opioid Use, Oxycodone, DI for Colostomy or Ileostomy Reversal, Colostomy / Ileostomy, [facility]: Wound Care Stand Alone Forms: Patient Portal/API, Stroke Signs & Symptoms Discharge Data Primary Care Provider: Sunshine Saravia Discharges patient from system. Discharge Date/Time: 04/30/23 11:12
--- NOTE | 2023-04-30 11:56 | CM.DPC ---
DCP Cont: Patient is discharging home today. Contacted Dhiraj at [facility] and updated him. He had mentioned that nursing can come to [place] on Monday. Gave patient the [facility] brochure. Friends are transporting patient back to the [place]. Faxed over DC Summary, included orders and face to face. Patient left with some ostomy supplies. P: Patient is discharging home today with [facility] services, have updated Dhiraj at [place], and faxed DC Summary. Magaly Hernandez RN/Mash Filter Cloth Changer
== END 2023-04-30 11:12 | disposition home health service (06) | DRG 330 ==
PROVIDERS: Surgery; Admitting Provider Surgery; Family Provider Family Medicine; PCP Family Medicine; Referring Provider Surgery; Visit Provider Surgery
PROC: 0DTE0ZZ Resection of Large Intestine, Open Approach (ICD-10-PCS; principal; 2023-04-25 07:45)
DX: K57.32 Diverticulitis of large intestine without perforation or abscess without bleeding (principal); Z68.41 Body mass index [BMI] 40.0-44.9, adult; I10 Essential (primary) hypertension; E66.8 Other obesity; Z87.891 Personal history of nicotine dependence; E78.1 Pure hyperglyceridemia
CPT/HCPCS: 36415; 44204; 44213; 74019; 74177; 80048; 85025; 97116; 97162; 97530; C9290; J0295; J1170; J1650; J1885; J2405; J2543; J3010; Q9967

== ENCOUNTER 2023-05-05 22:31 | Observation (INO) | payer MEDICARE, MEDICAID, SELFPAY ==
[2023-05-05 22:42] VITALS: BP 132/85; PULSE 111; RESP 17; TEMP 36.2; O2SAT 93; BMI 41.3
--- NOTE | 2023-05-05 23:29 | PC.NURSE ---
cleaned skin around stoma, skin is irritated and has multiple open areas. applied a dusting with stoma powder and skin prep to area. Placed clostomy appliance over stroma.
[2023-05-05] MEDS: SODIUM CHLORIDE 0.9% 1,000 ML 1000 ML IV (23:30)
[2023-05-05 23:32] LABS: Add Manual Diff / Slide Review NO; Basophils Absolute Auto 100 /uL (0-100); Basophils Percent Auto 0.9 % (0-2); Eosinophils Absolute Auto 0 /uL (0-450); Eosinophils Percent Auto 0.1 % (2-4); Hematocrit 45.4 % (41-53); Hemoglobin 15.7 g/dL (13.5-17.5); Lymphocytes Absolute Auto 1900 /uL (1100-4500); Lymphocytes Percent Auto 16.2 % (25-40); Mean Corpuscular HGB Conc 34.6 % (30-36); Mean Corpuscular Volume 89.6 fL (80-100); Monocytes Absolute Auto 2000 /uL (0-900); Monocytes Percent Auto 17.6 % (3-14); Neutrophils Absolute Auto 7400 /uL (1500-7000); Neutrophils Percent Auto 65.2 % (50-75); Platelet Count 478 X10^3/uL (150-400); Red Blood Cell Count 5.06 X10^6/uL (4.5-5.9); White Blood Cell Count 11.4 X10^3/uL (4.5-11.0)
[2023-05-05 23:45] LABS: D Dimer 1610 ng/ml (<500)
[2023-05-05 23:47] LABS: COVID19 -Nasal RAPID POSITIVE (Negative)
[2023-05-05 23:48] LABS: Alanine Aminotransferase 78 IU/L (<50); Albumin 4.5 g/dL (3.5-5.0); Albumin Globulin Ratio 1.1 (1.0-2.8); Alkaline Phosphatase 127 U/L (38-126); Aspartate Aminotransferase 52 IU/L (17-59); BUN Creatinine Ratio 13.8 (6-22); Blood Urea Nitrogen 15 mg/dL (9-20); Calcium 9.4 mg/dL (8.4-10.2); Carbon Dioxide 19 mmol/L (22-32); Chloride 103 mmol/L (98-107); Estimated Glomerular Filt Rate > 60 mL/min (>60); Glucose 122 mg/dL (80-110); HEMOLYSIS < 15 (0-50); Lipase 205 U/L (23-300); Potassium 4.4 mmol/L (3.4-5.1); Sodium 134 mmol/L (137-145); Total Protein 8.5 g/dL (6.3-8.2)
[2023-05-05 23:49] LABS: Lactate (Lactic Acid) 1.6 mmol/L (0.7-2.1)
[2023-05-06] VITALS (23 sets, daily range): BP systolic 117–144; BP diastolic 72–88; PULSE 66–87; RESP 18–20; TEMP 36.6–36.8; O2SAT 94–97; BMI 41.3
--- NOTE | 2023-05-06 00:20 | DI.CT.S_ITS ---
PROCEDURE: CT ABDOMEN PELVIS W CON INDICATIONS: abd pain, recent abd surgery TECHNIQUE: After the administration of intravenous contrast, axial sections acquired from the lung bases to the pubic symphysis. Coronal and sagittal reformats were performed. For radiation dose reduction, the following was used: automated exposure control, adjustment of mA and/or kV according to patient size. COMPARISON: [facility], CT, CT ABDOMEN PELVIS W CON, 04/23/2023, 18:22. FINDINGS: Lower thorax: The lung bases are clear. Heart size normal. No hiatal hernia. Liver: Normal in size and attenuation. No contour deformity present. Biliary system: Cholecystectomy. No intra or extrahepatic bile duct dilation. Pancreas: Unremarkable without mass or inflammation evident. Spleen: Normal in size and density. Adrenals: Normal morphology and density. Reproductive system: Unremarkable as visualized. Urinary system: Normal renal size and attenuation. No renal calculi, hydronephrosis, or solid mass present. Urinary bladder unremarkable. Gastrointestinal system: Partial sigmoid resection with anastomosis and diverting right lower quadrant ileostomy. Postprocedural free air as well as localized edema and small amount of local in pelvic fluid is within expected limits. Additionally, there is persistent reactive wall thickening at the dome of the bladder which is nevertheless improved from the prior. Persistent left colon diverticuli Appendix: Normal appendix identified. No evidence of appendicitis. Peritoneal spaces: No mesenteric or retroperitoneal adenopathy. Vasculature: The IVC, aorta and iliac vasculature are unremarkable. Abdominal wall: Abdominal wall intact without evidence of ventral or inguinal hernias. Musculoskeletal: Normal bone mineralization. No acute fractures. IMPRESSION: Sigmoidectomy with anastomosis and right lower quadrant diverting ileostomy. Postprocedural pneumoperitoneum, local edema and minimal free fluid is within expected limits. Residual reactive wall thickening at the dome of the bladder has improved. Consider short-term interval follow-up, especially in the absence of clinical improvement. Note: Final report is concordant with preliminary interpretation by [facility] Approved by: Hesham Murray M.D. on 05/06/2023 at 9:17
--- NOTE | 2023-05-06 00:20 | DI.CT.S_ITS ---
PROCEDURE: CT ANGIO CHEST PE PROTOCOL INDICATIONS: 62-year-old male with chest pain, cough, recent colectomy TECHNIQUE: After the administration of intravenous contrast, 2 mm thick sections acquired from the pulmonary apices to the posterior costophrenic angles. MIP reformats of the arterial vasculature were utilized. For radiation dose reduction, the following was used: automated exposure control, adjustment of mA and/or kV according to patient size. COMPARISON: None. FINDINGS: Image quality: Excellent. Pulmonary arteries: Pulmonary arteries are normal in size, and demonstrate no intraluminal filling defects to suggest central pulmonary embolism. Lungs and pleura: Lungs are clear. No pleural effusions or pneumothorax. Central and peripheral airways are patent. Mediastinum: Heart size is normal, without pericardial effusion. No mediastinal or hilar adenopathy. Thoracic aorta is normal in caliber and enhancement. Esophagus is normal in caliber, without hiatal hernia. Bones and chest wall: No suspicious bony lesions. Ribs and thoracic spine appear intact throughout. Thyroid gland unremarkable. Old healed right-sided rib fractures noted. No axillary or supraclavicular adenopathy. Abdomen: Visualized upper abdominal solid organs appear normal in the early arterial phase of enhancement. Cholecystectomy IMPRESSION: No evidence of pulmonary embolism, aortic aneurysm or dissection. Note: Final report is concordant with preliminary interpretation by [facility], [employer] Approved by: Hesham Murray M.D. on 05/06/2023 at 8:58
--- NOTE | 2023-05-06 03:08 | ED.RECABL ---
HPI - Recheck/Abnormal Lab/Rx <Porter Darlingan, DO - Last Filed: 05/07/23 02:54> General Chief Complaint: Recheck/Abnormal Lab/Rx Stated Complaint: Surgery, Complications Time Seen by Provider: 05/05/23 22:40 Source: patient Mode of arrival: Ambulatory History of Present Illness HPI narrative: 62-year-old male with a history of complex diverticulitis, back problems and hypertension with recent elective surgery for sigmoid colectomy presents with a chief complaint of problems with his ostomy. The more we talked the more complex his presentation becomes. He states that he has had some upper respiratory complaints including nasal congestion, some sore throat and increasing cough with body aches for the past few days. He states that he has been developing some increasing lower abdominal pain, often times in the region of his ostomy. He has been having trouble managing his ostomy stating that it frequently does not adhere and the bag falls off at home. He was seen by the [facility] and they did not have appropriate supplies, he states that his bag fell off earlier today and for the past multiple hours he has been covering his ostomy with a towel. Related Data Home Medications Medication Instructions Recorded Confirmed gabapentin 800 mg tablet 400 mg PO QAM 04/18/23 05/06/23 atorvastatin 10 mg tablet 10 mg PO QPM 04/23/23 05/06/23 fenofibrate nanocrystallized 48 mg 48 mg PO QAM 04/23/23 05/06/23 tablet omeprazole 20 mg capsule,delayed 20 mg PO QAM 04/23/23 05/06/23 release Previous Rx's Medication Instructions Recorded cyclobenzaprine 10 mg tablet 10 mg PO TID PRN muscle spasm #21 12/26/22 tabs amlodipine 2.5 mg tablet 2.5 mg PO DAILY #30 tabs 04/07/23 spironolactone 25 mg tablet 25 mg PO QAM #30 tabs 04/21/23 oxycodone 5 mg tablet 5 mg PO Q6H PRN pain #30 tabs 04/29/23 Allergies Allergy/AdvReac Type Severity Reaction Status Date / Time tree and shrub pollen Allergy Mild Verified 04/25/23 07:17 duloxetine [From Cymbalta] AdvReac Unknown Disoriented Verified 04/25/23 07:17 hydrochlorothiazide AdvReac Unknown Patient Verified 04/25/23 07:17 unsure, possibly affected gallbladder Review of Systems <Porter Panda DO - Last Filed: 05/07/23 02:54> Review of Systems Narrative: GENERAL: See HPI HEENT: Denies sinus pain, ear pain, sore throat, difficulty swallowing, dizziness. RESPIRATORY: See HPI CARDIOVASCULAR: Denies chest pain, palpitations, orthopnea, edema, GASTROINTESTINAL: See HPI : Denies dysuria, frequency, incontinence, hematuria, urinary retention. MUSCULOSKELETAL: denies weakness, joint pain, or bony pain SKIN: Denies rash, skin lesions, or other NEUROLOGIC: Denies weakness, headache, numbness, change in speech, confusion, seizures, incoordination. PSYCHIATRIC: No concerning psychosocial issues. 12 point review of systems is negative except for those stated above Patient History <Porter Panda - Last Filed: 05/07/23 02:54> Medical History DDD (degenerative disc disease) Elevated liver enzymes Encounter for removal of sutures Encounter for screening for other viral diseases Encounter for screening for respiratory tuberculosis Facet arthropathy, lumbar Herniated nucleus pulposus, L2-3 left History of COVID-19 (10/2022) HTN (hypertension), benign Lumbar foraminal stenosis Lumbar radiculopathy Morbid obesity Nocturnal hypoxemia Obstructive sleep apnea of adult Primary insomnia Snoring TIA (transient ischemic attack) (~2008) Surgical History History of cardiac cath (~2017) History of cholecystectomy History of testicular surgery Hx of abdominal surgery Hx of colonoscopy (02/09/23) Family History Father Diabetes mellitus Cancer Mother No pertinent past surgical history Social History household members: friend(s) Smoking Status: Former smoker alcohol intake: current Smoking Status: Former smoker alcohol intake frequency: holidays/special occasions only Substance Use Type: marijuana Exam <Porter Panda DO - Last Filed: 05/07/23 02:54> Narrative Exam Narrative: GENERAL: [62] year old patient appears stated age. Well-developed patient, in mild distress. HEAD: Atraumatic. Normocephalic. EYES: Pupils equal round and reactive. Extraocular motions intact. No scleral icterus. No injection or drainage. ENT: Nose without bleeding, purulent drainage. Throat without erythema, tonsillar hypertrophy or exudate. Airway patent. NECK: Trachea midline. Non tender CARDIOVASCULAR: Regular rate and rhythm without murmurs, gallops, or rubs. RESPIRATORY: Clear to auscultation. Breath sounds equal bilaterally. No wheezes, rales, or rhonchi. GASTROINTESTINAL: Abdomen soft, tender across the lower abdomen with intact but subtle bowel sounds, central incision is clean, dry and intact, skin surrounding the ostomy is excoriated, erythematous and quite tender, stoma itself is erythematous and inflamed EXTREMITIES: No edema or joint tenderness. BACK: Nontender without deformity or crepitance. No flank tenderness. NEURO: AOx3. SKIN: No rash or erythema of visible areas Initial Vital Signs Initial Vital Signs: Vital Signs Temperature 97.2 F L 05/05/23 22:42 Pulse Rate 111 H 05/05/23 22:42 Respiratory Rate 17 05/05/23 22:42 Blood Pressure 132/85 05/05/23 22:42 Pulse Oximetry 93 05/05/23 22:42 Oxygen Delivery Method Room Air 05/05/23 22:42 <Tanika Contreras DO - Last Filed: 05/06/23 18:49> Initial Vital Signs Initial Vital Signs: Vital Signs Temperature 97.2 F L 05/05/23 22:42 Pulse Rate 111 H 05/05/23 22:42 Respiratory Rate 17 05/05/23 22:42 Blood Pressure 132/85 05/05/23 22:42 Pulse Oximetry 93 05/05/23 22:42 Oxygen Delivery Method Room Air 05/05/23 22:42 Course <Porter Panda DO - Last Filed: 05/07/23 02:54> Orders Ordered: Amlodipine Besylate (Amlodipine 5 Mg Tablet) 2.5 mg PO DAILY ELIZABETH Atorvastatin Calcium (Atorvastatin 20 Mg Tablet) 10 mg PO BEDTIME ELIZABETH Last Admin: 05/06/23 20:26 Dose: 10 mg Documented By: SR Benzocaine (Benzocaine/Menthol 1 Tory Pkt) 1 each PO Q1HR PRN PRN Reason: Sore Throat Last Admin: 05/06/23 11:40 Dose: 1 each Documented By: KAYCE Cyclobenzaprine HCl (Cyclobenzaprine 10 Mg Tablet) 10 mg PO TID PRN PRN Reason: muscle spasm Fenofibrate (Fenofibrate, Micronized 67 Mg Capsule) 67 mg PO DAILY ELIZABETH Gabapentin (Gabapentin 400 Mg Capsule) 400 mg PO DAILY ELIZABETH Naloxone HCl (Naloxone 0.4 Mg/Ml Vial) 0.2 mg IV Q2MIN PRN PRN Reason: Opiate Reversal Oxycodone HCl (Oxycodone Ir 5 Mg Tablet) 5 mg PO Q3HR PRN PRN Reason: Pain, Moderate (4-6) Last Admin: 05/06/23 20:26 Dose: 5 mg Documented By: Admin: 05/06/23 11:40 Dose: 5 mg Documented By: KAYCE Pantoprazole Sodium (Pantoprazole Dr 20 Mg Tablet) 20 mg PO 0600 ELIZABETH Spironolactone (Spironolactone 25 Mg Tablet) 25 mg PO DAILY ELIZABETH Discontinued Medications Sodium Chloride (Normal Saline 0.9%) 1,000 mls @ 1,000 mls/hr IV BOLUS ONE Stop: 05/05/23 23:59 Last Infusion: 05/06/23 01:06 Dose: 0 mls/hr Documented By: Admin: 05/05/23 23:30 Dose: 1,000 mls/hr Documented By: HNG Consultations Consultation #1: discussed with Dr. Roach (auto adjudication specialist gen surgery) she will see patient first thing in the morning to recommend disposition Vital Signs Vital signs: Vital Signs - 8 hr 05/05/23 22:42 05/06/23 01:11 05/06/23 01:12 Temperature 97.2 F L Pulse Rate 111 H 87 Respiratory Rate 17 Blood Pressure 132/85 Pulse Oximetry 93 95 94 Oxygen Delivery Method Room Air 05/06/23 01:12 05/06/23 01:30 05/06/23 01:30 Temperature Pulse Rate 84 Respiratory Rate Blood Pressure 133/77 120/77 Pulse Oximetry 94 Oxygen Delivery Method 05/06/23 02:17 05/06/23 02:18 05/06/23 02:18 Temperature Pulse Rate 80 80 Respiratory Rate Blood Pressure 133/78 Pulse Oximetry 97 97 Oxygen Delivery Method 05/06/23 02:30 05/06/23 03:00 Temperature Pulse Rate 80 78 Respiratory Rate Blood Pressure Pulse Oximetry 97 96 Oxygen Delivery Method <Tanika Contreras, DO - Last Filed: 05/06/23 18:49> Orders Ordered: Amlodipine Besylate (Amlodipine 5 Mg Tablet) 2.5 mg PO DAILY ELIZABETH Atorvastatin Calcium (Atorvastatin 20 Mg Tablet) 10 mg PO BEDTIME ELIZABETH Last Admin: 05/06/23 20:26 Dose: 10 mg Documented By: SR Benzocaine (Benzocaine/Menthol 1 Tory Pkt) 1 each PO Q1HR PRN PRN Reason: Sore Throat Last Admin: 05/06/23 11:40 Dose: 1 each Documented By: KAYCE Cyclobenzaprine HCl (Cyclobenzaprine 10 Mg Tablet) 10 mg PO TID PRN PRN Reason: muscle spasm Fenofibrate (Fenofibrate, Micronized 67 Mg Capsule) 67 mg PO DAILY ELIZABETH Gabapentin (Gabapentin 400 Mg Capsule) 400 mg PO DAILY ELIZABETH Naloxone HCl (Naloxone 0.4 Mg/Ml Vial) 0.2 mg IV Q2MIN PRN PRN Reason: Opiate Reversal Oxycodone HCl (Oxycodone Ir 5 Mg Tablet) 5 mg PO Q3HR PRN PRN Reason: Pain, Moderate (4-6) Last Admin: 05/06/23 20:26 Dose: 5 mg Documented By: Admin: 05/06/23 11:40 Dose: 5 mg Documented By: KAYCE Pantoprazole Sodium (Pantoprazole Dr 20 Mg Tablet) 20 mg PO 0600 ELIZABETH Spironolactone (Spironolactone 25 Mg Tablet) 25 mg PO DAILY ELIZABETH Discontinued Medications Sodium Chloride (Normal Saline 0.9%) 1,000 mls @ 1,000 mls/hr IV BOLUS ONE Stop: 05/05/23 23:59 Last Infusion: 05/06/23 01:06 Dose: 0 mls/hr Documented By: Admin: 05/05/23 23:30 Dose: 1,000 mls/hr Documented By: DAX Vital Signs Vital signs: Vital Signs - 8 hr 05/05/23 22:42 05/06/23 01:11 05/06/23 01:12 Temperature 97.2 F L Pulse Rate 111 H 87 Respiratory Rate 17 Blood Pressure 132/85 Pulse Oximetry 93 95 94 Oxygen Delivery Method Room Air 05/06/23 01:12 05/06/23 01:30 08/19/23 01:30 Temperature Pulse Rate 84 Respiratory Rate Blood Pressure 133/77 120/77 Pulse Oximetry 94 Oxygen Delivery Method 05/06/23 02:17 05/06/23 02:18 05/06/23 02:18 Temperature Pulse Rate 80 80 Respiratory Rate Blood Pressure 133/78 Pulse Oximetry 97 97 Oxygen Delivery Method 05/06/23 02:30 05/06/23 03:00 Temperature Pulse Rate 80 78 Respiratory Rate Blood Pressure Pulse Oximetry 97 96 Oxygen Delivery Method MDM - Recheck/Abnormal Lab/Rx <Porter Panda, DO - Last Filed: 05/07/23 02:54> Lab Data 05/05/23 23:20 05/05/23 23:20 Labs: Lab Results 05/05/23 05/05/23 05/05/23 Range/Units 23:20 23:20 23:20 WBC 11.4 H (4.5-11.0) X10^3/uL RBC 5.06 (4.5-5.9) X10^6/uL Hgb 15.7 (13.5-17.5) g/dL Hct 45.4 (41-53) % MCV 89.6 (80-100) fL MCH 31.0 (26-34) PG MCHC 34.6 (30-36) % RDW 14.0 (11.6-14.8) % Plt Count 478 H (150-400) X10^3/uL Neut % (Auto) 65.2 (50-75) % Lymph % (Auto) 16.2 L (25-40) % [place] % (Auto) 17.6 H (3-14) % Eos % (Auto) 0.1 L (2-4) % Baso % (Auto) 0.9 (0-2) % Neut # (Auto) 7400 H (2236-0033) /uL Lymph # (Auto) 1900 (6516-9968) /uL [place] # (Auto) 2000 H (0-900) /uL Eos # (Auto) 0 (0-450) /uL Baso # (Auto) 100 (0-100) /uL D-Dimer 1610 H (<500) ng/ml Sodium 134 L (137-145) mmol/L Potassium 4.4 (3.4-5.1) mmol/L Chloride 103 (98-107) mmol/L Carbon Dioxide 19 L (22-32) mmol/L BUN 15 (9-20) mg/dL Creatinine 1.09 (0.66-1.25) mg/dL Estimated GFR > 60 (>60) mL/min BUN/Creatinine Ratio 13.8 (6-22) Glucose 122 H (80-110) mg/dL Lactate (0.7-2.1) mmol/L Calcium 9.4 (8.4-10.2) mg/dL Magnesium 2.0 (1.6-2.3) mg/dL Total Bilirubin 1.0 (0.2-1.3) mg/dL AST 52 (17-59) IU/L ALT 78 H (<50) IU/L Alkaline Phosphatase 127 H (38-126) U/L Total Protein 8.5 H (6.3-8.2) g/dL Albumin 4.5 (3.5-5.0) g/dL Globulin 4.0 (1.7-4.1) g/dL Albumin/Globulin Ratio 1.1 (1.0-2.8) Lipase 205 (23-300) U/L SARS-CoV-2 (PCR) (Negative) 05/05/23 05/05/23 Range/Units 23:20 23:25 WBC (4.5-11.0) X10^3/uL RBC (4.5-5.9) X10^6/uL Hgb (13.5-17.5) g/dL Hct (41-53) % MCV (80-100) fL MCH (26-34) PG MCHC (30-36) % RDW (11.6-14.8) % Plt Count (150-400) X10^3/uL Neut % (Auto) (50-75) % Lymph % (Auto) (25-40) % [place] % (Auto) (3-14) % Eos % (Auto) (2-4) % Baso % (Auto) (0-2) % Neut # (Auto) (6651-8583) /uL Lymph # (Auto) (4715-2996) /uL [place] # (Auto) (0-900) /uL Eos # (Auto) (0-450) /uL Baso # (Auto) (0-100) /uL D-Dimer (<500) ng/ml Sodium (137-145) mmol/L Potassium (3.4-5.1) mmol/L Chloride (98-107) mmol/L Carbon Dioxide (22-32) mmol/L BUN (9-20) mg/dL Creatinine (0.66-1.25) mg/dL Estimated GFR (>60) mL/min BUN/Creatinine Ratio (6-22) Glucose (80-110) mg/dL Lactate 1.6 (0.7-2.1) mmol/L Calcium (8.4-10.2) mg/dL Magnesium (1.6-2.3) mg/dL Total Bilirubin (0.2-1.3) mg/dL AST (17-59) IU/L ALT (<50) IU/L Alkaline Phosphatase (38-126) U/L Total Protein (6.3-8.2) g/dL Albumin (3.5-5.0) g/dL Globulin (1.7-4.1) g/dL Albumin/Globulin Ratio (1.0-2.8) Lipase (23-300) U/L SARS-CoV-2 (PCR) Positive H (Negative) MDM Narrative Medical decision making narrative: 62-year-old male with extensive medical history and recent colectomy with diverting ostomy presents with ongoing difficulty with his ostomy. He is not septic, no significant abnormal findings on imaging but clinical picture is most consistent with infectious process and poor healing of stoma. Consult with General surgery (Dr. Roach), she will see patient early in the morning. Patient signed out to Dr. Contreras for final disposition pending this consultation <Tanika Contreras, - Last Filed: 05/06/23 18:49> Lab Data Labs: Lab Results 05/05/23 05/05/23 05/05/23 Range/Units 23:20 23:20 23:20 WBC 11.4 H (4.5-11.0) X10^3/uL RBC 5.06 (4.5-5.9) X10^6/uL Hgb 15.7 (13.5-17.5) g/dL Hct 45.4 (41-53) % MCV 89.6 (80-100) fL MCH 31.0 (26-34) PG MCHC 34.6 (30-36) % RDW 14.0 (11.6-14.8) % Plt Count 478 H (150-400) X10^3/uL Neut % (Auto) 65.2 (50-75) % Lymph % (Auto) 16.2 L (25-40) % [place] % (Auto) 17.6 H (3-14) % Eos % (Auto) 0.1 L (2-4) % Baso % (Auto) 0.9 (0-2) % Neut # (Auto) 7400 H (8673-9092) /uL Lymph # (Auto) 1900 (3165-1143) /uL [place] # (Auto) 2000 H (0-900) /uL Eos # (Auto) 0 (0-450) /uL Baso # (Auto) 100 (0-100) /uL D-Dimer 1610 H (<500) ng/ml Sodium 134 L (137-145) mmol/L Potassium 4.4 (3.4-5.1) mmol/L Chloride 103 (98-107) mmol/L Carbon Dioxide 19 L (22-32) mmol/L BUN 15 (9-20) mg/dL Creatinine 1.09 (0.66-1.25) mg/dL Estimated GFR > 60 (>60) mL/min BUN/Creatinine Ratio 13.8 (6-22) Glucose 122 H (80-110) mg/dL Lactate (0.7-2.1) mmol/L Calcium 9.4 (8.4-10.2) mg/dL Magnesium 2.0 (1.6-2.3) mg/dL Total Bilirubin 1.0 (0.2-1.3) mg/dL AST 52 (17-59) IU/L ALT 78 H (<50) IU/L Alkaline Phosphatase 127 H (38-126) U/L Total Protein 8.5 H (6.3-8.2) g/dL Albumin 4.5 (3.5-5.0) g/dL Globulin 4.0 (1.7-4.1) g/dL Albumin/Globulin Ratio 1.1 (1.0-2.8) Lipase 205 (23-300) U/L SARS-CoV-2 (PCR) (Negative) 05/05/23 05/05/23 Range/Units 23:20 23:25 WBC (4.5-11.0) X10^3/uL RBC (4.5-5.9) X10^6/uL Hgb (13.5-17.5) g/dL Hct (41-53) % MCV (80-100) fL MCH (26-34) PG MCHC (30-36) % RDW (11.6-14.8) % Plt Count (150-400) X10^3/uL Neut % (Auto) (50-75) % Lymph % (Auto) (25-40) % [place] % (Auto) (3-14) % Eos % (Auto) (2-4) % Baso % (Auto) (0-2) % Neut # (Auto) (4405-8519) /uL Lymph # (Auto) (3340-1522) /uL [place] # (Auto) (0-900) /uL Eos # (Auto) (0-450) /uL Baso # (Auto) (0-100) /uL D-Dimer (<500) ng/ml Sodium (137-145) mmol/L Potassium (3.4-5.1) mmol/L Chloride (98-107) mmol/L Carbon Dioxide (22-32) mmol/L BUN (9-20) mg/dL Creatinine (0.66-1.25) mg/dL Estimated GFR (>60) mL/min BUN/Creatinine Ratio (6-22) Glucose (80-110) mg/dL Lactate 1.6 (0.7-2.1) mmol/L Calcium (8.4-10.2) mg/dL Magnesium (1.6-2.3) mg/dL Total Bilirubin (0.2-1.3) mg/dL AST (17-59) IU/L ALT (<50) IU/L Alkaline Phosphatase (38-126) U/L Total Protein (6.3-8.2) g/dL Albumin (3.5-5.0) g/dL Globulin (1.7-4.1) g/dL Albumin/Globulin Ratio (1.0-2.8) Lipase (23-300) U/L SARS-CoV-2 (PCR) Positive H (Negative) MDM Narrative Medical decision making narrative: 62-year-old male with extensive medical history and recent colectomy with diverting ostomy presents with ongoing difficulty with his ostomy. He is not septic, no significant abnormal findings on imaging but clinical picture is most consistent with infectious process and poor healing of stoma. Consult with General surgery (Dr. Roach), she will see patient early in the morning. Patient signed out to Dr. Contreras for final disposition pending this consultation Dr. Contreras-Jaleesa did not see patient Dr. Roach quickly accepted them and they were transferred up stairs. Discharge Plan Departure Patient Disposition: Admitted As Inpatient Clinical Impression: Stoma dermatitis Admit Date/Time: 05/06/23 09:20 Admit Provider: Izzy Roach
--- NOTE | 2023-05-06 03:18 | PC.NURSE ---
colostomy wound pictures
--- NOTE | 2023-05-06 09:12 | P.PN_ITS ---
Subjective Subjective Date Patient Seen: 05/06/23 Time Patient Seen: 09:12 Interval history: Symptoms persist, labs and vitals are normal Exam Vital Signs (past 8 hours): - 05/06/23 01:30 05/06/23 01:30 05/06/23 02:17 Pulse Rate 84 80 Respiratory Rate Blood Pressure 120/77 Pulse Oximetry 94 97 Oxygen Delivery Method 05/06/23 02:18 05/06/23 02:18 05/06/23 02:30 Pulse Rate 80 80 Respiratory Rate Blood Pressure 133/78 Pulse Oximetry 97 97 Oxygen Delivery Method 05/06/23 03:00 05/06/23 03:30 05/06/23 04:00 Pulse Rate 78 75 73 Respiratory Rate Blood Pressure Pulse Oximetry 96 96 96 Oxygen Delivery Method Room Air 05/06/23 04:30 05/06/23 05:00 05/06/23 05:30 Pulse Rate 69 68 67 Respiratory Rate 20 Blood Pressure Pulse Oximetry 96 96 95 Oxygen Delivery Method 05/06/23 06:00 05/06/23 06:30 05/06/23 07:00 Pulse Rate 72 71 71 Respiratory Rate Blood Pressure Pulse Oximetry 97 95 97 Oxygen Delivery Method 05/06/23 07:30 05/06/23 08:00 05/06/23 08:30 Pulse Rate 68 69 66 Respiratory Rate Blood Pressure Pulse Oximetry 95 96 95 Oxygen Delivery Method 05/06/23 09:00 Pulse Rate 72 Respiratory Rate Blood Pressure Pulse Oximetry 96 Oxygen Delivery Method Oxygen Delivery Method Room Air Narrative Exam Narrative: Right lower quadrant tenderness, improved but not markedly Objective Labs 05/05/23 23:20 05/05/23 23:20 Labs: Laboratory Results - last 24 hr 05/05/23 05/05/23 05/05/23 23:20 23:20 23:20 WBC 11.4 H RBC 5.06 Hgb 15.7 Hct 45.4 MCV 89.6 MCH 31.0 MCHC 34.6 RDW 14.0 Plt Count 478 H Neut % (Auto) 65.2 Lymph % (Auto) 16.2 L [place] % (Auto) 17.6 H Eos % (Auto) 0.1 L Baso % (Auto) 0.9 Neut # (Auto) 7400 H Lymph # (Auto) 1900 [place] # (Auto) 2000 H Eos # (Auto) 0 Baso # (Auto) 100 D-Dimer 1610 H Sodium 134 L Potassium 4.4 Chloride 103 Carbon Dioxide 19 L BUN 15 Creatinine 1.09 Estimated GFR > 60 BUN/Creatinine Ratio 13.8 Glucose 122 H Lactate Calcium 9.4 Magnesium 2.0 Total Bilirubin 1.0 AST 52 ALT 78 H Alkaline Phosphatase 127 H Total Protein 8.5 H Albumin 4.5 Globulin 4.0 Albumin/Globulin Ratio 1.1 Lipase 205 SARS-CoV-2 (PCR) 05/05/23 05/05/23 23:20 23:25 WBC RBC Hgb Hct MCV MCH MCHC RDW Plt Count Neut % (Auto) Lymph % (Auto) [place] % (Auto) Eos % (Auto) Baso % (Auto) Neut # (Auto) Lymph # (Auto) [place] # (Auto) Eos # (Auto) Baso # (Auto) D-Dimer Sodium Potassium Chloride Carbon Dioxide BUN Creatinine Estimated GFR BUN/Creatinine Ratio Glucose Lactate 1.6 Calcium Magnesium Total Bilirubin AST ALT Alkaline Phosphatase Total Protein Albumin Globulin Albumin/Globulin Ratio Lipase SARS-CoV-2 (PCR) Positive H PFSH Medical History DDD (degenerative disc disease) Elevated liver enzymes Encounter for removal of sutures Encounter for screening for other viral diseases Encounter for screening for respiratory tuberculosis Facet arthropathy, lumbar Herniated nucleus pulposus, L2-3 left History of COVID-19 (10/2022) HTN (hypertension), benign Lumbar foraminal stenosis Lumbar radiculopathy Morbid obesity Nocturnal hypoxemia Obstructive sleep apnea of adult Primary insomnia Snoring TIA (transient ischemic attack) (~2008) Surgical History History of cardiac cath (~2017) History of cholecystectomy History of testicular surgery Hx of abdominal surgery Hx of colonoscopy (02/09/23) Family History Father Diabetes mellitus Cancer Mother No pertinent past surgical history Social History household members: friend(s) Smoking Status: Former smoker alcohol intake: current Assessment & Plan Assessment & Plan narrative: Ruptured appy Plan: lap appy Time Spent With Patient Time with patient: less than 30 minutes
--- NOTE | 2023-05-06 09:50 | PC.NURSE ---
Day shift: Pt in room from ED at approx 0935. He is A&Ox4 and has no complaints at this time. Stoma is putting out yellow liquid and the appliance appears to be functioning WNL. He is eating breakfast as well. VS WNL and RA 95%. Steady on feet and will be independent in room. Pt Covid + and precautions are in place.
[2023-05-06] MEDS: OXYCODONE IR 5 MG TABLET PO ×2 (11:40→20:26)
[2023-05-06] MEDS: BENZOCAINE/MENTHOL 1 LOZ PKT 1 EACH PO (11:40)
--- NOTE | 2023-05-06 12:10 | P.HP_ITS ---
History of Present Illness History of Present Illness Date Patient Seen: 05/06/23 Time Patient Seen: 12:10 Chief complaint: Surgery, Complications Narrative: Readmitted due to disfunctional stoma apparatus and dusky stoma with loss of surround skin integrity. Patient driven over by friend from [facility] where there was no access to medical supplies for his stoma. [facility] Medical History DDD (degenerative disc disease) Elevated liver enzymes Encounter for removal of sutures Encounter for screening for other viral diseases Encounter for screening for respiratory tuberculosis Facet arthropathy, lumbar Herniated nucleus pulposus, L2-3 left History of COVID-19 (10/2022) HTN (hypertension), benign Lumbar foraminal stenosis Lumbar radiculopathy Morbid obesity Nocturnal hypoxemia Obstructive sleep apnea of adult Primary insomnia Snoring TIA (transient ischemic attack) (~2008) Surgical History History of cardiac cath (~2017) History of cholecystectomy History of testicular surgery Hx of abdominal surgery Hx of colonoscopy (02/09/23) Family History Father Diabetes mellitus Cancer Mother No pertinent past surgical history Social History household members: friend(s) Smoking Status: Former smoker alcohol intake: current Meds Home Medications and Allergies Home Medications Medication Instructions Recorded Confirmed Type cyclobenzaprine 10 mg tablet 10 mg PO TID PRN muscle spasm #21 12/26/22 05/06/23 Rx tabs amlodipine 2.5 mg tablet 2.5 mg PO DAILY #30 tabs 04/07/23 05/06/23 Rx gabapentin 800 mg tablet 400 mg PO QAM 04/18/23 05/06/23 History spironolactone 25 mg tablet 25 mg PO QAM #30 tabs 04/21/23 05/06/23 Rx atorvastatin 10 mg tablet 10 mg PO QPM 04/23/23 05/06/23 History fenofibrate nanocrystallized 48 mg 48 mg PO QAM 04/23/23 05/06/23 History tablet omeprazole 20 mg capsule,delayed 20 mg PO QAM 04/23/23 05/06/23 History release oxycodone 5 mg tablet 5 mg PO Q6H PRN pain #30 tabs 04/29/23 05/06/23 Rx Allergies Allergy/AdvReac Type Severity Reaction Status Date / Time tree and shrub pollen Allergy Mild Verified 04/25/23 07:17 duloxetine [From Cymbalta] AdvReac Unknown Disoriented Verified 04/25/23 07:17 hydrochlorothiazide AdvReac Unknown Patient Verified 04/25/23 07:17 unsure, possibly affected gallbladder Review of Systems Review of Systems ROS: Yes All systems reviewed with the patient and are negative except as otherwise documented Exam Vital Signs (past 8 hours): - 05/06/23 04:30 05/06/23 05:00 05/06/23 05:30 Temperature Pulse Rate 69 68 67 Respiratory Rate 20 Blood Pressure Pulse Oximetry 96 96 95 Oxygen Delivery Method Oxygen Flow Rate 05/06/23 06:00 05/06/23 06:30 05/06/23 07:00 Temperature Pulse Rate 72 71 71 Respiratory Rate Blood Pressure Pulse Oximetry 97 95 97 Oxygen Delivery Method Oxygen Flow Rate 05/06/23 07:30 05/06/23 08:00 05/06/23 08:30 Temperature Pulse Rate 68 69 66 Respiratory Rate Blood Pressure Pulse Oximetry 95 96 95 Oxygen Delivery Method Oxygen Flow Rate 05/06/23 09:00 05/06/23 09:19 05/06/23 09:19 Temperature Pulse Rate 72 78 Respiratory Rate Blood Pressure 144/88 H Pulse Oximetry 96 95 Oxygen Delivery Method Oxygen Flow Rate 05/06/23 10:35 05/06/23 10:00 Temperature 97.8 F Pulse Rate 75 Respiratory Rate 19 Blood Pressure 117/72 Pulse Oximetry 96 94 Oxygen Delivery Method Room Air Oxygen Flow Rate 0 Oxygen Delivery Method Room Air Oxygen Flow Rate 0 Narrative Exam Narrative: Post surgical pain, Stoma functions and is retracted and dusky. surrounding skin irritated, standard ostomy supplies persistently leaking. Const General: cooperative and disheveled Nutritional Appearance: overweight HENMT Head: normocephalic and atraumatic Eyes General: appearance normal, both eyes and all related structures Sclera: sclerae normal Neck Neck: trachea midline Resp Effort & Inspection: normal respiratory effort and able to speak in complete sentences Cardio Rate: regular rate Rhythm: regular rhythm GI Inspection: obesity Palpation: soft Other: incision with greg and healing appropriately stoma dusky and retracted, but functioning. Neuro General: patient alert, patient awake and patient oriented x3 Psych Mental Status: mental status grossly normal Judgment: judgment good Objective Labs 05/05/23 23:20 05/05/23 23:20 Labs: Laboratory Results - last 24 hr 05/05/23 05/05/23 05/05/23 23:20 23:20 23:20 WBC 11.4 H RBC 5.06 Hgb 15.7 Hct 45.4 MCV 89.6 MCH 31.0 MCHC 34.6 RDW 14.0 Plt Count 478 H Neut % (Auto) 65.2 Lymph % (Auto) 16.2 L [place] % (Auto) 17.6 H Eos % (Auto) 0.1 L Baso % (Auto) 0.9 Neut # (Auto) 7400 H Lymph # (Auto) 1900 [place] # (Auto) 2000 H Eos # (Auto) 0 Baso # (Auto) 100 D-Dimer 1610 H Sodium 134 L Potassium 4.4 Chloride 103 Carbon Dioxide 19 L BUN 15 Creatinine 1.09 Estimated GFR > 60 BUN/Creatinine Ratio 13.8 Glucose 122 H Lactate Calcium 9.4 Magnesium 2.0 Total Bilirubin 1.0 AST 52 ALT 78 H Alkaline Phosphatase 127 H Total Protein 8.5 H Albumin 4.5 Globulin 4.0 Albumin/Globulin Ratio 1.1 Lipase 205 SARS-CoV-2 (PCR) 05/05/23 05/05/23 23:20 23:25 WBC RBC Hgb Hct MCV MCH MCHC RDW Plt Count Neut % (Auto) Lymph % (Auto) [place] % (Auto) Eos % (Auto) Baso % (Auto) Neut # (Auto) Lymph # (Auto) [place] # (Auto) Eos # (Auto) Baso # (Auto) D-Dimer Sodium Potassium Chloride Carbon Dioxide BUN Creatinine Estimated GFR BUN/Creatinine Ratio Glucose Lactate 1.6 Calcium Magnesium Total Bilirubin AST ALT Alkaline Phosphatase Total Protein Albumin Globulin Albumin/Globulin Ratio Lipase SARS-CoV-2 (PCR) Positive H Assessment & Plan Assessment & Plan narrative: Having technical difficulty with stoma. Repeat CT scan is interesting for scattered free air in pelvis concerning for compromised integrity of anastamosis but no breakdown (c/w with why diverting ileostoma was created) Obesity of abdominal wall is the reason for poor vascular supply and retraction, it should suffice until colocolonic anastamosis is healed. Plan: admit for observation and stoma care with antibiotics if indicated by fever or WBC Time Spent With Patient Time with patient: 30 to 49 minutes with 50% spent counseling/coordinating care
[2023-05-06] MEDS: ATORVASTATIN 20 MG TABLET 10 MG PO (20:26)
[2023-05-07] MEDS: PANTOPRAZOLE DR 20 MG TABLET PO (06:42)
[2023-05-07] MEDS: BENZOCAINE/MENTHOL 1 LOZ PKT 1 EACH PO (06:45)
[2023-05-07 07:00] VITALS: BP 118/78; PULSE 69; RESP 16; TEMP 36.4; O2SAT 100
[2023-05-07] MEDS: AMLODIPINE 5 MG TABLET 2.5 MG PO (09:20)
[2023-05-07] MEDS: SPIRONOLACTONE 25 MG TABLET PO (09:21)
[2023-05-07] MEDS: FENOFIBRATE, MICRONIZED 67 MG CAPSULE PO (09:21)
[2023-05-07] MEDS: GABAPENTIN 400 MG CAPSULE PO (09:21)
[2023-05-07 10:00] VITALS: O2SAT 100
--- NOTE | 2023-05-07 10:46 | P.PN_ITS ---
Subjective Subjective Date Patient Seen: 05/07/23 Time Patient Seen: 10:46 Interval history: feeling better, dry cough Exam Vital Signs (past 8 hours): - 05/07/23 07:00 05/07/23 10:00 Temperature 97.6 F Pulse Rate 69 Respiratory Rate 16 Blood Pressure 118/78 Pulse Oximetry 100 100 Oxygen Delivery Method Room Air Oxygen Flow Rate 0 0 Oxygen Delivery Method Room Air Oxygen Flow Rate 0 Narrative Exam Narrative: dry cough, no oxygen requirement, abdomen is benign, stoma functioning Objective Labs 05/05/23 23:20 05/05/23 23:20 [facility] Medical History DDD (degenerative disc disease) Elevated liver enzymes Encounter for removal of sutures Encounter for screening for other viral diseases Encounter for screening for respiratory tuberculosis Facet arthropathy, lumbar Herniated nucleus pulposus, L2-3 left History of COVID-19 (10/2022) HTN (hypertension), benign Lumbar foraminal stenosis Lumbar radiculopathy Morbid obesity Nocturnal hypoxemia Obstructive sleep apnea of adult Primary insomnia Snoring TIA (transient ischemic attack) (~2008) Surgical History History of cardiac cath (~2017) History of cholecystectomy History of testicular surgery Hx of abdominal surgery Hx of colonoscopy (02/09/23) Family History Father Diabetes mellitus Cancer Mother No pertinent past surgical history Social History household members: friend(s) Smoking Status: Former smoker alcohol intake: current Assessment & Plan Assessment & Plan narrative: Stoma dermatitis from malfunctioning stoma bags +Covid Plan: will be able to access better stoma supplies tomorrow, dermatitis already better supportive care for the Covid Time Spent With Patient Time with patient: less than 30 minutes
[2023-05-07] MEDS: OXYCODONE IR 5 MG TABLET PO ×3 (11:28→22:07)
[2023-05-07 11:44] VITALS: BP 122/81; PULSE 69
--- NOTE | 2023-05-07 14:55 | CM.DANOTE ---
Patient is a 62 yo male who was a REadmit on 05/06/23 for Post surgical complications from recent ostomy surgery. Pt also now COVID+ but asymptomatic. PCP: Sunshine Saravia Payer: [facility] Per Surgeon, pt had recent colonoscopy and recommendation was sigmoid resection which was scheduled for 04/25/23 and pt was recently discharged after that surgery on 04/30/23 with new ostomy and [facility]. Pt now with leaking ostomy and supply issues and may need additional surgical intervention to improve the ostomy/stoma. SW called pt due to COVID+ precautions and explained role and he confirms he still lives on [address] with 4 house mates and explains there are two in particular that could assist with shopping, meal prep transport etc if patient ever needed this. Pt does not use DME for ambulation at baseline and is active and independent with ADLs and drives. Pt confirms that Nirmal TILLMAN RN comes Tuesdays and for wound/ostomy care and did order his ostomy supplies which should have arrived yesterday 05/06/23 to [facility]. Pt states his housemates since he discharged home unfortunately are not capable/willing to assist with his ostomy care/dressing changes and therefore he has been attempting to do this himself and with the inability to fully suction he has leakage which has caused him to have to attempt dressing changes daily rather than every two days. SW inquired if he has any other friends or supports who could assist with dressing changes and pt states he only knows his housemates. SW and pt discussed possibly calling the [facility] to determine if any assist might be available on [place] for at least a week or two. SW discussed the barriers to SNF being his current COVID+ status and then [facility] likely would not auth SNF just for ostomy care as pt is mobile and independent. Pt states if needed, he could consider bringing his van off [address] and staying in [place] for outpt wound clinic care if really needed. TIFFANY called and left a msg with [facility] and faxed clinicals to review to alert them to pt's readmission since today is the weekend. Plan: SW to follow closely in the AM once pt's original surgeon rounds on the pt to determine if further surgical intervention needed for improved stoma and suction of supplies for improved healing and to call [facility] and discuss further with [facility] . NAVEEN Tomas Discharge Planning/Care Management CM Discharge Assessment Start: 05/07/23 14:52 Freq: Status: Active Protocol: Document 05/07/23 14:52 BF (Rec: 05/07/23 14:55 BF [id number]) Discharge Planning Assessment Assigned Resource Analyst NAVEEN White DPOA/Assigned Designee Name none Advance Directives? No Advance Directives on File No History Provided By Patient,Medical Record Has Patient been admitted in last 30 Yes days? Comment Readmit from new ostomy surg earlier this month Prior Living Arrangements House Household Members friend(s) Comment 4 housemates Type of transporation used prior to Drives own vehicle admit Independent with ADL's Yes Is patient alert and oriented? Yes Caregiver for Another No Patient/Family Preference Home with Home Health Comment Open with [facility] Barriers to Discharge No Comment Pending further Surgeon recommendations Discharge Plan Home with Home Health Transportation Arrangement Friend Referrals Initiated Home Health Additional Comment open with [facility] If patient plan is home with home health No: Resumption of [facility] : Has signed face to face form been completed? Whiteboard Updated in Patient Room with Yes name and ext. # of Resource Analyst Review Status In Process Please Provide Date Initial DC 05/07/23 Assessment Was Performed Next Review Type Continued Stay Review
[2023-05-07] MEDS: ATORVASTATIN 20 MG TABLET 10 MG PO (20:59)
[2023-05-07 21:00] VITALS: BP 120/74; PULSE 70; RESP 16; TEMP 36.6; O2SAT 95
[2023-05-07] MEDS: SODIUM CHLORIDE 0.9% FLUSH 10 ML IV (21:01)
[2023-05-08] MEDS: BENZOCAINE/MENTHOL 1 LOZ PKT 1 EACH PO ×3 (04:41→20:04)
[2023-05-08] MEDS: OXYCODONE IR 5 MG TABLET PO ×4 (04:41→20:04)
[2023-05-08] MEDS: PANTOPRAZOLE DR 20 MG TABLET PO (06:25)
[2023-05-08 08:00] VITALS: BP 115/79; PULSE 64; RESP 16; TEMP 36.4; O2SAT 96
[2023-05-08] MEDS: SPIRONOLACTONE 25 MG TABLET PO (08:40)
[2023-05-08] MEDS: FENOFIBRATE, MICRONIZED 67 MG CAPSULE PO (08:40)
[2023-05-08] MEDS: AMLODIPINE 5 MG TABLET 2.5 MG PO (08:40)
[2023-05-08] MEDS: GABAPENTIN 400 MG CAPSULE PO (08:40)
[2023-05-08] MEDS: SODIUM CHLORIDE 0.9% FLUSH 10 ML IV (08:42)
[2023-05-08 10:00] VITALS: O2SAT 96
--- NOTE | 2023-05-08 11:22 | CM.DPC ---
Addendum entered by Magaly Hernandez R.N. 05/08/23 12:08: Faxed referral over to [facility]. Their fax number is: [phone]. Included wound care orders. Have not yet heard back from Dhiraj at [facility] regarding status of supply delivery. Addendum entered by Magaly Hernandez R.N. 05/08/23 11:43: Did call over at [facility], they have openings but not until next week. Asked her if they see COVID patient, indicated that they have to have no symptoms for 5 days. She did give fax number of: [phone], to fax referral. Just found out that Inessa, ostomy nurse, does come to the wound clinic on Wednesdays. Archana at [facility] indicated that she can look up patient on [employer], will just need to add order for wound consult. At this time, patient may stay another day, surgeon, Dr. Mcgowan, may place patient on IV fluids. Original Note: DCP Cont: Called patient in his room, since he is positive for COVID. Asked him if any supplies had been delivered to his residence on [address]. Patient indicated that his room mates had told him that they had not yet received, supplies were supposed to have been delivered on Monday. Called Dhiraj at [facility], he is looking into the situation to see if item can be tracked. Asked him about teaching, and how comfortable that patient is with his stoma. Stated, still somewhat concerned, needs further teaching. Patient has a nurse from [facility] coming on Monday and . Called over at [facility], uncertain at this time if they do any type of ostomy teaching, last conversation that was had with Stacy at [facility], was that they did not have a stoma nurse. Left Stacy a message to confirm this. UR nurse, Lisa, confirmed with Dr. Mcgowan, surgeon, that no new surgical interventions will occur, will just be a matter of patient understanding of ostomy care. P: DCP to continue to follow. Patient remains OBS status, will receive further teaching, and Dhiraj at [facility] will follow up with nurse, to see if items can possibly be tracked. Magaly Hernandez RN/Backpackers Manager
--- NOTE | 2023-05-08 11:57 | DIET.CONS2 ---
Dietary Inpatient Consultation Note Admission Date: 05/06/2023 09:20 RD consulted for ostomy and stoma teaching for 62y M s/p ileostomy in early April. Please defer to nursing and wound care, including infusion supply company for teaching on stoma care/techniques. Diet: 05/06/23 Breakfast General (Regular) Diet Diet Modifications: Nutrition Percent Meal Consumed 100% 05/07/23 18:00 Percent Meal Consumed 100% 05/07/23 10:03 Percent Meal Consumed 75% 05/07/23 10:00 Percent Meal Consumed 100% 05/06/23 19:27 Percent Meal Consumed 100% 05/06/23 18:16 Electronically Signed by: Letty Mueller 05/08/23 11:57 Clinical Dietitian [address] [id number]
--- NOTE | 2023-05-08 14:09 | PM.PN.1 ---
Subjective Subjective Date Patient Seen: 05/08/23 Time Patient Seen: 14:09 Interval history: Feeling well. His new ostomy seems to be holding up for the time being. Exam Vital Signs (past 8 hours): - 05/08/23 08:00 05/08/23 10:00 Temperature 97.5 F L Pulse Rate 64 Respiratory Rate 16 Blood Pressure 115/79 Pulse Oximetry 96 96 Oxygen Delivery Method Room Air Oxygen Flow Rate 0 Narrative Exam Narrative: Well-healed surgical scar The ileostomy is functional. It is not possible to visualize the mucosa at this time Objective Labs 05/05/23 23:20 05/05/23 23:20 [facility] Medical History DDD (degenerative disc disease) Elevated liver enzymes Encounter for removal of sutures Encounter for screening for other viral diseases Encounter for screening for respiratory tuberculosis Facet arthropathy, lumbar Herniated nucleus pulposus, L2-3 left History of COVID-19 (10/2022) HTN (hypertension), benign Lumbar foraminal stenosis Lumbar radiculopathy Morbid obesity Nocturnal hypoxemia Obstructive sleep apnea of adult Primary insomnia Snoring TIA (transient ischemic attack) (~2008) Surgical History History of cardiac cath (~2017) History of cholecystectomy History of testicular surgery Hx of abdominal surgery Hx of colonoscopy (02/09/23) Family History Father Diabetes mellitus Cancer Mother No pertinent past surgical history Social History household members: friend(s) Smoking Status: Former smoker alcohol intake: current Assessment & Plan Assessment and plan (1) Stoma dermatitis: Status: Acute Plan We will wait to hear from the wound care center to see if they can help out with his stoma management. We will remove his skin greg We will give him some IV fluid resuscitation while he is here.
[2023-05-08] MEDS: LACTATED RINGERS 1,000 ML 125 ML IV ×2 (15:58→23:57)
--- NOTE | 2023-05-08 16:53 | PC.NURSE ---
Day shift: This RN removed patient's greg in his midline abdominal incision, per MD Gill's instructions. Pt tolerated this well, 5mg oxy given 30 min prior. Pt started on LR @ 125 for maintenance fluids - MD requested for adequate hydration. In contact with Stacy from [facility] wound [facility] today - tentative plan for battery loader to come to see patient at 1630 tomorrow for ostomy teaching. Left Stacy a message this evening to confirm. Left message for care management team as well letting them know and asked them to follow up with patient about coordinating care getting home and to the [facility]. Sudha Y also aware as she was working with Stacy today and she stated she will call Stacy in the am. Encouraged patient to move around as much as he is able. Encouraged patient to walk in room - patient covid positive so unable to ambulate in the halls. Patient states he has a sore throat, but no other covid symptoms. Ostomy bag still in place and adhering well. Liquid brown output. Will continue to monitor.
[2023-05-08 19:00] VITALS: BP 134/82; PULSE 69; RESP 18; TEMP 36.6; O2SAT 96
[2023-05-08] MEDS: ATORVASTATIN 20 MG TABLET 10 MG PO (20:03)
[2023-05-08] MEDS: CYCLOBENZAPRINE 10 MG TABLET PO (20:04)
[2023-05-09] MEDS: PANTOPRAZOLE DR 20 MG TABLET PO (05:18)
[2023-05-09 08:20] VITALS: BP 133/78; PULSE 65; RESP 17; TEMP 36.4; O2SAT 96
[2023-05-09] MEDS: SPIRONOLACTONE 25 MG TABLET PO (09:47)
[2023-05-09] MEDS: OXYCODONE IR 5 MG TABLET PO ×2 (09:47→16:01)
[2023-05-09] MEDS: FENOFIBRATE, MICRONIZED 67 MG CAPSULE PO (09:47)
[2023-05-09] MEDS: LACTATED RINGERS 1,000 ML 125 ML IV (09:47)
[2023-05-09] MEDS: GABAPENTIN 400 MG CAPSULE PO (09:48)
[2023-05-09] MEDS: SODIUM CHLORIDE 0.9% FLUSH 10 ML IV (09:48)
[2023-05-09] MEDS: AMLODIPINE 5 MG TABLET 2.5 MG PO (09:48)
[2023-05-09 10:00] VITALS: O2SAT 96
[2023-05-09 12:07] LABS: Alanine Aminotransferase 50 IU/L (<50); Albumin 3.8 g/dL (3.5-5.0); Albumin Globulin Ratio 1.2 (1.0-2.8); Alkaline Phosphatase 90 U/L (38-126); Aspartate Aminotransferase 31 IU/L (17-59); BUN Creatinine Ratio 11.9 (6-22); Blood Urea Nitrogen 10 mg/dL (9-20); Calcium 8.7 mg/dL (8.4-10.2); Carbon Dioxide 26 mmol/L (22-32); Chloride 101 mmol/L (98-107); Estimated Glomerular Filt Rate > 60 mL/min (>60); Globulin 3.1 g/dL (1.7-4.1); Glucose 109 mg/dL (80-110); HEMOLYSIS < 15 (0-50); Sodium 134 mmol/L (137-145); Total Protein 6.9 g/dL (6.3-8.2)
[2023-05-09 12:17] LABS: Acinetobacter calcoa-baumannii Not Detected (Not Detect); Bacteroides fragilis Not Detected (Not Detect); Candida albicans Not Detected (Not Detect); Candida auris Not Detected (Not Detect); Candida glabrata Not Detected (Not Detect); Candida krusei Not Detected (Not Detect); Candida parapsilosis Not Detected (Not Detect); Candida tropicalis Not Detected (Not Detect); Cryptococcus neoformans/gatti Not Detected (Not Detect); Enterobacter cloacae complex Not Detected (Not Detect); Enterobacterales Not Detected (Not Detect); Enterococcus faecalis Not Detected (Not Detect); Enterococcus faecium Not Detected (Not Detect); Haemophilus influenzae Not Detected (Not Detect); Klebsiella aerogenes Not Detected (Not Detect); Listeria monocytogenes Not Detected (Not Detect); Neisseria meningitidis Not Detected (Not Detect); Proteus species Not Detected (Not Detect); Pseudomonas aeruginosa Not Detected (Not Detect); Salmonella species Not Detected (Not Detect); Serratia marcescens Not Detected (Not Detect); Staphylococcus epidermidis Not Detected (Not Detect); Staphylococcus lugdunensis Not Detected (Not Detect); Staphylococcus species Not Detected (Not Detect); Stenotrophomonas maltophilia Not Detected (Not Detect); Streptococcus agalactiae (Gr B Not Detected (Not Detect); Streptococcus pneumonia Not Detected (Not Detect); Streptococcus pyogenes (Gr A) Not Detected (Not Detect); Streptococcus species Not Detected (Not Detect)
--- NOTE | 2023-05-09 13:41 | CM.DPC ---
DCP Cont: Inessa Mock RN, ostomy specialist, is to be coming up here to see patient at about 1630, for ostomy teaching. Plan is for him to discharge afterward, friend should be picking [place]. Have not yet contacted [facility], for there are no discharge orders as of yet. Did notice positive blood culture as well, there is no surgical note for today as of yet. Final sensitivities are pending, to see if patient would be able to go on oral ABO. DC Planning will follow closely. P: DCP to follow closely, patient could discharge later today after ostomy consult, will also await results of sensitivities. Will ensure that [facility] is updated. Magaly Hernandez RN/Spot Man
--- NOTE | 2023-06-01 16:24 | P.DS_ITS ---
History of Present Illness History of Present Illness Chief complaint: Surgery, Complications Discharge Providers Provider Date of admission: 05/06/23 09:20 Discharge Date: 05/09/23 Primary care physician: Sunshine Saravia MD Consults: 05/07/23 09:15 Consult to Dietitian, Adult Urgent Comment: needs better supplies and teaching for ileostomy Reason For Exam: stoma care and teaching Consult to Wound Care Routine Comment: Consulting Provider: [facility] Discharge provider: Jered Gill MD Summary Hospital Course Discharge Diagnosis: Ileostomy status Hospital Course: The patient was admitted because of difficulty with his ileostomy care. He showed no signs of dehydration. His ileostomy appliance was changed and he was given more instruction while he was in the hospital. Was discharged with plans to follow up with a stoma therapist. Exam Vital Signs (past 8 hours): Oxygen Delivery Method Room Air Oxygen Flow Rate 0 Objective Labs 05/05/23 23:20 05/09/23 11:30 [facility] Medical History DDD (degenerative disc disease) Elevated liver enzymes Encounter for removal of sutures Encounter for screening for other viral diseases Encounter for screening for respiratory tuberculosis Facet arthropathy, lumbar Herniated nucleus pulposus, L2-3 left History of COVID-19 (10/2022) HTN (hypertension), benign Lumbar foraminal stenosis Lumbar radiculopathy Morbid obesity Nocturnal hypoxemia Obstructive sleep apnea of adult Primary insomnia Snoring TIA (transient ischemic attack) (~2008) Surgical History History of cardiac cath (~2017) History of cholecystectomy History of testicular surgery Hx of abdominal surgery Hx of colonoscopy (02/09/23) Family History Father Diabetes mellitus Cancer Mother No pertinent past surgical history Social History household members: friend(s) Smoking Status: Former smoker alcohol intake: current Discharge Plan Discharge Plan Patient Disposition: Home Discharge orders & Medications Prescriptions: Continued atorvastatin 10 mg tablet 10 mg PO QPM omeprazole 20 mg capsule,delayed release(DR/EC) 20 mg PO QAM fenofibrate nanocrystallized 48 mg tablet 48 mg PO QAM oxycodone 5 mg tablet 5 mg PO Q6H PRN (Reason: pain) Qty: 30 0RF cyclobenzaprine 10 mg tablet 10 mg PO TID PRN (Reason: muscle spasm) Qty: 21 0RF Patient Comments: hasn't had RX filled yet gabapentin 800 mg tablet 400 mg PO QAM Rx Instructions: 400 mg once a day spironolactone 25 mg tablet 25 mg PO QAM Qty: 30 5RF amlodipine 2.5 mg tablet 2.5 mg PO DAILY Qty: 30 12RF Follow up/Referrals: Sunshine Saravia MD [Primary Care Provider] - Visit Report/Discharge Packet Instructions: How to Care for Your Colostomy or Ileostomy, Colostomy / Ileostomy Stand Alone Forms: Patient Portal/API, Stroke Signs & Symptoms Discharge Data Primary Care Provider: Sunshine Saravia Attending Provider: Izzy Roach Admit Date/Time: 05/06/23 09:20 Discharges patient from system. Discharge Date/Time: 05/09/23 18:21
== END 2023-05-09 18:21 | disposition home or self-care (01) ==
LOC: ED 05-06 08:40 → AC 05-06 09:21
PROVIDERS: Emergency Medicine; Surgery; Admitting Provider Surgery; Emergency Provider Emergency Medicine; Family Provider Family Medicine; PCP Family Medicine; Referring Provider Emergency Medicine; Visit Provider Surgery
DX: K94.09 Other complications of colostomy (principal); L30.8 Other specified dermatitis; Z98.0 Intestinal bypass and anastomosis status; E66.01 Morbid (severe) obesity due to excess calories
CPT/HCPCS: 36415; 71275; 74177; 80053; 83605; 83690; 83735; 85025; 85379; 87040; 87154; 87635; 96360; 96361; 99284; C9803; G0378; Q9967

== ENCOUNTER 2023-05-12 21:36 | Emergency (ER) | payer MEDICARE, MEDICAID, SELFPAY ==
[2023-05-12 12:30] VITALS: BMI 41.3
[2023-05-12 21:47] VITALS: BP 166/94; PULSE 74; RESP 20; TEMP 36.4; O2SAT 96; BMI 39.4
--- NOTE | 2023-05-12 22:22 | ED.GENADULT ---
HPI - General Adult General Chief complaint: Abdominal Pain Stated complaint: colostomy infection Time Seen by Provider: 05/12/23 21:45 Source: patient and EMS Mode of arrival: EMS History of Present Illness HPI narrative: Patient is a 62-year-old male who recently had a partial colectomy and has a colostomy. Has been having issues with the area leaking while at home. He was flown off of [facility] for concerns of potential infection. Patient states he is having difficulty taking care this at home. He states he is having difficulty keeping the cover sticking to his skin. There is redness around the skin. He was seen here in the emergency department recently and was diagnosed with a dermatitis. No fevers. Related Data Home Medications Medication Instructions Recorded Confirmed gabapentin 800 mg tablet 400 mg PO QAM 04/18/23 05/06/23 atorvastatin 10 mg tablet 10 mg PO QPM 04/23/23 05/06/23 fenofibrate nanocrystallized 48 mg 48 mg PO QAM 04/23/23 05/06/23 tablet omeprazole 20 mg capsule,delayed 20 mg PO QAM 04/23/23 05/06/23 release Previous Rx's Medication Instructions Recorded cyclobenzaprine 10 mg tablet 10 mg PO TID PRN muscle spasm #21 12/26/22 tabs amlodipine 2.5 mg tablet 2.5 mg PO DAILY #30 tabs 04/07/23 spironolactone 25 mg tablet 25 mg PO QAM #30 tabs 04/21/23 oxycodone 5 mg tablet 5 mg PO Q6H PRN pain #30 tabs 04/29/23 Allergies Allergy/AdvReac Type Severity Reaction Status Date / Time tree and shrub pollen Allergy Mild Verified 04/25/23 07:17 duloxetine [From Cymbalta] AdvReac Unknown Disoriented Verified 04/25/23 07:17 hydrochlorothiazide AdvReac Unknown Patient Verified 04/25/23 07:17 unsure, possibly affected gallbladder Review of Systems Constitutional Constitutional: Reports system reviewed and no additional complaints, except as documented Gastrointestinal Gastrointestinal: Reports system reviewed and no additional complaints, except as documented Integumentary/Breasts Skin/Breast: Reports system reviewed and no additional complaints, except as documented Patient History Medical History DDD (degenerative disc disease) Elevated liver enzymes Encounter for removal of sutures Encounter for screening for other viral diseases Encounter for screening for respiratory tuberculosis Facet arthropathy, lumbar Herniated nucleus pulposus, L2-3 left History of COVID-19 (10/2022) HTN (hypertension), benign Lumbar foraminal stenosis Lumbar radiculopathy Morbid obesity Nocturnal hypoxemia Obstructive sleep apnea of adult Primary insomnia Snoring TIA (transient ischemic attack) (~2008) Surgical History History of cardiac cath (~2017) History of cholecystectomy History of testicular surgery Hx of abdominal surgery Hx of colonoscopy (02/09/23) Family History Father Diabetes mellitus Cancer Mother No pertinent past surgical history Social History household members: friend(s) Smoking Status: Former smoker alcohol intake: current Smoking Status: Former smoker alcohol intake frequency: holidays/special occasions only Substance Use Type: marijuana Exam Initial Vital Signs Initial Vital Signs: Vital Signs Temperature 97.5 F L 05/12/23 21:47 Pulse Rate 74 05/12/23 21:47 Respiratory Rate 20 05/12/23 21:47 Blood Pressure 166/94 H 05/12/23 21:47 Pulse Oximetry 96 05/12/23 21:47 Oxygen Delivery Method Room Air 05/12/23 21:47 Const General: No ill appearing HENMT Head: normal to inspection and normocephalic GI Other: Surgical incision midline abdomen, colostomy right side abdomen. No abdominal distention Skin Other: Surgical incision midline abdomen appears well without signs of infection. Colostomy and right side of his abdomen appears well. There is no duskiness to the mucosal tissue. There is redness around the ostomy in extending on the skin outside of this that is most consistent with a dermatitis. I have low suspicion that this is a cellulitis. Neuro General: patient alert and patient awake Course Vital Signs Vital signs: Vital Signs - 8 hr 05/12/23 21:47 Temperature 97.5 F L Pulse Rate 74 Respiratory Rate 20 Blood Pressure 166/94 H Pulse Oximetry 96 Oxygen Delivery Method Room Air Medical Decision Making Medical Records Medical records reviewed: Yes I reviewed the patient's medical records. MDM Narrative Medical decision making narrative: The ostomy itself actually looks well however the skin around it has quite a bit of dermatitis most likely from the caustic nature of the stool that is coming from the ostomy. Unfortunately this is extending past the area where the sticky portion of the ostomy bandage adhering to the skin. Unfortunately we also do not have any larger ostomy bandages available to us. I did discuss the case with Dr. Reveles who is the general surgeon on-call. He stated that there is not much that we can do over the weekend or at this facility. He stated that the patient may need a referral to see wound care at [facility] as they have specific ostomy services there. Attempted to find their phone number but was unable to do so. I had a discussion with the patient regarding this. There was not much more we can offer him out of the emergency department specifically on Monday evening. We put barrier cream down and a new ostomy bandage and reinforced it as best we could. He was going to have to deal with this situation at home over the weekend and talk with the surgeon on Monday about a referral to see wound care. Patient does not require admission to the hospital. Discharge Plan Departure Patient Disposition: Home Clinical Impression: Colostomy complication, Dermatitis Instructions: Contact Dermatitis Activity Restrictions/Additional Instructions: Unfortunately we are very limited on what we can do out of the emergency department. The redness that is around the ostomy is what we called dermatitis and it is because of the stool that is coming from the ostomy. I did discuss your case with the on-call general surgeon. They stated that there maybe a Wound Care Service at [facility] that maybe helpful for your situation however this is not something that is going to be able to happen over the weekend. I did send an e-mail to Dr. Gill about your situation and hopefully on Monday something can be done about a referral for you to go see the wound care service at [facility]. Follow all of the postoperative instructions given to you by the general surgeons. Prescriptions: No Action atorvastatin 10 mg tablet 10 mg PO QPM omeprazole 20 mg capsule,delayed release(DR/EC) 20 mg PO QAM fenofibrate nanocrystallized 48 mg tablet 48 mg PO QAM oxycodone 5 mg tablet 5 mg PO Q6H PRN (Reason: pain) Qty: 30 0RF cyclobenzaprine 10 mg tablet 10 mg PO TID PRN (Reason: muscle spasm) Qty: 21 0RF Patient Comments: hasn't had RX filled yet gabapentin 800 mg tablet 400 mg PO QAM Rx Instructions: 400 mg once a day spironolactone 25 mg tablet 25 mg PO QAM Qty: 30 5RF amlodipine 2.5 mg tablet 2.5 mg PO DAILY Qty: 30 12RF Referrals: Sunshine Saravia MD [Primary Care Provider] - Stand Alone Forms: Patient Portal/API
--- NOTE | 2023-05-13 | PC.NURSE ---
Skin around stoma cleaned with warm water and mild soap. Area allowed to dry. Stoma red and surrounding skin appears red and irritated with many areas to right of stoma site open and weeping. Skin is tender and patient reports burning when barrier cream applied. Barrier cream removed and barrier powder used, patient reports less irritating with powder. New ostomy appliance applied to stoma and adhesives reinforced with Opsite dressing. some leaking of gastric fluids seen coming through appliance adhesive and Opsite dressing, so Tegaderms used to reinforce. Patient is up for discharge at this time, but has missed last ferry back to home on [facility]. Patient report he does not have any support in area to come get him and he does not have money for a hotel. Patient states he also does not have money to pay for cab ride to ferry or for a ferry ticket. Patient is unsure how he is going to get home. Staff provided patient with blankets and let him rest in room. Plan to reevaluate ways to get patient home come morning when more resources may be available.
[2023-05-13 04:37] VITALS: BP 127/85; PULSE 73; RESP 16; TEMP 37.1; O2SAT 95
[2023-05-13 11:30] VITALS: BP 133/92; PULSE 79; RESP 22; O2SAT 96
--- NOTE | 2023-05-13 11:30 | PC.NURSE ---
Pt's ostomy was replaced and sealed with tegaderm, ostomy paste, and seal. No leaking at this time.
== END 2023-05-13 11:40 | disposition home or self-care (01) ==
LOC: ED 23:56 → AC 05-13 04:43
PROVIDERS: Emergency Provider Emergency Medicine; Family Provider Family Medicine; PCP Family Medicine; Referring Provider Emergency Medicine
DX: K94.09 Other complications of colostomy (principal); L25.9 Unspecified contact dermatitis, unspecified cause
CPT/HCPCS: 99281; 99282; 99283

== ENCOUNTER → 2023-06-26 11:57 | Outpatient (CLI) | payer MEDICARE, MEDICAID, SELFPAY ==
--- NOTE | 2023-06-26 11:58 | DI.RAD.S_ITS ---
PROCEDURE: FL BARIUM ENEMA INDICATIONS: evaluate colorectal anastomosis COMPARISON: [facility], CT, CT ABDOMEN PELVIS WITHOUT CONTRAST, 05/15/2023, 18:17. FINDINGS: KUB: Cholecystectomy clips. 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 No suspicious abdominal calcifications. No suspicious bony lesions. Colon: The colorectal anastomosis is located in the midline pelvis on the prior CT. There is adequate opacification of the entire colon. No strictures or extrinsic mass effects are identified. No colonic fistulae or perforations. Colon caliber appears normal. Diverticulosis. IMPRESSION: No contrast leak at the colorectal anastomosis. Diverticulosis. Dictated by: Isaac Gayle M.D. on 06/26/2023 at 16:29 Approved by: Isaac Gayle M.D. on 06/26/2023 at 16:33
== END ==
PROVIDERS: Family Provider Family Medicine; PCP Family Medicine; Referring Provider Surgery; Visit Provider Surgery
DX: Z90.49 Acquired absence of other specified parts of digestive tract (principal); K57.90 Diverticulosis of intestine, part unspecified, without perforation or abscess without bleeding
CPT/HCPCS: 74270

== ENCOUNTER 2023-07-11 09:23 | Inpatient (IN) | payer MEDICARE, MEDICAID, SELFPAY ==
[2023-07-06 12:05] VITALS: BMI 38.2
[2023-07-11] VITALS (9 sets, daily range): BP systolic 119–173; BP diastolic 68–99; PULSE 73–97; RESP 8–18; TEMP 36.2–36.9; O2SAT 88–98; BMI 38.2
[2023-07-11] MEDS: ACETAMINOPHEN 325 MG TABLET 650 MG PO ×2 (11:37→18:35)
[2023-07-11] MEDS: LACTATED RINGERS 1,000 ML 120 ML IV (11:51)
--- NOTE | 2023-07-11 12:30 | PM.HP.1 ---
History of Present Illness History of Present Illness Date Patient Seen: 07/11/23 Time Patient Seen: 12:30 Chief complaint: Colostomy Closure Narrative: Jerry is a 63 year old man with a diverting loop ileostomy following a sigmoid resection for diverticulitis. He has lost over 20 lbs since his last surgery through daily walking. See the prior telephone encounter for details. [facility] Medical History DDD (degenerative disc disease) Elevated liver enzymes Encounter for removal of sutures Encounter for screening for other viral diseases Encounter for screening for respiratory tuberculosis Facet arthropathy, lumbar Herniated nucleus pulposus, L2-3 left History of COVID-19 (10/2022) HTN (hypertension), benign Lumbar foraminal stenosis Lumbar radiculopathy Morbid obesity Nocturnal hypoxemia Obstructive sleep apnea of adult Primary insomnia Snoring TIA (transient ischemic attack) (~2008) Surgical History History of cardiac cath (~2017) History of cholecystectomy History of testicular surgery Hx of abdominal surgery Hx of colonoscopy (02/09/23) Family History Father Diabetes mellitus Cancer Mother No pertinent past surgical history Social History household members: friend(s) Smoking Status: Former smoker alcohol intake: current Meds Home Medications and Allergies Home Medications Medication Instructions Recorded Confirmed Type gabapentin 800 mg tablet 400 mg PO QAM 04/18/23 07/11/23 History spironolactone 25 mg tablet 25 mg PO QAM #30 tabs 04/21/23 07/11/23 Rx atorvastatin 10 mg tablet 10 mg PO QPM 04/23/23 07/11/23 History fenofibrate nanocrystallized 48 mg 48 mg PO QAM 04/23/23 07/11/23 History tablet omeprazole 20 mg capsule,delayed 20 mg PO QAM 04/23/23 07/11/23 History release celecoxib 50 mg capsule (Celebrex) 100 mg PO DAILY 07/11/23 07/11/23 History Allergies Allergy/AdvReac Type Severity Reaction Status Date / Time tree and shrub pollen Allergy Mild Verified 07/11/23 11:31 duloxetine [From Cymbalta] AdvReac Unknown Disoriented Verified 07/11/23 11:31 hydrochlorothiazide AdvReac Unknown Patient Verified 07/11/23 11:31 unsure, possibly affected gallbladder Exam Vital Signs (past 8 hours): - 07/11/23 11:39 Temperature 97.1 F L Pulse Rate 88 Respiratory Rate 18 Blood Pressure 173/99 H Pulse Oximetry 98 Oxygen Delivery Method Room Air Oxygen Delivery Method Room Air Narrative Exam Narrative: Right upper quadrant ileostomy is well perfused. Assessment & Plan Assessment and plan (1) Ileostomy status: Status: Acute Plan We discussed the risks and benefits of ileostomy reversal and he would like to proceed.
--- NOTE | 2023-07-11 13:12 | SUR.OPER ---
Supine on padded OR bed, head on pillow, arms secured on padded arm boards at <90 degrees abduction, legs uncrossed, safety belt at thigh, tape over blanket over lower legs.
[2023-07-11] MEDS: PIPERACILLIN/TAZO 4.5 GM in SODIUM CHLORIDE 0.9% 100 ML IV (13:14)
[2023-07-11] MEDS: BUPIVACAINE 0.5% (PF) 30 ML, EPINEPHrine 0.15 MG INJ (14:38)
--- NOTE | 2023-07-11 14:41 | P.OP_ITS ---
Operative Date/Time/Diagnoses Date of procedure: 07/11/23 Time of procedure: 14:42 Pre-op diagnosis: Ileostomy status Post-op diagnosis: same Procedure & Clinicians Procedure: Reversal of diverting loop ileostomy Same procedure as scheduled: Yes Surgeon: Jered Gill Service Parts Coordinator: Izzy Roach Anesthesia Type: General Operative Notes Procedure in detail: Izzy Roach MD provided assistance with exposure, retraction and closure of incisions. The patient was given preoperative antibiotic and brought to the operating room. The patient was placed on the table in the supine position and general endotracheal anesthesia was induced. The appliance was removed and the ileostomy lumen was closed with several interrupted 3-0 silk sutures. The abdomen was then prepped and draped in the usual fashion and a time-out was performed. We incised at the mucocutaneous junction to free the ileostomy the skin. We then dissected the loop ileostomy away from the subcutaneous adipose tissue. We had to increase the skin incision superiorly and inferiorly by about 2 cm. We then dissected down to fascia and freed the ileostomy from the fascial defect. This allowed us to withdraw an additional 3-4 cm of bowel. Finger was able to be inserted into the peritoneal cavity and swept around to break up a few intra- abdominal adhesions. We then created enterotomies just proximal to the portion of the bowel that was in the subcutaneous adipose tissue. We then created a [id number] functional end-to-end anastomosis with the 75 mm linear cutting stapler using a blue load for the common channel and to close the enterotomies. The portion of the ileostomy that had been exterior to the fascia was discarded. We then imbricated the staple line with multiple interrupted 2-0 silk sutures. The anastomosis was then dropped back into the abdominal cavity and the anterior sheath was closed with multiple interrupted 0 Ethibond sutures. The subcutaneous adipose tissue and skin was partially closed with multiple interrupted 3-0 Vicryl sutures. A single dry 4 x 4 was inserted into the remaining wound cavity and additional dry 4x4s were placed on top covered by tape. EBL: 30 mL Post-operative Condition: stable Disposition: PACU
--- NOTE | 2023-07-11 15:25 | SUR.PHASEI ---
Report called to Emily.
--- NOTE | 2023-07-11 15:51 | SUR.PHASEI ---
Patient transferred to the floor with a black backpack and a belongings bag. Bedside report given to ELENI Diza. VS stable. IV patent. Abdominal dressing CDI.
[2023-07-11] MEDS: LACTATED RINGERS 1,000 ML 100 ML IV (16:11)
--- NOTE | 2023-07-11 16:16 | PC.NURSE ---
Pt to room from 225 PACU via bed. Pt awake, alert, and oriented x 3. IVF as ordered. SCD's on and running. Bed alarm on for safety. Pt oriented to room, call light, bed controls, and tv controls. Pt agrees to call for assistance as needed.
[2023-07-11] MEDS: HYDROCODONE/ACET 5/325 TABLET 2 TAB PO (21:33)
[2023-07-11] MEDS: ATORVASTATIN 20 MG TABLET 10 MG PO (21:34)
[2023-07-12] MEDS: LACTATED RINGERS 1,000 ML 100 ML IV (00:41)
[2023-07-12 04:00] VITALS: BP 146/78; PULSE 84; RESP 17; TEMP 36.4; O2SAT 95
[2023-07-12] MEDS: PANTOPRAZOLE DR 20 MG TABLET PO (05:13)
[2023-07-12 06:05] LABS: Add Manual Diff / Slide Review NO; Basophils Absolute Auto 0 /uL (0-100); Basophils Percent Auto 0.3 % (0-2); Eosinophils Absolute Auto 0 /uL (0-450); Hematocrit 43.5 % (41-53); Hemoglobin 15.3 g/dL (13.5-17.5); Lymphocytes Absolute Auto 2000 /uL (1100-4500); Lymphocytes Percent Auto 12.6 % (25-40); Mean Corpuscular HGB Conc 35.1 % (30-36); Mean Corpuscular Hemoglobin 31.6 PG (26-34); Mean Corpuscular Volume 90.1 fL (80-100); Monocytes Absolute Auto 800 /uL (0-900); Monocytes Percent Auto 4.8 % (3-14); Neutrophils Absolute Auto 13000 /uL (1500-7000); Neutrophils Percent Auto 82.3 % (50-75); Platelet Count 223 X10^3/uL (150-400); Red Blood Cell Count 4.83 X10^6/uL (4.5-5.9); White Blood Cell Count 15.8 X10^3/uL (4.5-11.0)
[2023-07-12 06:12] LABS: BUN Creatinine Ratio 13.9 (6-22); Blood Urea Nitrogen 10 mg/dL (9-20); Calcium 8.7 mg/dL (8.4-10.2); Carbon Dioxide 23 mmol/L (22-32); Chloride 100 mmol/L (98-107); Estimated Glomerular Filt Rate > 60 mL/min (>60); Glucose 126 mg/dL (80-110); HEMOLYSIS 24 (0-50); Potassium 4.1 mmol/L (3.4-5.1); Sodium 132 mmol/L (137-145)
[2023-07-12 07:48] VITALS: BP 130/82; PULSE 71; RESP 18; TEMP 36.3; O2SAT 95
[2023-07-12] MEDS: GABAPENTIN 400 MG CAPSULE PO (08:55)
[2023-07-12] MEDS: ENOXAPARIN 40 MG/0.4 ML SYRINGE SUBCUT (08:55)
[2023-07-12] MEDS: SPIRONOLACTONE 25 MG TABLET PO (08:55)
[2023-07-12] MEDS: CELECOXIB 100 MG CAPSULE PO (08:55)
[2023-07-12] MEDS: HYDROCODONE/ACET 5/325 TABLET 2 TAB PO (09:00)
--- NOTE | 2023-07-12 10:15 | CM.DANOTE ---
Addendum entered by NAVEEN Tomas 07/12/23 15:32: ADD: Return msg from [facility] at [facility] and they confirm they can accept the pt and just need update and HH orders when he discharges. BF Original Note: Patient is a 63 yo male who was admitted on 07/11/23 for Ileostomy Reversal. PCP: Sunshine Saravia Payer: [facility] Per Surgeon, pt had recent colonoscopy and recommendation was sigmoid resection which was scheduled for 04/25/23 and pt was recently discharged after that surgery on 04/30/23 with new ostomy and [facility]. Pt was readmitted for leaking ostomy and supply issues and was then able to d/c home with [facility] and outpt wound care. Pt tolerated reversal surgery and will slowly advance his diet to confirm he can tolerate and have bm prior to d/c and likely here a few days. SW met bedside with pt and he confirms he still lives on [address] with 4 house mates. Pt does not use DME for ambulation at baseline and is active and independent with ADLs and drives. Pt confirms that [facility] RN was assisting but due to his healing and progress he was discharged from services and not currently open with . Pt states he went to the [facility] a couple times after his last discharge and they were able to successfully help to heal his skin from the leaking ostomy. He currently is not still going to the outpt wound clinic. Pt requests new referral to [facility] RN for his new wound care from the reversal of ileostomy and states his friend still plans to transport him back home to [place] when he is medically stable. Pt does not anticipate any other needs besides RN at this time. TIFFANY called [facility] and made new referral and TIA Renee scanned completed F2F and [place] will review to confirm they can accept again. Plan: SW to follow for slowly advancing diet and bowel function for plan of return home via friend POV and new [facility] referral made. NAVEEN Tomas Discharge Planning/Care Management Advanced directive, confirm from FAMILY Start: 07/11/23 16:11 Freq: Q24H Status: Active Protocol: Document 07/11/23 16:11 CM (Rec: 07/11/23 16:13 CM [id number]) Advance Directive, confirm on record Time 16:13 Person contacted Pt - does not have one. Copy received No Copy received No Advanced directive available on record No CM Discharge Assessment Start: 07/12/23 10:10 Freq: Status: Active Protocol: Document 07/12/23 10:11 BF (Rec: 07/12/23 10:15 BF [id number]) Discharge Planning Assessment Assigned Harness Inspector NAVEEN White DPOA/Assigned Designee Name none Advance Directives? No Advance Directives on File No History Provided By Patient,Medical Record Has Patient been admitted in last 30 No days? Comment last admit in Apr 2023 this year for diverting ileostomy then d/c to home with HH Prior Living Arrangements House Household Members friend(s) Comment roommates Type of transporation used prior to Drives own vehicle admit Independent with ADL's Yes Is patient alert and oriented? Yes Caregiver for Another No Comment Recently open with [facility] for wound care Patient/Family Preference Home with Home Health Barriers to Discharge No Discharge Plan Home with Home Health Community Services Home Health Nurse Transportation Arrangement Friend Referrals Initiated Home Health Additional Comment new referral made to [facility] If patient plan is home with home health Yes: scanned : Has signed face to face form been completed? Whiteboard Updated in Patient Room with Yes name and ext. # of Harness Inspector Review Status In Process Please Provide Date Initial DC 07/12/23 Assessment Was Performed Next Review Type Continued Stay Review Pre-Anesthesia Assessment Start: 07/06/23 12:05 Freq: Status: Active Protocol: Document 07/06/23 12:05 CAB (Rec: 07/06/23 12:11 CAB [id number]) Pre-Anesthesia Assessment PAC Comment Pt is s/p lap assisted sigmoid colectomy 04/25/23. He declined a phone assessment for this surgery, states no changes in medical/medication history, no questions/concerns with upcoming surgery. Preferred Name Don Patient Information Reviewed Via Chart Review Primary Care Provider Sunshine Saravia Seen Specialist in Last 12 Months Yes Specialist Seen General surgeon,Orthopedist Primary Language Iraqi Preferred Language Iraqi Field Machinist Required No Height 180.34 cm Weight 124.284 kg Body Mass Index (BMI) 38.2 Hearing Ability Hearing Impaired,Use of Hearing Aid Visual Assist Magnifying Glass Dentition Type Teeth, Natural Present,Teeth, Broken,Teeth, Missing Barriers to Learning Auditory Hx Anesthesia Reactions No Hx Family Anesthesia Reaction No Hx Malignant Hyperthermia No Hx Blood Transfusions No Hx Blood Transfusion Reaction No Anesthesia Review Requested No Revenue Inspector No alcohol intake current alcohol intake frequency holidays/special occasions only Smoking Status Former smoker how long ago did patient quit smoking 2014 Substance Use Type marijuana Musculoskeletal Symptoms Arthralgias,Back Pain History of Falling (Recent or History of No ) Patient is completely paralyzed or No completely immobile Mental Status Oriented to own ability Is patient on oxygen? No Does patient have MCKENNA/SOB No Hx Sleep Apnea Yes CPAP/BIPAP use not prescribed Currently Taking a Beta Edu No Can You Climb a Flight of Stairs Without No SOB Hx Chest Pain No Hx SOB No Hx Syncope or Dizziness No Anti-Coagulant Therapy No Has a Continuous Miner Operator Helper No Cardiac Testing No Hx Pacemaker/ICD No Pacemaker Rep Required? No Cardiac Clearance Received Not Applicable Diet Type At Home Regular,Low Carb Dysphagia No Gastrointestinal Symptoms None Chronic UTI No Urinary Catheter Present No Hx Urinary Self Catheterization No Diabetes No Hx Drug Resistant Organism No Presence of External or Internal Medical No Devices Received a COVID vaccine? No Marital Status Lives With friend(s) Current Living Arrangements House Number of Floors (Floors) Two Floors Number of Stairs To Enter/Railing? 2 Support System Friend(s) Does the Patient Have Assistance After Yes Surgery Patient Discharge Plan Description Return Home Additional comment Pt lives on [address] Feels Safe in Current Environment Yes Been Physically Hurt or Threatened By a No Person in Current Environment Do you have thoughts of harming yourself None or others? Are you currently considering suicide? No Do you have a plan to hurt yourself or No Plan others? Do You Have Any Spiritual Beliefs That No May Affect Your HC Choices? Do You Have Any Cultural Practices That No May Affect Your HC Choices? Comment Mormonism Who Can We Speak to About Patient's Care Family, friends Identifying Code for Release of Patient Declines to issue Information Health Care Proxy/Next of Kin Thelma Leyva (good friend) Health Care Proxy Emergency Contact Name Thelma Leyva (good friend) Emergency Contact Advance Directives? No Advance Directives on File No Power of Gun Mechanic Yes: Patient still needs to get papers noterized. Power of Gun Mechanic Name Thelma Leyva (good friend) Power of Gun Mechanic Stop Bang Assessment Do you snore loudly (louder than talking No or loud enough to be heard through closed doors) Do you often feel tired, fatigued or Yes sleepy during the daytime Has anyone ever observed you stop Yes breathing while sleeping? Do you have, or are you being treated Yes for, high blood pressure Is your BMI more than 35 kg/m2 Yes Age over 50 Yes Estimated neck circumference greater Yes than 40cm or 16in Gender male Yes Result Positive
--- NOTE | 2023-07-12 12:08 | PM.PN.1 ---
Subjective Subjective Date Patient Seen: 07/12/23 Time Patient Seen: 12:08 Interval history: Don feels well today. He has tolerated clear liquid diet. No flatus yet. Exam Vital Signs (past 8 hours): - 07/12/23 07:48 Temperature 97.4 F L Pulse Rate 71 Respiratory Rate 18 Blood Pressure 130/82 Pulse Oximetry 95 Oxygen Flow Rate 0 Oxygen Delivery Method Room Air Oxygen Flow Rate 0 Narrative Exam Narrative: Abdomen soft The ileostomy site is hemostatic and the dressing was changed at bedside Objective Labs 07/12/23 05:30 07/12/23 05:30 Labs: Laboratory Results - last 24 hr 07/12/23 05:30 WBC 15.8 H RBC 4.83 Hgb 15.3 Hct 43.5 MCV 90.1 MCH 31.6 MCHC 35.1 RDW 14.0 Plt Count 223 Neut % (Auto) 82.3 H Lymph % (Auto) 12.6 L Marshall % (Auto) 4.8 Eos % (Auto) 0.0 L Baso % (Auto) 0.3 Neut # (Auto) 89758 H Lymph # (Auto) 2000 Marshall # (Auto) 800 Eos # (Auto) 0 Baso # (Auto) 0 Sodium 132 L Potassium 4.1 Chloride 100 Carbon Dioxide 23 BUN 10 Creatinine 0.72 Estimated GFR > 60 BUN/Creatinine Ratio 13.9 Glucose 126 H Calcium 8.7 PFSH Medical History DDD (degenerative disc disease) Elevated liver enzymes Encounter for removal of sutures Encounter for screening for other viral diseases Encounter for screening for respiratory tuberculosis Facet arthropathy, lumbar Herniated nucleus pulposus, L2-3 left History of COVID-19 (10/2022) HTN (hypertension), benign Lumbar foraminal stenosis Lumbar radiculopathy Morbid obesity Nocturnal hypoxemia Obstructive sleep apnea of adult Primary insomnia Snoring TIA (transient ischemic attack) (~2008) Surgical History History of cardiac cath (~2017) History of cholecystectomy History of testicular surgery Hx of abdominal surgery Hx of colonoscopy (02/09/23) Family History Father Diabetes mellitus Cancer Mother No pertinent past surgical history Social History household members: friend(s) Smoking Status: Former smoker alcohol intake: current Assessment & Plan Assessment and plan (1) Postoperative examination: Status: Acute Plan Doing well postop day 1 from ileostomy reversal Advanced to regular although he has been warned that he will likely not be able to consume much of a diet until his intestines start to move Starting Lovenox today Quality VTE Deep Vein Thrombosis/Pulmonary Embolism Present on Admission: No
[2023-07-12 20:00] VITALS: BP 145/88; PULSE 77; RESP 18; TEMP 36.2; O2SAT 94
[2023-07-12] MEDS: ATORVASTATIN 20 MG TABLET 10 MG PO (20:57)
[2023-07-13] MEDS: PANTOPRAZOLE DR 20 MG TABLET PO (06:03)
[2023-07-13 07:51] VITALS: BP 141/85; PULSE 68; RESP 18; TEMP 36.4; O2SAT 95
[2023-07-13] MEDS: GABAPENTIN 400 MG CAPSULE PO (09:32)
[2023-07-13] MEDS: ENOXAPARIN 40 MG/0.4 ML SYRINGE SUBCUT (09:32)
[2023-07-13] MEDS: SPIRONOLACTONE 25 MG TABLET PO (09:32)
--- NOTE | 2023-07-13 11:07 | CM.DPNOTE ---
DCP Note Met w/patient to review discharge plan. Patient has just spoken with Dr Gill and expects to be discharged tomorrow. Reviewed plan for [facility] services, patient appreciative for the RN oversight. Patient already has transportation arranged and has a priority boarding pass for the month plan: Discharge tomorrow, home w/friends, [facility] JW
--- NOTE | 2023-07-13 13:07 | PM.PN.1 ---
Subjective Subjective Date Patient Seen: 07/13/23 Time Patient Seen: 13:07 Interval history: Don feels well today. He has passed gas per rectum several times since yesterday evening. He has been tolerating some regular diet. The ileostomy wound dressing has been changed. He is getting pretty comfortable with doing the dressing changes by himself. Exam Vital Signs (past 8 hours): - 07/13/23 07:51 Temperature 97.6 F Pulse Rate 68 Respiratory Rate 18 Blood Pressure 141/85 H Pulse Oximetry 95 Oxygen Flow Rate 0 Oxygen Delivery Method Room Air Oxygen Flow Rate 0 Narrative Exam Narrative: In good spirits Abdomen soft Objective Labs 07/12/23 05:30 07/12/23 05:30 PFSH Medical History DDD (degenerative disc disease) Elevated liver enzymes Encounter for removal of sutures Encounter for screening for other viral diseases Encounter for screening for respiratory tuberculosis Facet arthropathy, lumbar Herniated nucleus pulposus, L2-3 left History of COVID-19 (10/2022) HTN (hypertension), benign Lumbar foraminal stenosis Lumbar radiculopathy Morbid obesity Nocturnal hypoxemia Obstructive sleep apnea of adult Primary insomnia Snoring TIA (transient ischemic attack) (~2008) Surgical History History of cardiac cath (~2017) History of cholecystectomy History of testicular surgery Hx of abdominal surgery Hx of colonoscopy (02/09/23) Family History Father Diabetes mellitus Cancer Mother No pertinent past surgical history Social History household members: friend(s) Smoking Status: Former smoker alcohol intake: current Assessment & Plan Assessment and plan (1) Ileostomy status: Status: Acute Plan Expect to be able to discharge home tomorrow and he is comfortable changing the gauze packing to his ileostomy. Quality VTE Deep Vein Thrombosis/Pulmonary Embolism Present on Admission: No
[2023-07-13] MEDS: IBUPROFEN 600 MG TABLET PO (19:49)
[2023-07-13] MEDS: HYDROCODONE/ACET 5/325 TABLET 2 TAB PO (21:06)
[2023-07-13] MEDS: ATORVASTATIN 20 MG TABLET 10 MG PO (21:06)
[2023-07-13 22:16] VITALS: BP 134/82; PULSE 74; RESP 16; TEMP 37.1; O2SAT 96
[2023-07-14] MEDS: PANTOPRAZOLE DR 20 MG TABLET PO (06:16)
[2023-07-14] MEDS: SPIRONOLACTONE 25 MG TABLET PO (10:00)
[2023-07-14] MEDS: ENOXAPARIN 40 MG/0.4 ML SYRINGE SUBCUT (10:00)
[2023-07-14] MEDS: GABAPENTIN 400 MG CAPSULE PO (10:00)
[2023-07-14] MEDS: HYDROCODONE/ACET 5/325 TABLET 2 TAB PO (12:14)
--- NOTE | 2023-07-14 12:45 | PM.DS.1 ---
History of Present Illness History of Present Illness Date Patient Seen: 07/14/23 Chief complaint: Colostomy Closure Narrative: No complications post op loop ileostomy takedown. Discharge Providers Provider Date of admission: 07/11/23 09: Discharge Date: 07/14/23 Primary care physician: Sunshine Saravia MD Discharge provider: Izzy Roach MD Summary Hospital Course Discharge Diagnosis: S/P loop ileostomy takedown Hospital Course: OR for ileostomy takedown, supportive care. Status at Discharge Cognitive/behavioral status at discharge: at baseline, oriented Functional status at discharge: independent ambulation Overall status at discharge: patient is progressing back to baseline Time Spent with Patient Time spent: Less than 30 minutes Exam Vital Signs (past 8 hours): Oxygen Delivery Method Room Air Oxygen Flow Rate 0 Objective Labs 07/12/23 05:30 07/12/23 05:30 PFS Medical History DDD (degenerative disc disease) Elevated liver enzymes Encounter for removal of sutures Encounter for screening for other viral diseases Encounter for screening for respiratory tuberculosis Facet arthropathy, lumbar Herniated nucleus pulposus, L2-3 left History of COVID-19 (10/2022) HTN (hypertension), benign Lumbar foraminal stenosis Lumbar radiculopathy Morbid obesity Nocturnal hypoxemia Obstructive sleep apnea of adult Primary insomnia Snoring TIA (transient ischemic attack) (~2008) Surgical History History of cardiac cath (~2017) History of cholecystectomy History of testicular surgery Hx of abdominal surgery Hx of colonoscopy (02/09/23) Family History Father Diabetes mellitus Cancer Mother No pertinent past surgical history Social History household members: friend(s) Smoking Status: Former smoker alcohol intake: current Discharge Plan Discharge Plan Patient Disposition: Home Provider Discharge Comment: Continue to change the gauze packing to the ileostomy wound once to twice a day until the cavity has filled in with scar tissue. Discharge orders & Medications Prescriptions: New hydrocodone-acetaminophen 5-325 mg tablet 1 tab PO Q8H PRN (Reason: pain) Qty: 14 0RF Continued atorvastatin 10 mg tablet 10 mg PO QPM omeprazole 20 mg capsule,delayed release(DR/EC) 20 mg PO QAM fenofibrate nanocrystallized 48 mg tablet 48 mg PO QAM celecoxib [Celebrex] 50 mg Capsule 100 mg PO DAILY gabapentin 800 mg tablet 400 mg PO QAM Rx Instructions: 400 mg once a day spironolactone 25 mg tablet 25 mg PO QAM Qty: 30 5RF Follow up/Referrals: Sunshine Saravia MD [Primary Care Provider] - Visit Report/Discharge Packet Stand Alone Forms: Patient Portal/API, Stroke Signs & Symptoms Discharge Data Primary Care Provider: Sunshine Saravia Quality VTE Deep Vein Thrombosis/Pulmonary Embolism Present on Admission: No
--- NOTE | 2023-07-14 13:04 | PC.NURSE ---
Patient is A&OX4, VSS, afebrile on RA. He reports passing gas this morning and states pain has been tolerable. +BS x4. He is cleared for discharge this a.m. back home. He is independent and room and ambulating in halls. After getting his belongings ready he reports pain increased and medicated per request for transport. He verbalizes understanding of wound care daily, s/sx of infection, medications, and follow up appointment with MD Gill in 2 weeks. He is escorted with all of his belongings with friends to private vehicle today at 1215 pm.
--- NOTE | 2023-07-14 14:38 | CM.DPNOTE ---
DC Note Discharge home today w/family and friends, [facility] to follow. Close outpatient follow up. [facility] updated on patient's discharge today. JW
== END 2023-07-14 12:15 | disposition home health service (06) | DRG 331 ==
PROVIDERS: Admitting Provider Surgery; Family Provider Family Medicine; PCP Family Medicine; Referring Provider Surgery; Visit Provider Surgery
PROC: 0DQB0ZZ Repair Ileum, Open Approach (ICD-10-PCS; CPT 44620; principal; 2023-07-11 12:15)
DX: Z43.2 Encounter for attention to ileostomy (principal); I10 Essential (primary) hypertension; Z87.891 Personal history of nicotine dependence; Z90.49 Acquired absence of other specified parts of digestive tract
CPT/HCPCS: 36415; 44620; 80048; 85025; J0171; J1100; J1170; J1650; J2405; J2543; J2704; J3010

== ENCOUNTER → 2023-10-10 08:10 | Outpatient (CLI) | payer MEDICARE, MEDICAID, SELFPAY ==
[2023-07-11 15:59] VITALS: BMI 38.2
[2023-10-10 19:56] LABS: Add Manual Diff / Slide Review NO; Basophils Absolute Auto 100 /uL (0-100); Basophils Percent Auto 0.6 % (0-2); Eosinophils Absolute Auto 100 /uL (0-450); Eosinophils Percent Auto 0.9 % (2-4); Hematocrit 46.7 % (41-53); Hemoglobin 16.1 g/dL (13.5-17.5); Lymphocytes Absolute Auto 3300 /uL (1100-4500); Lymphocytes Percent Auto 41.9 % (25-40); Mean Corpuscular HGB Conc 34.6 % (30-36); Mean Corpuscular Volume 92.4 fL (80-100); Monocytes Absolute Auto 600 /uL (0-900); Monocytes Percent Auto 7.7 % (3-14); Neutrophils Absolute Auto 3900 /uL (1500-7000); Neutrophils Percent Auto 48.9 % (50-75); Platelet Count 246 X10^3/uL (150-400); Red Blood Cell Count 5.05 X10^6/uL (4.5-5.9); Red Cell Distribution Width 13.2 % (11.6-14.8); White Blood Cell Count 7.9 X10^3/uL (4.5-11.0)
[2023-10-10 20:09] LABS: Alanine Aminotransferase 65 IU/L (<50); Albumin Globulin Ratio 1.4 (1.0-2.8); Alkaline Phosphatase 89 U/L (38-126); Aspartate Aminotransferase 48 IU/L (17-59); BUN Creatinine Ratio 14.4 (6-22); Bilirubin Total 1.1 mg/dL (0.2-1.3); Blood Urea Nitrogen 13 mg/dL (9-20); Calcium 9.4 mg/dL (8.4-10.2); Carbon Dioxide 23 mmol/L (22-32); Chloride 103 mmol/L (98-107); Cholesterol 129 mg/dL (140-199); Estimated Glomerular Filt Rate > 60 mL/min (>60); Globulin 2.9 g/dL (1.7-4.1); Glucose 112 mg/dL (80-110); HDL Cholesterol 30 mg/dL (40-60); HEMOLYSIS < 15 (0-50); LDL Cholesterol Calculated 69 mg/dL (<100); Potassium 4.2 mmol/L (3.4-5.1); Sodium 136 mmol/L (137-145); Total Protein 6.9 g/dL (6.3-8.2); Triglycerides 148 mg/dL (35-150)
[2023-10-10 20:10] LABS: Hemoglobin A1C% w Est Avg Glu 5.9 % (4.0-6.0)
[2023-10-10 20:34] LABS: Prostate Specific Antigen Scrn 0.266 ng/mL (0.1-4.0)
[2023-10-12 14:42] LABS: Osmolality, Serum 289 mOsmol/kg (280-301)
== END ==
PROVIDERS: Family Provider Family Medicine; PCP Family Medicine; Visit Provider Family Medicine
DX: I10 Essential (primary) hypertension (principal); R74.01 Elevation of levels of liver transaminase levels; E78.1 Pure hyperglyceridemia; R73.9 Hyperglycemia, unspecified; E87.1 Hypo-osmolality and hyponatremia; Z12.5 Encounter for screening for malignant neoplasm of prostate
CPT/HCPCS: 80053; 80061; 83036; 83930; 85025; G0103

== ENCOUNTER → 2023-11-28 13:26 | Outpatient (CLI) | payer MEDICARE, MEDICAID, SELFPAY ==
[2023-07-11 15:59] VITALS: BMI 38.2
[2023-11-28 19:44] LABS: HEMOLYSIS 35 (0-50); Iron 101 ug/dL (49-181)
[2023-11-28 20:01] LABS: Alanine Aminotransferase 75 IU/L (<50); Albumin 4.2 g/dL (3.5-5.0); Albumin Globulin Ratio 1.3 (1.0-2.8); Alkaline Phosphatase 102 U/L (38-126); Aspartate Aminotransferase 47 IU/L (17-59); BUN Creatinine Ratio 14.7 (6-22); Blood Urea Nitrogen 17 mg/dL (9-20); Calcium 9.3 mg/dL (8.4-10.2); Carbon Dioxide 25 mmol/L (22-32); Chloride 103 mmol/L (98-107); Estimated Glomerular Filt Rate > 60 mL/min (>60); Globulin 3.2 g/dL (1.7-4.1); Glucose 125 mg/dL (80-110); HEMOLYSIS 31 (0-50); Potassium 3.9 mmol/L (3.4-5.1); Sodium 137 mmol/L (137-145); Total Protein 7.4 g/dL (6.3-8.2)
[2023-11-28 20:02] LABS: Percent Iron Saturation 27 % (20-50); Total Iron Binding Capacity 372 ug/dL (261-462); Transferrin 314 mg/dL (206-381)
[2023-11-28 20:20] LABS: Prostate Specific Antigen Scrn 0.264 ng/mL (0.1-4.0)
[2023-11-28 20:24] LABS: Ferritin 40 ng/mL (18-464)
== END ==
PROVIDERS: Family Provider Family Medicine; PCP Family Medicine; Visit Provider Family Medicine
DX: Z12.5 Encounter for screening for malignant neoplasm of prostate (principal); E87.1 Hypo-osmolality and hyponatremia; I10 Essential (primary) hypertension; R74.01 Elevation of levels of liver transaminase levels
CPT/HCPCS: 80053; 82728; 83540; 83550; G0103

== ENCOUNTER → 2024-02-13 13:19 | Outpatient (CLI) | payer MEDICARE, MEDICAID, SELFPAY ==
[2023-07-11 15:59] VITALS: BMI 38.2
[2024-02-13 19:07] LABS: Prothrombin Time 11.2 SECONDS (9.4-12.5)
[2024-02-13 19:39] LABS: Alanine Aminotransferase 80 IU/L (<50); Albumin 4.4 g/dL (3.5-5.0); Albumin Globulin Ratio 1.6 (1.0-2.8); Alkaline Phosphatase 83 U/L (38-126); Aspartate Aminotransferase 67 IU/L (17-59); BUN Creatinine Ratio 12.1 (6-22); Bilirubin Total 1.5 mg/dL (0.2-1.3); Blood Urea Nitrogen 11 mg/dL (9-20); Calcium 9.1 mg/dL (8.4-10.2); Carbon Dioxide 24 mmol/L (22-32); Chloride 102 mmol/L (98-107); Estimated Glomerular Filt Rate > 60 mL/min (>60); Globulin 2.7 g/dL (1.7-4.1); Glucose 150 mg/dL (80-110); HEMOLYSIS 15 (0-50); Sodium 134 mmol/L (137-145); Total Protein 7.1 g/dL (6.3-8.2)
[2024-02-13 20:20] LABS: Hepatitis B Surface Antigen NEGATIVE s/c (NEGATIVE)
[2024-02-13 20:33] LABS: Hep C Virus Ab w/Reflex Quant NEGATIVE s/c (NEGATIVE)
[2024-02-15 02:18] LABS: Hepatitis B Core Antibody Negative (Negative)
== END ==
PROVIDERS: Family Provider Family Medicine; PCP Family Medicine; Visit Provider Family Medicine
DX: K75.9 Inflammatory liver disease, unspecified (principal); R74.01 Elevation of levels of liver transaminase levels; I10 Essential (primary) hypertension; E66.01 Morbid (severe) obesity due to excess calories; R73.03 Prediabetes; G62.9 Polyneuropathy, unspecified
CPT/HCPCS: 80053; 85610; 86038; 86704; 86706; 86803; 87340

== ENCOUNTER → 2024-03-14 10:07 | Outpatient (CLI) | payer MEDICARE, MEDICAID, SELFPAY ==
[2023-07-11 15:59] VITALS: BMI 38.2
--- NOTE | 2024-03-14 10:09 | DI.US.S_ITS ---
PROCEDURE: US ABDOMEN LIMITED INDICATIONS: Further diagnostics needed: elevated bili, ALT, AST TECHNIQUE: Real-time scanning was performed of the abdominal and retroperitoneal organs, with image documentation. COMPARISON: None. FINDINGS: Liver: Increased liver echogenicity with posterior attenuation, most consistent with moderate to severe steatosis. Gallbladder: Absent. Biliary ducts: Intrahepatic bile ducts are non-dilated. Extrahepatic bile duct caliber measures 5.7 mm. Normal is 6-7 mm or less in diameter, or 10 mm or less post-cholecystectomy. Pancreas: Visualized portions of the pancreas are sonographically normal. Miscellaneous: No free abdominal fluid. IMPRESSION: Moderate to severe hepatic steatosis. Elevated LFTs may indicate steatohepatitis. Dictated by: Suraj Dean M.D. on 03/14/2024 at 13:59 Approved by: Suraj Dean M.D. on 03/14/2024 at 14:00
== END ==
PROVIDERS: Family Provider Family Medicine; PCP Family Medicine; Referring Provider Family Medicine; Visit Provider Family Medicine
DX: K75.9 Inflammatory liver disease, unspecified (principal); K76.0 Fatty (change of) liver, not elsewhere classified; R10.32 Left lower quadrant pain; Z90.49 Acquired absence of other specified parts of digestive tract
CPT/HCPCS: 76705

== ENCOUNTER → 2024-06-26 10:45 | Outpatient (CLI) | payer MEDICARE, MEDICAID, SELFPAY ==
[2023-07-11 15:59] VITALS: BMI 38.2
[2024-06-26 19:46] LABS: Alanine Aminotransferase 99 IU/L (<50); Albumin Globulin Ratio 1.4 (1.0-2.8); Alkaline Phosphatase 81 U/L (38-126); Aspartate Aminotransferase 78 IU/L (17-59); Bilirubin Total 1.9 mg/dL (0.2-1.3); Bilirubin Unconjugated 1.5 mg/dL (0.0-1.1); Globulin 2.9 g/dL (1.7-4.1); HEMOLYSIS 22 (0-50); Total Protein 6.9 g/dL (6.3-8.2)
[2024-06-26 19:48] LABS: Hemoglobin A1C% w Est Avg Glu 5.7 % (4.0-6.0)
[2024-06-28 05:14] LABS: Ceruloplasmin 21.9 mg/dL (16.0-31.0)
[2024-06-29 20:07] LABS: Free Kappa Lt Chains, Serum 23.4 mg/L (3.3-19.4); Free Lambda Lt Chains,Serum 16.4 mg/L (5.7-26.3)
[2024-07-01 14:09] LABS: Albumin 3.4 g/dL (2.9-4.4); Alpha-1-Globulin 0.3 g/dL (0.0-0.4); Alpha-2-Globulin 0.8 g/dL (0.4-1.0); Globulin Total 3.2 g/dL (2.2-3.9); Protein, Total 6.6 g/dL (6.0-8.5)
== END ==
PROVIDERS: Family Provider Family Medicine; PCP Family Medicine; Visit Provider Family Medicine
DX: K76.0 Fatty (change of) liver, not elsewhere classified (principal); R73.9 Hyperglycemia, unspecified
CPT/HCPCS: 80076; 82390; 82525; 83036; 83883; 84155; 84165

== ENCOUNTER → 2024-10-10 09:30 | Outpatient (CLI) | payer MEDICARE, MEDICAID, SELFPAY ==
[2023-07-11 15:59] VITALS: BMI 38.2
[2024-10-10 19:17] LABS: Add Manual Diff / Slide Review NO; Basophils Absolute Auto 100 /uL (0-100); Eosinophils Absolute Auto 100 /uL (0-450); Eosinophils Percent Auto 0.9 % (2-4); Hematocrit 49.8 % (41-53); Hemoglobin 17.4 g/dL (13.5-17.5); Lymphocytes Absolute Auto 3000 /uL (1100-4500); Lymphocytes Percent Auto 36.4 % (25-40); Mean Corpuscular Hemoglobin 32.5 PG (26-34); Monocytes Absolute Auto 700 /uL (0-900); Monocytes Percent Auto 8.6 % (3-14); Neutrophils Absolute Auto 4400 /uL (1500-7000); Neutrophils Percent Auto 53.1 % (50-75); Platelet Count 207 X10^3/uL (150-400); Red Blood Cell Count 5.35 X10^6/uL (4.5-5.9); Red Cell Distribution Width 13.1 % (11.6-14.8); White Blood Cell Count 8.3 X10^3/uL (4.5-11.0)
[2024-10-10 19:22] LABS: Hemoglobin A1C% w Est Avg Glu 5.8 % (4.0-6.0)
[2024-10-10 19:23] LABS: Alanine Aminotransferase 86 IU/L (<50); Albumin 4.4 g/dL (3.5-5.0); Albumin Globulin Ratio 1.3 (1.0-2.8); Alkaline Phosphatase 93 U/L (38-126); Aspartate Aminotransferase 84 IU/L (17-59); BUN Creatinine Ratio 14.6 (6-22); Bilirubin Total 2.5 mg/dL (0.2-1.3); Blood Urea Nitrogen 14 mg/dL (9-20); Carbon Dioxide 27 mmol/L (22-32); Chloride 101 mmol/L (98-107); Cholesterol 175 mg/dL (140-199); Estimated Glomerular Filt Rate > 60 mL/min (>60); Globulin 3.3 g/dL (1.7-4.1); Glucose 126 mg/dL (80-110); HDL Cholesterol 25 mg/dL (40-60); HEMOLYSIS 25 (0-50); LDL Cholesterol Calculated 95 mg/dL (<100); Potassium 4.4 mmol/L (3.4-5.1); Sodium 137 mmol/L (137-145); Total Protein 7.7 g/dL (6.3-8.2); Triglycerides 275 mg/dL (35-150)
[2024-10-10 19:29] LABS: Prothrombin Time 11.6 SECONDS (9.4-12.5)
[2024-10-10 19:32] LABS: PTT Partial Thromboplastin Tim 37 SECONDS (25.1-36.5)
[2024-10-10 19:53] LABS: Prostate Specific Antigen Scrn 0.307 ng/mL (0.1-4.0)
[2024-10-15 13:08] LABS: ANA Screen, IFA Negative (.)
== END ==
PROVIDERS: Family Provider Family Medicine; PCP Family Medicine; Visit Provider Family Medicine
DX: K76.0 Fatty (change of) liver, not elsewhere classified (principal); R73.03 Prediabetes; E87.1 Hypo-osmolality and hyponatremia; E78.5 Hyperlipidemia, unspecified; R73.9 Hyperglycemia, unspecified; Z12.5 Encounter for screening for malignant neoplasm of prostate; I10 Essential (primary) hypertension
CPT/HCPCS: 80053; 80061; 83036; 84443; 85025; 85610; 85730; 86038; G0103

== ENCOUNTER → 2025-06-19 09:21 | Outpatient (CLI) | payer MEDICARE, MEDICAID, SELFPAY ==
[2023-07-11 15:59] VITALS: BMI 38.2
[2025-06-19 18:46] LABS: Alanine Aminotransferase 59 IU/L (<50); Albumin 4.2 g/dL (3.5-5.0); Albumin Globulin Ratio 1.4 (1.0-2.8); Alkaline Phosphatase 81 U/L (38-126); Blood Urea Nitrogen 18 mg/dL (9-20); Calcium 9.6 mg/dL (8.4-10.2); Carbon Dioxide 31 mmol/L (22-32); Chloride 98 mmol/L (98-107); Cholesterol 128 mg/dL (140-199); Estimated Glomerular Filt Rate > 60 mL/min (>60); Globulin 2.9 g/dL (1.7-4.1); Glucose 123 mg/dL (70-99); HDL Cholesterol 31 mg/dL (40-60); HEMOLYSIS < 15 (0-50); Potassium 4.0 mmol/L (3.4-5.1); Sodium 136 mmol/L (137-145); Total Protein 7.1 g/dL (6.3-8.2); Triglycerides 198 mg/dL (35-150)
[2025-06-19 19:31] LABS: Hemoglobin A1C% w Est Avg Glu 5.8 % (4.0-6.0)
[2025-06-20 07:40] LABS: Alpha 1 Anti Trypsin 149 mg/dL (101-187)
== END ==
PROVIDERS: Family Provider Family Medicine; PCP Family Medicine; Visit Provider Family Medicine
DX: K76.0 Fatty (change of) liver, not elsewhere classified (principal); I10 Essential (primary) hypertension; E78.1 Pure hyperglyceridemia; Z78.9 Other specified health status; R73.03 Prediabetes; E80.6 Other disorders of bilirubin metabolism; G47.33 Obstructive sleep apnea (adult) (pediatric); K75.9 Inflammatory liver disease, unspecified; E66.01 Morbid (severe) obesity due to excess calories
CPT/HCPCS: 80053; 80061; 82103; 83036